=== PATIENT | female | born 1940 | race Caucasian/White ===

== ENCOUNTER 2018-05-13 13:29 | Outpatient (CLI) | payer MEDICARE | END 2018-05-13 13:30 | disposition home or self-care (01) | LOC: ULT 13:29 | PROVIDERS: ATTEND Nurse Practitioner Adult Health | DX: R01.1 Cardiac murmur, unspecified (principal); I08.1 Rheumatic disorders of both mitral and tricuspid valves | CPT/HCPCS: 93306 ==

== ENCOUNTER 2018-11-30 08:43 | Inpatient (IN) | payer MEDICARE ==
[2018-11-30] MEDS ORDERED: hydrALAZINE 20 MG/ML VIAL SLOW IVP PRN (11:49)
[2018-11-30] MEDS ORDERED: Bisacodyl 10 MG SUPP PR PRN (11:49)
[2018-11-30] MEDS ORDERED: Cepastat Lozenges 1 LOZ PO PRN (11:49)
[2018-11-30] MEDS ORDERED: Loratadine 10 MG TAB PO PRN (11:49)
[2018-11-30] MEDS ORDERED: Ondansetron ODT 4 MG TAB PO PRN (11:49)
[2018-11-30] MEDS ORDERED: Loperamide HCl 2 MG CAP PO PRN (11:49)
[2018-11-30] MEDS ORDERED: Sodium Chloride 0.65% Nasal 44 ML BOT EA NARE PRN (11:49)
[2018-11-30] MEDS ORDERED: Diabetic Tussin 200 MG/10 ML UDCUP PO PRN (11:49)
[2018-11-30] MEDS ORDERED: Senokot S 8.6-50 MG TAB PO PRN (11:49)
[2018-11-30] MEDS ORDERED: Calcium Carbonate 500 MG ChewTAB PO PRN (11:49)
[2018-11-30] MEDS ORDERED: Zolpidem Tartrate 5 MG TAB PO PRN (11:49)
[2018-11-30] MEDS ORDERED: Ondansetron PF 4 MG/2 ML Vial IVP PRN (11:49)
[2018-11-30 12:28] LABS: #Eosinphils 0.4 thou/uL (0.0-0.7); #Lymphocytes 1.2 thou/uL (1.20-3.40); #Monocytes 0.9 thou/uL (0.11-0.59); #Neutrophils 8.7 thou/uL (1.40-6.50); %Basophils 0.2 % (0.0-1.0); %Eosinophils 3.2 % (0.0-10.0); %Lymphocytes 10.5 % (21.0-51.0); %Monocytes 8.2 % (0.0-10.0); %Neutrophils 77.9 % (42.0-75.0); Hemoglobin 8.3 g/dL (12.0-16.0); Mean Corpuscular HGB CONC 32.5 g/dL (32.0-36.0); Mean Corpuscular Volume 89.2 fL (78.0-98.0); Mean Platelet Volume 7.3 fL (7.4-10.4); Platelet Count 162 thou/uL (130-400); RBC Distribution Width 13.9 % (11.5-14.5); Red Blood Cell (RBC) Count 2.88 mill/uL (4.20-5.40); White Blood Cell (WBC) Count 11.2 thou/uL (4.8-10.8)
--- NOTE | 2018-11-30 12:44 | HP ---
PRIMARY CARE PHYSICIAN: Dr. Nguyễn. REASON FOR ADMISSION: Sent from rehab for urinary tract infection and weakness. HISTORY OF PRESENT ILLNESS: A 78-year-old female, who was recently hospitalized at [facility] for generalized weakness. As per report, she was there on November 13, 2018, for foul smelling urine and generalized weakness. The patient also had altered mental status. The patient also has underlying dementia with Lewy body dementia. The patient was treated with E coli urinary tract infection and subsequently this patient was transferred to rehabilitation. The patient does not have any good progress over there and she was having constipation and urinary tract infection. The patient also had echocardiography in May 2018, which showed normal EF. On November 30, the patient had abdomen and pelvis CT scan which showed finding suggestive of colonic fecal in retention and finding compatible for proctitis. The patient also had outpatient basis MRI of thoracic and lumbar spine on November 26, 2018, which showed mild spondylosis of thoracic spine with mild central canal narrowing at T10 and T11. Lumbar spine MRI showed multilevel degenerative spine changes but more pronounced changes at L4-L5 level. The patient does have subjective sensory changes in both lower extremity. She required Frazier catheterization placement. As the patient did not have any significant progress that is why rehab physician sent her back to the hospital for more evaluation. The patient has underlying diagnosis of cauda equina from lumbar stenosis. The patient yesterday routine blood test showed leukocytosis with left shift, hyponatremia and hyperkalemia. The patient has baseline dementia and that is why she is not able to provide good history. PAST MEDICAL HISTORY: Lewy body dementia, recurrent urinary tract infection, rheumatoid arthritis, polymyalgia rheumatica, physical deconditioning, frequent fall, hypertension, osteoarthritis, hypothyroidism, gastroesophageal reflux disease. PAST SURGICAL HISTORY: Unable to review at this point. ALLERGIES: NO KNOWN DRUG ALLERGIES. FAMILY HISTORY: The patient is not able to provide any good family history. SOCIAL HISTORY: The patient is from rehab. Before that the patient was living in [place], [place]. No history of tobacco, alcohol, or illicit drug abuse. FAMILY HISTORY: The patient is not able to provide any significant family. PAST PSYCHIATRIC HISTORY: Dementia, anxiety and depression. CURRENT HOME MEDICATION: 1. Amitriptyline 25 mg p.o. daily. 2. Amlodipine 2.5 mg daily. 3. Celecoxib 200 mg p.o. daily. 4. Cymbalta 60 mg b.i.d. 5. Plaquenil 400 mg b.i.d. 6. Synthroid 75 mcg p.o. daily. 7. Cytomel 5 mcg daily. 8. Lisinopril 40 mg daily. 9. Namenda 7 mg daily. 10. Methotrexate 10 mg every week. 11. Omeprazole 20 mg daily. 12. Lyrica 75 mg b.i.d. 13. Vitamin E 100 units p.o. daily. Hospital course and rehab record reviewed. Previous hospital record reviewed. REVIEW OF SYSTEM: All review system tried to review with patient but unable to review due to dementia PHYSICAL EXAMINATION: VITAL SIGNS: Currently, blood pressure 130/78, pulse 72, respiratory rate 18, temperature 98.6, saturation 100% on room air. GENERAL: The patient is currently alert, awake, chronically ill, no obvious acute distress. HEENT: Head normocephalic, atraumatic. Eyes pupils round, reactive to light. Extraocular muscle intact. ENT, oropharynx within normal limits. Moist mucous membranes. No oral lesion. No pharyngeal erythema, no exudate. NECK: Supple. No JVD. No thyromegaly. No carotid bruit. No jugular venous distention. LUNGS: Clear to auscultation without any rhonchi or rales. CARDIAC: S1, S2 regular. No murmur. No gallop. No rub. ABDOMEN: Soft. Bowel sounds present. Nontender. Nondistended. No organomegaly. No mass. No suprapubic tenderness. Frazier catheter in place. EXTREMITIES: No edema. Good distal pulsation. NEUROLOGIC: The patient is moving all 4 limbs. She has subjective sensory changes in both lower extremities below umbilicus. Detailed neurological examination is difficult to perform because of dementia. SIGNIFICANT LABORATORY DATA: Chest x-ray done yesterday showed no evidence of acute cardiopulmonary process. CT abdomen and pelvis done on November 22, 2018, showing proctitis and fecal retention with constipation. MRI thoracic spine showing mild spondylitic changes of the thoracic spine at T10 and T11. MRI lumbar spine showing multilevel lumbar stenosis with pronounced changes at L4-L5 level. CBC: WBC 16.8, hemoglobin 8.7, platelet 207 with left shift. BMP: Sodium 130, potassium 5.2, chloride 97, carbon dioxide 27, BUN 16, creatinine 0.66, glucose 83, calcium 8.5. LFT: AST 41, ALT 44, alkaline phosphatase 86, albumin 2.7. Lactic acid 1.6. Urinalysis recently suggested UTI. C difficile test was done on November 20, was negative. ASSESSMENT AND PLAN: 1. Generalized weakness with failure to thrive. 2. Recurrent urinary tract infection related with chronic indwelling Frazier catheter. 3. Proctitis and severe constipation. 4. Cauda equina syndrome possibly from lumbar stenosis with L4-L5 as well as T10 -T11 level. 5. Hyponatremia and hyperkalemia. 6. Normocytic normochromic anemia. 7. Hypoalbuminemia due to protein-calorie malnutrition. 8. Hypertension. 9. Hypothyroidism. 10. Lewy body dementia. 11. Anxiety and depression. 12. Gastroesophageal reflux disease. PLAN: 1. Full admission to medical floor. Gastroenterology consultation for proctitis. Send urine culture and start meropenem. Neurosurgery evaluation. Nutritional supplement with Ensure t.i.d. Treat constipation with MiraLAX daily. Resume selected medication. 2. DVT prophylaxis with Lovenox 40 mg subcu daily. 3. GI prophylaxis with Pepcid 20 mg p.o. b.i.d. CODE STATUS: The patient is DNR, confirmed with her daughter. The patient's daughter is surrogate decision maker. DISPOSITION PLAN: Further plan based on clinical course. The patient eventually will go back to rehab. We will continue PT/OT while in hospital as well. Job ID: [id number] [facility]
[2018-11-30 12:48] LABS: ALT (SGPT) 30 U/L (8-55); AST (SGOT) 30 U/L (5-34); Albumin 2.5 g/dL (3.4-4.8); Alkaline Phosphatase 75 U/L (40-110); Anion Gap 10 mmol/L (10-20); BUN (Urea Nitrogen) 12 mg/dL (9.8-20.1); Bilirubin, Total 0.3 mg/dL (0.2-1.2); Calc. Creatinine Clearance 78 mL/min (70-130); Calcium 8.4 mg/dL (7.8-10.44); Carbon Dioxide 26 mmol/L (23-31); Chloride 100 mmol/L (98-107); Estimated GFR-MDRD Greater than 90; Globulin 2.8 g/dL (2.4-3.5); Glucose 79 mg/dL (83-110); Potassium 4.3 mmol/L (3.5-5.1); Protein, Total 5.3 g/dL (6.0-8.3); Sodium 132 mmol/L (136-145)
[2018-11-30 12:54] VITALS: BMI 25.7
[2018-11-30] MEDS: MEROPENEM 1 GM/50 ML 1 GM in Premix Bag 1 BAG IVPB SCH ×2 (14:22→21:48)
[2018-11-30] MEDS: DULoxetine 60 MG CAP PO SCH (20:23)
[2018-11-30] MEDS: Pregabalin 75 MG CAP PO SCH (20:23)
[2018-11-30] MEDS: Famotidine 20 MG TAB PO SCH (20:28)
[2018-11-30] MEDS ORDERED: Hydroxychloroquine Sulfate 200 MG TAB PO SCH (21:00)
[2018-11-30] MEDS ORDERED: Amitriptyline HCl 25 MG TAB PO SCH (22:30)
[2018-11-30] MEDS: Acetaminophen 325 MG TAB PO PRN (22:44)
--- NOTE | 2018-12-01 01:19 | CON ---
DATE OF CONSULTATION: This is Iggy Cai PA-C dictating a report for Oskar France MD. This is a 50-minute initial patient evaluation of which greater than 50% of the exam was spent counseling and coordinating the patient's care. Remainder of the exam was spent in review of the patient's medical records and formulation of treatment plan as well as review of appropriate imaging studies. CHIEF COMPLAINT: Bilateral lower extremity weakness with bowel and bladder dysfunction over the past 2 weeks. HISTORY OF PRESENT ILLNESS: Ms. Hightower is a pleasant 78-year-old female, who is a [facility] for [facility] above complaints. She and her daughter provides her history. Apparently, the patient was very high functioning, although required the use of a walker over the past 2 years, but since November 08 has had some difficulty with walking and some falls. She was diagnosed with a urinary tract infection and then was placed in [facility]. Since November 12, 2018, the patient has been unable to stand secondary to significant paresthesias and dysesthesias into the bilateral feet. The patient states she feels as though she is walking through concrete and this has limited her mobility. She does not complain much in the way of back pain, but does have some saddle anesthesia. She has had significant constipation over the past 1 to 2 weeks. In hindsight, the patient and her daughter note that she likely has been dealing with these symptoms, especially some low back pain and right leg paresthesias over the past 2 years. Her symptoms have worsened over the past 8 weeks and have become severe over the past 2 weeks. Of note, the patient has been seen by Dr. Martinez with Neurology and possibly has a diagnosis of Lewy body dementia versus Parkinson's. The patient again has noticed significant decreased sensation into the right lower extremity. She is on Plaquenil for rheumatoid arthritis and was previously on methotrexate; however, has not been on the methotrexate for the past 2 weeks. She is not on any blood thinners. The patient's thoracic MRI shows some mild to moderate stenosis throughout multiple levels of the thoracic spine, what is more concerning is her lumbar spine. She has significant severe narrowing from virtually L1-S1. I believe that this may be causing significant impingement and leading to her cauda equina dysfunction and significant right foot weakness and right leg paresthesias. PHYSICAL EXAMINATION: The patient is awake, alert, and appropriate. Her GCS is 15. She correctly provides history and that she is originally from [place], [place]. She follows commands equally in all 4 extremities. However, she does have overall generalized weakness in the bilateral lower extremities. She has severe weakness into right dorsiflexion and plantar flexion. She has decreased sensation to light touch in the bilateral feet as well as some decreased sensation in the saddle region. She has significant bilateral gluteal pressure sores that appear to be stage II, if not into stage III. This appear to be well away from the lumbar spine. She is able to correctly identify a pen and correctly define its purpose as well as define the definition of an island. She is very neurologically intact, appears to be very high functioning. IMPRESSION DIAGNOSES: 1. Progressive worsening of low back pain and right foot weakness. 2. Right leg paresthesias and bilateral feet paresthesias, worse on the right. 3. Possible Lewy body dementia. 4. Significant bladder retention with urinary tract infection, on antibiotics. 5. Significant constipation. 6. History of rheumatoid arthritis, on Plaquenil and history of being on methotrexate. PLAN: At this time, I discussed the patient's case and imaging with Dr. France. We have discussed the possibility of an L1-S1 laminectomy, partial facetectomies and foraminotomies. This case has been postponed for tomorrow. I have discussed in great detail the procedure and risks and benefits. The patient and her daughter wished to proceed with the surgical intervention. Her hemoglobin is low at 8.3, and we will order 2 units of blood. Also, obviously she be n.p.o. at midnight. I have let the patient and her family know that the surgery should halt the progression of further bowel or bladder dysfunction as well as right foot weakness, but we can't guarantee that. She will significantly regain any type of function. They are aware of this and still appreciative and would like to proceed with surgery. We will obtain consent. Please call with any changes in the patient's neurologic status, otherwise she needs to be n.p.o. at midnight and we will proceed with L1-S1 laminectomies, partial facetectomies, foraminotomies tomorrow. Job ID: [id number]
[2018-12-01] MEDS: Levothyroxine Sodium 75 MCG TAB PO SCH (02:43)
[2018-12-01] MEDS: MEROPENEM 1 GM/50 ML 1 GM in Premix Bag 1 BAG IVPB SCH ×3 (06:17→21:54)
[2018-12-01 06:59] LABS: Anion Gap 9 mmol/L (10-20); BUN (Urea Nitrogen) 10 mg/dL (9.8-20.1); Calc. Creatinine Clearance 88 mL/min (70-130); Calcium 8.4 mg/dL (7.8-10.44); Carbon Dioxide 27 mmol/L (23-31); Chloride 100 mmol/L (98-107); Estimated GFR-MDRD Greater than 90; Glucose 74 mg/dL (83-110); Potassium 3.8 mmol/L (3.5-5.1); Sodium 132 mmol/L (136-145)
[2018-12-01] MEDS ORDERED: Fleet Enema 133 ML BOT PR PRN (07:35)
[2018-12-01] MEDS ORDERED: Milk Of Magnesia 30 ML UDCUP PO PRN (07:35)
[2018-12-01 08:14] LABS: #Eosinphils 0.1 thou/uL (0.0-0.7); #Lymphocytes 1.3 thou/uL (1.20-3.40); #Neutrophils 7.4 thou/uL (1.40-6.50); %Basophils 0.4 % (0.0-1.0); %Eosinophils 0.5 % (0.0-10.0); %Lymphocytes 13.7 % (21.0-51.0); %Neutrophils 75.4 % (42.0-75.0); Hemoglobin 11.2 g/dL (12.0-16.0); Mean Corpuscular HGB CONC 33.8 g/dL (32.0-36.0); Mean Corpuscular Hemoglobin 29.1 pg (27.0-31.0); Mean Platelet Volume 7.6 fL (7.4-10.4); Platelet Count 165 thou/uL (130-400); RBC Distribution Width 14.1 % (11.5-14.5); Red Blood Cell (RBC) Count 3.86 mill/uL (4.20-5.40); White Blood Cell (WBC) Count 9.8 thou/uL (4.8-10.8)
[2018-12-01] MEDS: DULoxetine 60 MG CAP PO SCH ×2 (08:20→21:03)
[2018-12-01] MEDS: Pregabalin 75 MG CAP PO SCH ×2 (08:20→21:02)
[2018-12-01] MEDS: Lisinopril 20 MG TAB PO SCH (08:21)
[2018-12-01] MEDS: Amlodipine 5 MG TAB PO SCH (08:21)
[2018-12-01] MEDS: Famotidine 20 MG TAB PO SCH (08:22)
[2018-12-01] MEDS: Liothyronine Sodium 5 MCG TAB PO SCH (08:29)
[2018-12-01] MEDS: Multivitamin W/ Minerals 1 TAB PO SCH (08:31)
[2018-12-01] MEDS: Cyanocobalamin (Vitamin B-12) 1,000 MCG TAB PO SCH (08:32)
[2018-12-01] MEDS: Folic Acid 1 MG TAB PO SCH (08:32)
[2018-12-01] MEDS ORDERED: Amitriptyline HCl 25 MG TAB PO SCH (09:00)
[2018-12-01] MEDS ORDERED: Enoxaparin Sodium 40 MG/0.4 ML SYRINGE SC SCH (09:00)
[2018-12-01] MEDS ORDERED: Ondansetron HCl/PF 4 MG/2 ML Vial IVP PRN ×3 (09:44→16:37)
[2018-12-01] MEDS: Polyethylene Glycol 3350 17 GM Packet PO SCH (09:47)
[2018-12-01] MEDS: Nystatin 500,000 UNITS/5 ML UDCUP PO SCH ×4 (09:47→21:02)
--- NOTE | 2018-12-01 10:15 | PDOC.HOSPP ---
- Subjective Encounter Date: 12/01/18 Encounter Time: 09:00 Subjective: Patient seen and examined. No new complaints. No overnight events - Objective Vital Signs & Weight: Vital Signs (12 hours) Temp Pulse Pulse Resp BP BP BP 12/01/18 08:21 93 151/73 H 12/01/18 07:22 98.9 F 93 18 151/73 H 12/01/18 05:10 98.4 F 97 18 137/88 12/01/18 02:46 97.7 F 85 20 119/70 12/01/18 02:15 98.1 F 86 20 117/68 12/01/18 01:50 98.1 F 87 20 117/68 12/01/18 00:17 99.1 F 93 20 125/65 11/30/18 22:53 98.9 F 96 20 129/64 Pulse Ox 12/01/18 08:21 12/01/18 07:22 96 12/01/18 05:10 97 12/01/18 02:46 97 12/01/18 02:15 97 12/01/18 01:50 96 12/01/18 00:17 93 L 11/30/18 22:53 92 L Weight Weight 145 lb 6.4 oz I&O: 11/30/18 12/01/18 12/02/18 06:59 06:59 06:59 Intake Total 1000 Output Total 850 Balance 150 Result Diagrams: 12/01/18 06:29 12/01/18 06:29 Hospitalist ROS - Review of Systems ENT: denies: ear pain, ear discharge, nose pain, nose discharge, nose congestion , mouth pain, mouth swelling, throat pain, throat swelling, other Respiratory: denies: cough, dry, shortness of breath, hemoptysis, SOB with excertion, pleuritic pain, sputum, wheezing, other Cardiovascular: denies: chest pain, palpitations, orthopnea, paroxysmal noc. dyspnea, edema, light headedness, other Gastrointestinal: denies: nausea, vomiting, abdominal pain, diarrhea, constipation, melena, hematochezia, other Genitourinary: denies: dysuria, frequency, incontinence, hematuria, retention, other Musculoskeletal: denies: neck pain, shoulder pain, arm pain, back pain, hand pain, leg pain, foot pain, other Other: not reliable due to her dementia - Medication Medications: Active Medications Generic Name Dose Route Start Last Admin Trade Name Yomi PRN Reason Stop Dose Admin Acetaminophen 650 mg 11/30/18 11:49 11/30/18 22:44 Tylenol PO 650 mg Q4H PRN Administration Headache/Fever/Mild Pain (1-3) Amlodipine Besylate 2.5 mg 12/01/18 09:00 12/01/18 08:21 Norvasc PO 2.5 mg DAILY BETHANY Administration Cyanocobalamin 1,000 mcg 12/01/18 09:00 12/01/18 08:32 Vitamin B-12 PO Not Given DAILY BETHANY Duloxetine HCl 60 mg 11/30/18 21:00 12/01/18 08:20 Cymbalta PO 60 mg BID BETHANY Administration Famotidine 20 mg 11/30/18 21:00 12/01/18 08:22 Pepcid PO 20 mg BID BETHANY Administration Folic Acid 1 mg 12/01/18 09:00 12/01/18 08:32 Folvite PO Not Given DAILY [facility] Meropenem 1 gm/ Device 50 mls @ 200 mls/hr 11/30/18 14:00 12/01/18 06:17 IVPB 50 mls Q8HR BETHANY Administration Iron/Minerals/Multivitamins 1 tab 12/01/18 09:00 12/01/18 08:31 Theragran M PO Not Given DAILY BETHANY Levothyroxine Sodium 75 mcg 12/01/18 06:00 12/01/18 02:43 Synthroid PO Not Given 0600 [facility] Liothyronine Sodium 5 mcg 12/01/18 09:00 12/01/18 08:29 Cytomel PO 5 mcg DAILY BETHANY Administration Lisinopril 40 mg 12/01/18 09:00 12/01/18 08:21 Zestril PO 40 mg DAILY BETHANY Administration Nystatin 500,000 units 12/01/18 09:00 12/01/18 09:47 Mycostatin PO 500,000 units QID BETHANY Administration Pantoprazole Sodium 40 mg 12/01/18 09:00 12/01/18 09:47 Protonix PO 40 mg DAILY BETHANY Administration Polyethylene Glycol 17 gm 12/01/18 09:00 12/01/18 09:47 Miralax PO Not Given DAILY [facility] Pregabalin 75 mg 11/30/18 21:00 12/01/18 08:20 Lyrica PO 75 mg BID BETHANY Administration Sodium Chloride 10 ml 11/30/18 21:00 12/01/18 08:33 Flush - Normal Saline IVF 10 ml Q12HR BETHANY Administration Vitamin E 200 units 12/01/18 09:00 12/01/18 08:32 Vitamin E PO Not Given DAILY BETHANY - Exam General Appearance: NAD, awake alert Eye: PERRL, anicteric sclera ENT: normocephalic atraumatic, no oropharyngeal lesions Neck: supple, symmetric, no JVD, no thyromegaly Heart: RRR, no murmur, no gallops, no rubs, normal peripheral pulses Respiratory: CTAB, no wheezes, no rales, no ronchi Gastrointestinal: soft, non-tender, non-distended, normal bowel sounds, no palpable masses, no hepatomegaly Extremities: no cyanosis, no clubbing, no edema Skin: normal turgor, no lesions Neurological - other findings: weakness noted in leg Musculoskeletal: normal tone, normal strength Psychiatric: normal affect, normal behavior Hosp A/P (1) Cauda equina syndrome Code(s): G83.4 - CAUDA EQUINA SYNDROME Status: Acute Plan: due to lumbar stenosis (2) Proctitis Code(s): K62.89 - OTHER SPECIFIED DISEASES OF ANUS AND RECTUM Status: Acute (3) UTI (urinary tract infection) Status: Acute Qualifiers: Urinary tract infection type: catheter-associated UTI Indwelling urinary catheter type: indwelling urethral catheter (4) Anemia, normocytic normochromic Code(s): D64.9 - ANEMIA, UNSPECIFIED Status: Chronic (5) Dementia Code(s): F03.90 - UNSPECIFIED DEMENTIA WITHOUT BEHAVIORAL DISTURBANCE Status: Chronic (6) Hypothyroidism Code(s): E03.9 - HYPOTHYROIDISM, UNSPECIFIED Status: Chronic (7) Rheumatoid arthritis Code(s): M06.9 - RHEUMATOID ARTHRITIS, UNSPECIFIED Status: Chronic (8) Severe muscle deconditioning Code(s): R29.898 - OTH SYMPTOMS AND SIGNS INVOLVING THE MUSCULOSKELETAL SYSTEM Status: Chronic (9) Constipation Code(s): K59.00 - CONSTIPATION, UNSPECIFIED Status: Acute - Plan old records reviewed/req, plan discussed w/ family, continue antibiotics, DVT proph w/lovenox 09/29/19- continue meropenam for UTI and follow culture result, neurosurgeon planning to do L5 S1 lumbar laminectomy today, discussed with daughter, home medication reconciled, medication reviewed as above, symptomatic treatment
[2018-12-01] MEDS ORDERED: Ondansetron PF 4 MG/2 ML Vial ONE (10:38)
[2018-12-01] MEDS ORDERED: ePHEDrine 50 MG/ML VIAL ONE (10:38)
[2018-12-01] MEDS ORDERED: Lidocaine 1% PF 5 ML VIAL ONE (10:38)
[2018-12-01] MEDS ORDERED: Glycopyrrolate 0.2 MG/ML 5 ML SYRINGE ONE (10:38)
[2018-12-01] MEDS ORDERED: PROPOFOL 200 MG/20 ML VIAL ONE (10:38)
[2018-12-01] MEDS ORDERED: PHENYLEPHRINE-NS 100 MCG/ML 10 ML SYRINGE ONE (10:38)
[2018-12-01] MEDS ORDERED: Rocuronium Bromide 10 MG/ML (10ML VIAL) ONE (10:38)
[2018-12-01] MEDS ORDERED: Fentanyl 250 MCG/5 ML VIAL ONE (11:32)
[2018-12-01] MEDS ORDERED: Thrombin 5000 UNITS/5 ML VIAL ONE ×2 (12:02→14:20)
[2018-12-01] MEDS ORDERED: Sodium Chloride 0.9% 10 ML ONE (12:02)
[2018-12-01] MEDS: Lidocaine Viscous Sol 2% 15 ml UD Cup SSP SCH ×3 (12:22→21:02)
--- NOTE | 2018-12-01 12:32 | PRG ---
DATE OF SERVICE: 12/01/2018 SUBJECTIVE: Ms. Hightower is a 78-year-old woman. Our team was contacted by Dr. Nguyễn for progressive cauda equina syndrome and essentially manifested by weakness, pain, numbness, difficulty ambulating, and finally saddle anesthesia. As such, MRI was obtained and demonstrates severe stenosis from L1-S1. Given the severity of her stenosis, I recommended transfer from inpatient rehab to [facility] for multilevel lumbar laminectomy. She has been admitted operating room tomorrow. Job ID: [id number]
[2018-12-01] MEDS ORDERED: Albumin 5% 500 ML ONE (13:23)
[2018-12-01] MEDS ORDERED: Phenylephrine HCL 10 MG/ML VIAL ONE ×3 (13:23→13:35)
[2018-12-01] MEDS ORDERED: Morphine 2 MG/ML SYRINGE SLOW IVP PRN (16:36)
[2018-12-01] MEDS ORDERED: Meperidine HCl/PF 25 MG/ML VIAL SLOW IVP PRN (16:37)
[2018-12-01] MEDS ORDERED: Promethazine HCl 25 MG/ML VIAL IM PRN (16:37)
[2018-12-01] MEDS ORDERED: Promethazine HCl 25 MG/ML VIAL SLOW IVP PRN (16:37)
[2018-12-01] MEDS ORDERED: HYDROmorphone 2 MG/ML VIAL SLOW IVP PRN (16:37)
[2018-12-01] MEDS ORDERED: Fentanyl 100 MCG/2 ML VIAL ONE (17:43)
[2018-12-01] MEDS ORDERED: tiZANidine HCl 4 MG TAB PO PRN (20:15)
[2018-12-01] MEDS: CEFAZOLIN 2 GM in Premix Bag 1 BAG IVPB SCH (21:00)
[2018-12-01] MEDS: Amitriptyline HCl 25 MG TAB PO SCH (21:02)
[2018-12-02] MEDS: Acetaminophen 325 MG TAB PO PRN ×2 (00:43→11:53)
[2018-12-02] MEDS: CEFAZOLIN 2 GM in Premix Bag 1 BAG IVPB SCH ×3 (04:14→19:21)
[2018-12-02] MEDS: HYDROcodone/Acetaminophen 5/325 mg Tablet PO PRN ×2 (04:20→19:18)
[2018-12-02 04:44] LABS: Anion Gap 12 mmol/L (10-20); BUN (Urea Nitrogen) 16 mg/dL (9.8-20.1); Calc. Creatinine Clearance 82 mL/min (70-130); Calcium 8.4 mg/dL (7.8-10.44); Carbon Dioxide 25 mmol/L (23-31); Chloride 99 mmol/L (98-107); Estimated GFR-MDRD Greater than 90; Glucose 126 mg/dL (83-110); Potassium 4.6 mmol/L (3.5-5.1); Sodium 131 mmol/L (136-145)
[2018-12-02 04:59] LABS: Band 2 % (5-11); Hemoglobin 9.5 g/dL (12.0-16.0); Lymphocytes 6 % (21-51); MDiff Complete? YES; Mean Corpuscular Hemoglobin 29.7 pg (27.0-31.0); Mean Corpuscular Volume 87.2 fL (78.0-98.0); Mean Platelet Volume 7.8 fL (7.4-10.4); Monocytes 3 % (0-10); Myelocyte 1 % (0-0); Neutrophil 88 % (42-75); Platelet Count 204 thou/uL (130-400); RBC Distribution Width 13.9 % (11.5-14.5); Red Blood Cell (RBC) Count 3.21 mill/uL (4.20-5.40); White Blood Cell (WBC) Count 19.4 thou/uL (4.8-10.8)
[2018-12-02] MEDS: MEROPENEM 1 GM/50 ML 1 GM in Premix Bag 1 BAG IVPB SCH ×3 (06:19→22:12)
[2018-12-02] MEDS: Lidocaine Viscous Sol 2% 15 ml UD Cup SSP SCH ×4 (06:20→23:18)
[2018-12-02] MEDS: Levothyroxine Sodium 75 MCG TAB PO SCH (06:20)
[2018-12-02] MEDS: Liothyronine Sodium 5 MCG TAB PO SCH (08:31)
[2018-12-02] MEDS: Lisinopril 20 MG TAB PO SCH (08:33)
[2018-12-02] MEDS: Cyanocobalamin (Vitamin B-12) 1,000 MCG TAB PO SCH (08:33)
[2018-12-02] MEDS: Amlodipine 5 MG TAB PO SCH (08:34)
[2018-12-02] MEDS: Folic Acid 1 MG TAB PO SCH (08:34)
[2018-12-02] MEDS: DULoxetine 60 MG CAP PO SCH ×2 (08:34→19:19)
[2018-12-02] MEDS: Multivitamin W/ Minerals 1 TAB PO SCH (08:36)
[2018-12-02] MEDS: Pregabalin 75 MG CAP PO SCH ×2 (08:36→19:19)
[2018-12-02] MEDS: Polyethylene Glycol 3350 17 GM Packet PO SCH (08:38)
--- NOTE | 2018-12-02 09:34 | CON ---
DATE OF CONSULTATION: 12/01/2018 REASON FOR CONSULTATION: CAT scan showing thickening of the rectal vault. HISTORY OF PRESENT ILLNESS: Ms. Patricia Hightower is a very pleasant 78-year- old female, hospitalized here with UTI and some constipation recently. She was at rehab for a while, came back yesterday because of worsening clinical condition. The patient is a very pleasant, elderly female, appears very comfortable. She is awake, alert, and communicative. Although, she has history of dementia, she is very communicative. She was seen in the room along with the patient's daughter, Isela. The patient apparently has had some chronic back pain over the last year or so. She also has noted some paresthesia of the lower extremities approximately a couple of months ago. She felt like her feet were lead and did not have any feeling. She also developed right footdrop for a month ago. The patient had CAT scan of the spine and MRI and was found to have spinal stenosis and cauda equina syndrome. She is being seen by Neurosurgery Service and plan is being is made to do surgery today. Her daughter tells me her muscles fully functional until probably a month ago. She is getting around with a walker and she has enjoyed walking. Over the last one month, her ability for movement is markedly decreased. She cannot stand up and she has weakness in legs. She also has constipation for nearly 10 days and for several days, she was getting laxatives. Finally, one day her bowel opened up and she had multiple uncontrollable diarrhea. She was seen by Dr. Vyas and had a stool exam done, came back negative for C difficile . She had a stool yesterday but no stool today. No hematochezia. No melena. No relevant history. PAST MEDICAL HISTORY: 1. History of dementia, told it was Lewy body dementia by Dr. Martinez a year ago. 2. Recurrent UTI. 3. Rheumatoid arthritis. 4. Polymyalgia rheumatica. 5. Physical deconditioning. 6. Hypertension. 7. Osteoarthritis. 8. Hypothyroidism. 9. Gastroesophageal reflux disease. SOCIAL HISTORY: The patient does not smoke or drink alcohol. ALLERGIES: NONE. MEDICATION LIST: Reviewed. REVIEW OF SYSTEMS: CONSTITUTIONAL: Has history of weakness, not able to move around, has weakness in extremities, history of loss of bowel control. MALE INFERTILITY SPECIALIST: History of dementia. She also has recently which have resolved. No chronic headache. No syncope. RESPIRATORY: No history of chronic cough or hemoptysis. No dyspnea, orthopnea , or PND. CARDIOVASCULAR: No chest pain. No dyspnea, orthopnea, or PND. GI: History of constipation, followed by diarrhea and also has history of fecal incontinence. Sometimes, she does not really feel the stool coming out. PHYSICAL EXAMINATION: GENERAL: She is a very pleasant female, appears very comfortable. She is awake, alert, and communicative. VITAL SIGNS: She is afebrile. Pulse is 92, blood pressure 137/63. HEENT: Conjunctivae are clear. NECK: Supple. No adenitis or thyromegaly noted. CARDIOVASCULAR: First and second heart sounds heard. LUNGS: Clear to auscultation. ABDOMEN: Soft. No organomegaly. No tenderness. No masses. EXTREMITIES: Reveal no edema. IMPRESSION: 1. Back pain, right footdrop, and also appears to have some spinal cord compression from her spinal stenosis and possibly degenerative joint disease. The plan is being made for surgery today. 2. History of constipation, diarrhea, fecal incontinence, mostly from her spinal cord compression_. The CAT scan does show thickening of the rectal vault and I believe mostly from fecal impaction. At the present time, she has no active GI symptoms. I did talk to Isela, her daughter about this information. I told her she may need a proctoscopy sometimes in the future, this will be done as nonurgent. The plan is for her to have surgery today and I will follow her up in the next couple of days. Hopefully, we can do a proctoscopy before discharge. Job ID: [id number] [facility]
[2018-12-02] MEDS: Nystatin 500,000 UNITS/5 ML UDCUP PO SCH ×4 (09:39→23:18)
--- NOTE | 2018-12-02 10:37 | PDOC.HOSPP ---
- Subjective Encounter Date: 12/02/18 Encounter Time: 08:40 Subjective: pt has lumbar laminectomy yesterday, Patient seen and examined. No new complaints. No overnight events - Objective Vital Signs & Weight: Vital Signs (12 hours) Temp Pulse Resp BP BP BP Pulse Ox 12/02/18 08:34 89 110/66 12/02/18 08:33 110/66 12/02/18 08:15 92 L 12/02/18 07:48 98.1 F 89 16 110/56 L 110/66 91 L 12/02/18 04:28 98.3 F 95 18 98/51 L 95 12/02/18 00:47 98.3 F 103 H 18 123/62 99 Weight Weight 145 lb 6.4 oz I&O: 12/01/18 12/02/18 12/03/18 06:59 06:59 06:59 Intake Total 1000 Output Total 850 1150 Balance 150 -1150 Result Diagrams: 12/02/18 04:08 12/02/18 04:08 Hospitalist ROS - Review of Systems ENT: denies: ear pain, ear discharge, nose pain, nose discharge, nose congestion , mouth pain, mouth swelling, throat pain, throat swelling, other Respiratory: denies: cough, dry, shortness of breath, hemoptysis, SOB with excertion, pleuritic pain, sputum, wheezing, other Cardiovascular: denies: chest pain, palpitations, orthopnea, paroxysmal noc. dyspnea, edema, light headedness, other Gastrointestinal: denies: nausea, vomiting, abdominal pain, diarrhea, constipation, melena, hematochezia, other Genitourinary: denies: dysuria, frequency, incontinence, hematuria, retention, other Musculoskeletal: denies: neck pain, shoulder pain, arm pain, back pain, hand pain, leg pain, foot pain, other Other: not reliable due to dementia - Medication Medications: Active Medications Generic Name Dose Route Start Last Admin Trade Name Freq PRN Reason Stop Dose Admin Acetaminophen 650 mg 11/30/18 11:49 12/02/18 00:43 Tylenol PO 650 mg Q4H PRN Administration Headache/Fever/Mild Pain (1-3) Hydrocodone Bitart/Acetaminophen 1 tab 11/30/18 11:49 12/02/18 04:20 [place] 5/325 PO 1 tab Q4H PRN Administration Moderate Pain (4-6) Amitriptyline HCl 25 mg 12/01/18 21:00 12/01/18 21:02 Elavil PO 25 mg HS BETHANY Administration Amlodipine Besylate 2.5 mg 12/01/18 09:00 12/02/18 08:34 Norvasc PO 2.5 mg DAILY BETHANY Administration Cyanocobalamin 1,000 mcg 12/01/18 09:00 12/02/18 08:33 Vitamin B-12 PO 1,000 mcg DAILY BETHANY Administration Duloxetine HCl 60 mg 11/30/18 21:00 12/02/18 08:34 Cymbalta PO 60 mg BID BETHANY Administration Folic Acid 1 mg 12/01/18 09:00 12/02/18 08:34 Folvite PO 1 mg DAILY BETHANY Administration Meropenem 1 gm/ Device 50 mls @ 200 mls/hr 11/30/18 14:00 12/02/18 06:19 IVPB 50 mls Q8HR BETHANY Administration Iron/Minerals/Multivitamins 1 tab 12/01/18 09:00 12/02/18 08:36 Theragran M PO 1 tab DAILY BETHANY Administration Levothyroxine Sodium 75 mcg 12/01/18 06:00 12/02/18 06:20 Synthroid PO 75 mcg 0600 BETHANY Administration Lidocaine HCl 5 ml 12/01/18 11:30 12/02/18 06:20 Xylocaine 2% Viscous SSP 5 ml ACHS BETHANY Administration Liothyronine Sodium 5 mcg 12/01/18 09:00 12/02/18 08:31 Cytomel PO 5 mcg DAILY BETHANY Administration Lisinopril 40 mg 12/01/18 09:00 12/02/18 08:33 Zestril PO 40 mg DAILY BETHANY Administration Nystatin 500,000 units 12/01/18 09:00 12/02/18 09:39 Mycostatin PO 500,000 units QID BETHANY Administration Pantoprazole Sodium 40 mg 12/01/18 09:00 12/02/18 08:35 Protonix PO 40 mg DAILY BETHANY Administration Polyethylene Glycol 17 gm 12/01/18 09:00 12/02/18 08:38 Miralax PO 17 gm DAILY BETHANY Administration Pregabalin 75 mg 11/30/18 21:00 12/02/18 08:36 Lyrica PO 75 mg BID BETHANY Administration Sodium Chloride 10 ml 11/30/18 21:00 12/02/18 08:44 Flush - Normal Saline IVF 10 ml Q12HR BETHANY Administration Tizanidine HCl 2 mg 12/01/18 20:15 12/02/18 04:20 Zanaflex PO 2 mg TID PRN Administration Muscle Spasm Vitamin E 200 units 12/01/18 09:00 12/02/18 08:32 Vitamin E PO Not Given DAILY BETHANY - Exam General Appearance: NAD, awake alert Eye: PERRL, anicteric sclera ENT: normocephalic atraumatic, no oropharyngeal lesions Neck: supple, symmetric, no JVD, no thyromegaly Heart: RRR, no murmur, no gallops, no rubs, normal peripheral pulses Respiratory: CTAB, no wheezes, no rales, no ronchi Gastrointestinal: soft, non-tender, non-distended, normal bowel sounds Extremities: no cyanosis, no clubbing Skin: normal turgor, no lesions Musculoskeletal: normal tone, normal strength Psychiatric: normal affect, normal behavior Hosp A/P (1) Cauda equina syndrome Code(s): G83.4 - CAUDA EQUINA SYNDROME Status: Acute Plan: s/p lumbar laminectomy (2) Proctitis Code(s): K62.89 - OTHER SPECIFIED DISEASES OF ANUS AND RECTUM Status: Acute (3) UTI (urinary tract infection) Status: Acute Qualifiers: Urinary tract infection type: catheter-associated UTI Indwelling urinary catheter type: indwelling urethral catheter (4) Anemia, normocytic normochromic Code(s): D64.9 - ANEMIA, UNSPECIFIED Status: Chronic (5) Dementia Code(s): F03.90 - UNSPECIFIED DEMENTIA WITHOUT BEHAVIORAL DISTURBANCE Status: Chronic (6) Hypothyroidism Code(s): E03.9 - HYPOTHYROIDISM, UNSPECIFIED Status: Chronic (7) Rheumatoid arthritis Code(s): M06.9 - RHEUMATOID ARTHRITIS, UNSPECIFIED Status: Chronic (8) Severe muscle deconditioning Code(s): R29.898 - OTH SYMPTOMS AND SIGNS INVOLVING THE MUSCULOSKELETAL SYSTEM Status: Chronic (9) Constipation Code(s): K59.00 - CONSTIPATION, UNSPECIFIED Status: Acute - Plan old records reviewed/req, morgan catheter, continue antibiotics, PT/OT, marketing services coordinator 12/01/18- continue meropenam for UTI and follow culture result, neurosurgeon planning to do L5 S1 lumbar laminectomy today, discussed with daughter, home medication reconciled, medication reviewed as above, symptomatic treatment 12/02/18- overall doing well after surgery, stable, continue post operative care and PT/OT as per neurosurgery recommendation, follow on urine culture result, will need to go back to rehab on discharge, medication reviewed as above , symptomatic treatment
--- NOTE | 2018-12-02 11:58 | ULT ---
EXAM: Bilateral lower extremity venous duplex: Deep veins evaluated with color Doppler, spectral analysis, and compression. INDICATIONS: Bilateral lower extremity pain and edema. FINDINGS: Deep veins interrogated include common femoral vein, femoral vein, popliteal vein, and post erior tibial vein. These veins show normal compression and blood flow. No evidence of DVT. IMPRESSION: Negative Bilateral venous duplex exam.
[2018-12-02] MEDS ORDERED: Fluconazole In NaCl,Iso-Osm 100 MG in Admixture Fee 1 EACH IVPB SCH (12:00)
[2018-12-02] MEDS: Fluconazole In NaCl,Iso-Osm 100 MG in Admixture Fee 1 EACH IVPB SCH (12:44)
--- NOTE | 2018-12-02 12:55 | OP ---
DATE OF PROCEDURE: 12/01/2018 IDENTIFIER HORSE: Iggy Cai PA-C PREPROCEDURE DIAGNOSIS: Multilevel lumbar stenosis with cauda equina syndrome. POSTPROCEDURE DIAGNOSIS: Multilevel lumbar stenosis with cauda equina syndrome. PROCEDURES PERFORMED: L1-L2, L2-L3, L3-L4, L4-L5, L5-S1 laminectomies, partial facetectomies, foraminotomies. A modifier 57 should be added to this surgery as the decision to operate was made on the day I saw the patient. DESCRIPTION OF PROCEDURE: After informed consent was obtained from the patient, the patient was brought to the OR. Proper patient, pause, and identification were carried out. She was placed under excellent general endotracheal anesthesia and positioned prone on the OR table. All appropriate points were padded. We identified the L1 to S1 dorsal spines. Linear itz was made over this region. This area was sterilely cleansed, prepared, and draped. Proper patient, pause, and identification were carried out. The wound was then opened with a combination of sharp, monopolar, and blunt dissection. The L1-S1 dorsal spines and lamina were exposed. Localization film confirmed area of interest. We then performed L1 to S1 laminectomies, partial facetectomy, foraminotomies. There was no spinal fluid leak. Copious irrigation occurred throughout as did maximizing hemostasis. The wound was then closed in anatomic layers following sprinkling of vancomycin powder and irrigation. The patient was then emerged from anesthesia. Job ID: [id number]
--- NOTE | 2018-12-02 17:06 | PRG ---
DATE OF SERVICE: 12/02/2018 Ms. Hightower is improved. She feels the tug of the Frazier catheter. We now need to move her. Job ID: [id number]
[2018-12-02] MEDS: Amitriptyline HCl 25 MG TAB PO SCH (19:19)
[2018-12-03] MEDS: CEFAZOLIN 2 GM in Premix Bag 1 BAG IVPB SCH ×3 (03:43→23:12)
[2018-12-03] MEDS: Levothyroxine Sodium 75 MCG TAB PO SCH (05:16)
[2018-12-03] MEDS: MEROPENEM 1 GM/50 ML 1 GM in Premix Bag 1 BAG IVPB SCH (05:16)
[2018-12-03] MEDS: Lidocaine Viscous Sol 2% 15 ml UD Cup SSP SCH ×4 (07:58→21:59)
[2018-12-03] MEDS: Polyethylene Glycol 3350 17 GM Packet PO SCH (08:32)
[2018-12-03] MEDS: Multivitamin W/ Minerals 1 TAB PO SCH (08:34)
[2018-12-03] MEDS: Liothyronine Sodium 5 MCG TAB PO SCH (08:35)
[2018-12-03] MEDS: DULoxetine 60 MG CAP PO SCH ×2 (08:35→21:59)
[2018-12-03] MEDS: Lisinopril 20 MG TAB PO SCH (08:36)
[2018-12-03] MEDS: Cyanocobalamin (Vitamin B-12) 1,000 MCG TAB PO SCH (08:36)
[2018-12-03] MEDS: Amlodipine 5 MG TAB PO SCH (08:44)
[2018-12-03] MEDS: Folic Acid 1 MG TAB PO SCH (08:46)
[2018-12-03] MEDS: Pregabalin 75 MG CAP PO SCH ×2 (08:48→21:57)
[2018-12-03] MEDS: Nystatin 500,000 UNITS/5 ML UDCUP PO SCH ×4 (08:50→21:59)
[2018-12-03] MEDS: Acetaminophen 325 MG TAB PO PRN ×2 (09:53→21:57)
[2018-12-03 11:39] LABS: Hemoglobin 9.2 g/dL (12.0-16.0); Mean Corpuscular HGB CONC 31.6 g/dL (32.0-36.0); Mean Corpuscular Volume 88.8 fL (78.0-98.0); Mean Platelet Volume 7.4 fL (7.4-10.4); Platelet Count 242 thou/uL (130-400); RBC Distribution Width 14.2 % (11.5-14.5); Red Blood Cell (RBC) Count 3.29 mill/uL (4.20-5.40); White Blood Cell (WBC) Count 19.1 thou/uL (4.8-10.8)
--- NOTE | 2018-12-03 11:44 | PRG ---
DATE OF SERVICE: 12/03/2018 Patricia Hightower is postoperative day 2 from L1-S1 laminectomy. She continues to have improvement in her lower extremity function and feels the tug of the Frazier catheter. As such, her saddle symptoms are improving. She had a negative DVT assessment yesterday on ultrasound and we are continuing to work with mobilization. Of note, she does have leukocytosis up to 19, whether this is stress related or infectious, I am unsure. She is on meropenem and Ancef. She is also on Diflucan for yeast growth in her urine. Her pre-albumin is low and as such, we will need to work on getting her nutrition improves, so that she can heal not only her surgical wound, but obviously her sacral decubitus. Job ID: [id number]
[2018-12-03 11:58] LABS: Band 2 % (5-11); Hypochromia SLIGHT = 6-15 cells (100X) (0-5/hpf); Lymphocytes 6 % (21-51); MDiff Complete? YES; Monocytes 10 % (0-10); Neutrophil 81 % (42-75); Platelet Morphology Comment Appears Adequate; Polychromasia SLIGHT = 2-3 cells (100X) (0-2/hpf); Reactive Lymphocytes 1 % (0-10)
[2018-12-03 12:03] LABS: Anion Gap 8 mmol/L (10-20); BUN (Urea Nitrogen) 12 mg/dL (9.8-20.1); Calc. Creatinine Clearance 86 mL/min (70-130); Calcium 8.1 mg/dL (7.8-10.44); Carbon Dioxide 29 mmol/L (23-31); Chloride 97 mmol/L (98-107); Estimated GFR-MDRD Greater than 90; Glucose 109 mg/dL (83-110); Potassium 4.2 mmol/L (3.5-5.1); Sodium 130 mmol/L (136-145)
--- NOTE | 2018-12-03 12:03 | PDOC.HOSPP ---
- Subjective Encounter Date: 12/03/18 Encounter Time: 09:00 Subjective: Patient seen and examined. No new complaints. No overnight events - Objective Vital Signs & Weight: Vital Signs (12 hours) Temp Pulse Resp BP BP Pulse Ox 12/03/18 08:44 89 12/03/18 08:36 146/70 H 12/03/18 08:00 94 L 12/03/18 07:44 98.7 F 89 16 146/70 H 94 L 12/03/18 03:28 98.1 F 87 16 120/61 91 L Weight Admit Weight 145 lb 6.4 oz Weight 145 lb 6.4 oz I&O: 12/02/18 12/03/18 12/04/18 06:59 06:59 06:59 Intake Total 1810 Output Total 1150 1775 Balance -1150 35 Result Diagrams: 12/03/18 11:21 12/02/18 04:08 Additional Labs: Accuchecks 12/03/18 12/02/18 05:10 21:15 POC Glucose 97 142 H Hospitalist ROS - Review of Systems ENT: denies: ear pain, ear discharge, nose pain, nose discharge, nose congestion , mouth pain, mouth swelling, throat pain, throat swelling, other Respiratory: denies: cough, dry, shortness of breath, hemoptysis, SOB with excertion, pleuritic pain, sputum, wheezing, other Cardiovascular: denies: chest pain, palpitations, orthopnea, paroxysmal noc. dyspnea, edema, light headedness, other Gastrointestinal: denies: nausea, vomiting, abdominal pain, diarrhea, constipation, melena, hematochezia, other Genitourinary: denies: dysuria, frequency, incontinence, hematuria, retention, other Musculoskeletal: denies: neck pain, shoulder pain, arm pain, back pain, hand pain, leg pain, foot pain, other Skin: denies: rash, lesions, wendy, bruising, other - Medication Medications: Active Medications Generic Name Dose Route Start Last Admin Trade Name Freq PRN Reason Stop Dose Admin Acetaminophen 650 mg 11/30/18 11:49 12/03/18 09:53 Tylenol PO 650 mg Q4H PRN Administration Headache/Fever/Mild Pain (1-3) Hydrocodone Bitart/Acetaminophen 1 tab 11/30/18 11:49 12/02/18 19:18 [place] 5/325 PO 1 tab Q4H PRN Administration Moderate Pain (4-6) Amitriptyline HCl 25 mg 12/01/18 21:00 12/02/18 19:19 Elavil PO 25 mg HS BETHANY Administration Amlodipine Besylate 2.5 mg 12/01/18 09:00 12/03/18 08:44 Norvasc PO 2.5 mg DAILY BETHANY Administration Cyanocobalamin 1,000 mcg 12/01/18 09:00 12/03/18 08:36 Vitamin B-12 PO 1,000 mcg DAILY BETHANY Administration Duloxetine HCl 60 mg 11/30/18 21:00 12/03/18 08:35 Cymbalta PO 60 mg BID BETHANY Administration Folic Acid 1 mg 12/01/18 09:00 12/03/18 08:46 Folvite PO 1 mg DAILY BETHANY Administration Meropenem 1 gm/ Device 50 mls @ 200 mls/hr 11/30/18 14:00 12/03/18 05:16 IVPB 50 mls Q8HR BETHANY Administration Cefazolin Sodium/Dextrose 2 gm 50 mls @ 100 mls/hr 12/02/18 12:00 12/03/18 03 :43 / Device IVPB 50 mls 0400,1200,2000 BETHANY Administration Fluconazole/Sodium Chloride 50 mls @ 50 mls/hr 12/02/18 12:00 12/02/18 12:44 100 mg/ Miscellaneous IVPB 50 mls Medication 1200 BETHANY Administration Iron/Minerals/Multivitamins 1 tab 12/01/18 09:00 12/03/18 08:34 Theragran M PO 1 tab DAILY BETHANY Administration Levothyroxine Sodium 75 mcg 12/01/18 06:00 12/03/18 05:16 Synthroid PO 75 mcg 0600 BETHANY Administration Lidocaine HCl 5 ml 12/01/18 11:30 12/03/18 07:58 Xylocaine 2% Viscous SSP Not Given ACHS BETHANY Liothyronine Sodium 5 mcg 12/01/18 09:00 12/03/18 08:35 Cytomel PO 5 mcg DAILY BETHANY Administration Lisinopril 40 mg 12/01/18 09:00 12/03/18 08:36 Zestril PO 40 mg DAILY BETHANY Administration Nystatin 500,000 units 12/01/18 09:00 12/03/18 08:50 Mycostatin PO 500,000 units QID BETHANY Administration Pantoprazole Sodium 40 mg 12/01/18 09:00 12/03/18 08:36 Protonix PO 40 mg DAILY BETHANY Administration Polyethylene Glycol 17 gm 12/01/18 09:00 12/03/18 08:32 Miralax PO 17 gm DAILY BETHANY Administration Pregabalin 75 mg 11/30/18 21:00 12/03/18 08:48 Lyrica PO 75 mg BID BETHANY Administration Sodium Chloride 10 ml 11/30/18 21:00 12/03/18 08:52 Flush - Normal Saline IVF 10 ml Q12HR BETHANY Administration Tizanidine HCl 2 mg 12/01/18 20:15 12/02/18 04:20 Zanaflex PO 2 mg TID PRN Administration Muscle Spasm Vitamin E 200 units 12/01/18 09:00 12/03/18 09:55 Vitamin E PO Not Given DAILY BETHANY - Exam General Appearance: NAD, awake alert Eye: PERRL, anicteric sclera ENT: normocephalic atraumatic, no oropharyngeal lesions Neck: supple, symmetric, no JVD, no thyromegaly Heart: RRR, no murmur, no gallops, no rubs Respiratory: CTAB, no wheezes, no rales, no ronchi Gastrointestinal: soft, non-tender, non-distended, normal bowel sounds Extremities: no cyanosis, no clubbing, no edema Skin: normal turgor, no lesions Musculoskeletal: normal tone Psychiatric: normal affect, normal behavior Hosp A/P (1) Cauda equina syndrome Code(s): G83.4 - CAUDA EQUINA SYNDROME Status: Acute (2) Proctitis Code(s): K62.89 - OTHER SPECIFIED DISEASES OF ANUS AND RECTUM Status: Acute (3) UTI (urinary tract infection) Status: Acute Qualifiers: Urinary tract infection type: catheter-associated UTI Indwelling urinary catheter type: indwelling urethral catheter (4) Anemia, normocytic normochromic Code(s): D64.9 - ANEMIA, UNSPECIFIED Status: Chronic (5) Dementia Code(s): F03.90 - UNSPECIFIED DEMENTIA WITHOUT BEHAVIORAL DISTURBANCE Status: Chronic (6) Hypothyroidism Code(s): E03.9 - HYPOTHYROIDISM, UNSPECIFIED Status: Chronic (7) Rheumatoid arthritis Code(s): M06.9 - RHEUMATOID ARTHRITIS, UNSPECIFIED Status: Chronic (8) Severe muscle deconditioning Code(s): R29.898 - OT SYMPTOMS AND SIGNS INVOLVING THE MUSCULOSKELETAL SYSTEM Status: Chronic (9) Constipation Code(s): K59.00 - CONSTIPATION, UNSPECIFIED Status: Acute - Plan old records reviewed/req, PT/OT, social insurance specialist 12/01/18- continue meropenam for UTI and follow culture result, neurosurgeon planning to do L5 S1 lumbar laminectomy today, discussed with daughter, home medication reconciled, medication reviewed as above, symptomatic treatment 12/02/18- overall doing well after surgery, stable, continue post operative care and PT/OT as per neurosurgery recommendation, follow on urine culture result, will need to go back to rehab on discharge, medication reviewed as above , symptomatic treatment 12/03/18- DC meropenam, continue diflucan, continue PT/OT and plan for discharge back to rehab eventually.
[2018-12-03] MEDS: Fluconazole In NaCl,Iso-Osm 100 MG in Admixture Fee 1 EACH IVPB SCH (12:52)
[2018-12-03] MEDS: Amitriptyline HCl 25 MG TAB PO SCH (21:59)
[2018-12-04] MEDS: Levothyroxine Sodium 75 MCG TAB PO SCH (05:21)
[2018-12-04] MEDS: CEFAZOLIN 2 GM in Premix Bag 1 BAG IVPB SCH ×3 (05:21→20:16)
[2018-12-04] MEDS: Lidocaine Viscous Sol 2% 15 ml UD Cup SSP SCH ×4 (05:22→20:19)
[2018-12-04 06:27] LABS: #Basophils 0.1 thou/uL (0.0-0.2); #Eosinphils 0.1 thou/uL (0.0-0.7); #Lymphocytes 1.8 thou/uL (1.20-3.40); #Monocytes 1.5 thou/uL (0.11-0.59); #Neutrophils 11.5 thou/uL (1.40-6.50); %Basophils 0.4 % (0.0-1.0); %Eosinophils 0.4 % (0.0-10.0); %Lymphocytes 11.9 % (21.0-51.0); %Monocytes 10.1 % (0.0-10.0); %Neutrophils 77.3 % (42.0-75.0); Hemoglobin 9.6 g/dL (12.0-16.0); Mean Corpuscular HGB CONC 32.8 g/dL (32.0-36.0); Mean Corpuscular Hemoglobin 29.2 pg (27.0-31.0); Mean Corpuscular Volume 89.2 fL (78.0-98.0); Mean Platelet Volume 7.1 fL (7.4-10.4); Platelet Count 247 thou/uL (130-400); RBC Distribution Width 14.1 % (11.5-14.5); Red Blood Cell (RBC) Count 3.27 mill/uL (4.20-5.40); White Blood Cell (WBC) Count 14.9 thou/uL (4.8-10.8)
[2018-12-04 06:58] LABS: Anion Gap 8 mmol/L (10-20); BUN (Urea Nitrogen) 10 mg/dL (9.8-20.1); Calc. Creatinine Clearance 89 mL/min (70-130); Calcium 8.1 mg/dL (7.8-10.44); Carbon Dioxide 30 mmol/L (23-31); Chloride 97 mmol/L (98-107); Estimated GFR-MDRD Greater than 90; Glucose 91 mg/dL (83-110); Sodium 131 mmol/L (136-145)
[2018-12-04] MEDS: Nystatin 500,000 UNITS/5 ML UDCUP PO SCH ×4 (09:53→21:29)
[2018-12-04] MEDS: Cyanocobalamin (Vitamin B-12) 1,000 MCG TAB PO SCH (09:53)
[2018-12-04] MEDS: Pregabalin 75 MG CAP PO SCH ×2 (09:54→20:14)
[2018-12-04] MEDS: Lisinopril 20 MG TAB PO SCH (09:55)
[2018-12-04] MEDS: Liothyronine Sodium 5 MCG TAB PO SCH (09:55)
[2018-12-04] MEDS: Multivitamin W/ Minerals 1 TAB PO SCH (09:55)
[2018-12-04] MEDS: Amlodipine 5 MG TAB PO SCH (09:58)
[2018-12-04] MEDS: Polyethylene Glycol 3350 17 GM Packet PO SCH (09:59)
[2018-12-04] MEDS: DULoxetine 60 MG CAP PO SCH ×2 (10:02→20:14)
--- NOTE | 2018-12-04 10:30 | PRG ---
DATE OF SERVICE: 12/04/2018 Ms. Hightower is now postoperative day #3 from L1-S1 laminectomy for cauda equina syndrome that had resulted in bilateral lower extremity weakness, sensory abnormality, pain, and saddle anesthesia. She remains with a Frazier catheter in place, but does feel the tug of the Frazier catheter. She has generalized weakness throughout multiple lower extremity myotomes, not surprising, but this does appear to be improved compared to before surgery. She has a very high risk for DVT given her prolonged immobilization. I should note an ultrasound of the legs 2 days ago was negative for DVT. We will start a prophylactic dose of Lovenox today from a medication standpoint. She remains on Ancef and Diflucan. She has sacral decubiti, but her wound is healing well. Wound Care is seeing her for her sacral decubiti. She has stood with physical therapy. She needs to mobilize more and simply she has Vangie in her urine, and from a laboratory assessment, she has improved leukocytosis down to at 14.9, which had a high point of 19.4. Her hemoglobin is 9.6, but she does have a neutrophil shift with bandemia, not surprising given recent surgery and active decubiti. I should note her pre-albumin was very low on December 01, indicative of malnutrition. Her level is 8. We are bolstering her nutritional status with shakes and supplementals, and her nutrition team is following along in that regard. We need this to be increased in order to heal frankly. Job ID: [id number]
[2018-12-04] MEDS: Fluconazole In NaCl,Iso-Osm 100 MG in Admixture Fee 1 EACH IVPB SCH (12:16)
--- NOTE | 2018-12-04 13:13 | ULT ---
BILATERAL LOWER EXTREMITY VENOUS DUPLEX EXAM: INDICATIONS: Lower extremity pain and edema. Impaired mobility. TECHNIQUE: The veins of both lower extremities were evaluated with ultrasound Doppler, color Doppler with spectr al analysis and compression studies. FINDINGS: The film is somewhat limited due to immobility. The left posterior tibial vein is not well evaluated mid and distally. However, the veins evaluated above the knee all show normal blood flow and compression. There is no e vidence of DVT identified in either lower extremity. IMPRESSION: No evidence of deep venous thrombosis identified. POS: OFF
--- NOTE | 2018-12-04 14:12 | PDOC.HOSPP ---
- Subjective Encounter Date: 12/04/18 Encounter Time: 14:10 Subjective: feels great - Objective Vital Signs & Weight: Vital Signs (12 hours) Temp Pulse Resp BP BP BP Pulse Ox 12/04/18 10:48 98.7 F 100 16 147/79 H 92 L 12/04/18 09:58 93 132/67 12/04/18 09:55 146/70 H 12/04/18 07:38 98.5 F 93 18 132/67 93 L 12/04/18 03:34 97.7 F 90 18 109/61 91 L Weight Admit Weight 145 lb 6.4 oz Weight 145 lb 6.4 oz I&O: 12/03/18 12/04/18 12/05/18 06:59 06:59 06:59 Intake Total 1810 1270 Output Total 1775 1150 Balance 35 120 Result Diagrams: 12/04/18 06:14 12/04/18 06:14 Radiology Reviewed by me: Yes EKG Reviewed by me: Yes Hospitalist ROS - Medication Medications: Active Medications Generic Name Dose Route Start Last Admin Trade Name Freq PRN Reason Stop Dose Admin Acetaminophen 650 mg 11/30/18 11:49 12/03/18 21:57 Tylenol PO 650 mg Q4H PRN Administration Headache/Fever/Mild Pain (1-3) Hydrocodone Bitart/Acetaminophen 1 tab 11/30/18 11:49 12/02/18 19:18 [place] 5/325 PO 1 tab Q4H PRN Administration Moderate Pain (4-6) Amitriptyline HCl 25 mg 12/01/18 21:00 12/03/18 21:59 Elavil PO 25 mg HS BETHANY Administration Amlodipine Besylate 2.5 mg 12/01/18 09:00 12/04/18 09:58 Norvasc PO 2.5 mg DAILY BETHANY Administration Cyanocobalamin 1,000 mcg 12/01/18 09:00 12/04/18 09:53 Vitamin B-12 PO 1,000 mcg DAILY BETHANY Administration Duloxetine HCl 60 mg 11/30/18 21:00 12/04/18 10:02 Cymbalta PO 60 mg BID BETHANY Administration Cefazolin Sodium/Dextrose 2 gm 50 mls @ 100 mls/hr 12/02/18 12:00 12/04/18 12 :16 / Device IVPB 50 mls 0400,1200,2000 BETHANY Administration Fluconazole/Sodium Chloride 50 mls @ 50 mls/hr 12/02/18 12:00 12/04/18 12:16 100 mg/ Miscellaneous IVPB 50 mls Medication 1200 BETHANY Administration Iron/Minerals/Multivitamins 1 tab 12/01/18 09:00 12/04/18 09:55 Theragran M PO 1 tab DAILY BETHANY Administration Levothyroxine Sodium 75 mcg 12/01/18 06:00 12/04/18 05:21 Synthroid PO 75 mcg 0600 BETHANY Administration Lidocaine HCl 5 ml 12/01/18 11:30 12/04/18 12:16 Xylocaine 2% Viscous SSP Not Given ACHS BETHANY Liothyronine Sodium 5 mcg 12/01/18 09:00 12/04/18 09:55 Cytomel PO 5 mcg DAILY BETHANY Administration Lisinopril 40 mg 12/01/18 09:00 12/04/18 09:55 Zestril PO 40 mg DAILY BETHANY Administration Nystatin 500,000 units 12/01/18 09:00 12/04/18 12:16 Mycostatin PO 500,000 units QID BETHANY Administration Pantoprazole Sodium 40 mg 12/01/18 09:00 12/04/18 09:53 Protonix PO 40 mg DAILY BETHANY Administration Polyethylene Glycol 17 gm 12/01/18 09:00 12/04/18 09:59 Miralax PO 17 gm DAILY BETHANY Administration Pregabalin 75 mg 11/30/18 21:00 12/04/18 09:54 Lyrica PO 75 mg BID BETHANY Administration Sodium Chloride 10 ml 11/30/18 21:00 12/04/18 09:57 Flush - Normal Saline IVF Not Given Q12HR [facility] Tizanidine HCl 2 mg 12/01/18 20:15 12/02/18 04:20 Zanaflex PO 2 mg TID PRN Administration Muscle Spasm Vitamin E 200 units 12/01/18 09:00 12/04/18 09:57 Vitamin E PO Not Given DAILY BETHANY - Exam General Appearance: NAD, awake alert, ill appearing Neck: supple, symmetric, no JVD, no thyromegaly, no lymphadenopathy, no carotid bruit, JVD Heart: RRR, no murmur, no gallops, no rubs, normal peripheral pulses, irregular , diminshed peripheral pulses, murmur present, II/IV, III/IV Respiratory: CTAB, no wheezes, no rales, no ronchi, normal chest expansion, no tachypnea, normal percussion, rales, rhonchi, tachypneic, wheezes Gastrointestinal: soft, non-tender, non-distended, normal bowel sounds, no palpable masses (spoke to neuro team, as WBC elevated, ID ws consulted.), no hepatomegaly, no splenomegaly, no bruit, no guarding, no rigidity, tender to palpation, distended, diminished bowl sounds, voluntary guarding Hosp A/P (1) Cauda equina syndrome Code(s): G83.4 - CAUDA EQUINA SYNDROME Status: Acute (2) Anemia, normocytic normochromic Code(s): D64.9 - ANEMIA, UNSPECIFIED Status: Chronic - Plan plan discussed w/ family (Cdiff and ID consulted.)
--- NOTE | 2018-12-04 16:02 | PQF ---
CLINICAL DOCUMENTATION IMPROVEMENT CLARIFICATION FORM: ICD-10 Updated PLEASE DO AN ADDENDUM TO THE PROGRESS NOTE WITH ANY DOCUMENTATION UPDATES OR ADDITIONS AND CARRY THROUGH TO DC SUMMARY. THANK YOU. DATE: 12/04/18 ATTN: DR. PRINCE Please exercise your independent, professional judgment in responding to the clarification form. Clinical indicators are provided on the bottom of this form for your review Please check appropriate box(s): [ ] Acute blood loss anemia [ ] Post-op anemia related to acute blood loss [ ] Anemia: [ ] Aplastic [ ] Nutritional [ ] Drug induced (specify) ___ [ ] Hemolytic [ ] Hereditary [ ] Acquired [ ] Autoimmune [ ] Non-autoimmune [ ] Enzyme disorder [ ] Chronic Anemia: [ ] Blood loss [ ] Hemolytic [ ] Simple [ ] Due to Vitamin B12 Deficiency [ ] Other [ ] Other diagnosis [x ] Unable to determine In addition, please specify: Present on Admission (POA): [ ] Yes [ ] No [ ] Unable to determine For continuity of documentation, please document condition throughout progress notes and discharge summary. Thank You. CLINICAL INDICATORS - SIGNS / SYMPTOMS / LABS HGN 11/30: 8.3 HGN 12/01: 11.2 HGN 12/03: 9.2 RISKS: LUMBAR SURGERY 12/02 TREATMENT: SERIAL LABS BLOOD TRANSFUSIONS X2 (12/01) (This form is maintained as a part of the permanent medical record) 2014 [employer], [employer]. All Rights Reserved [email or web address] [email or web address] Office: [phone] [facility]ASS[facility]T HOSPITALRianna
--- NOTE | 2018-12-04 16:21 | CT ---
CTA CHEST WITH CONTRAST: 12/04/18 Axial tomograms are obtained following pulmonary angio protocol with multiplanar reconstruction and 3 D postprocessing. INDICATIONS: Shortness of breath. Assess for pulmonary embolus. FINDINGS: The pulmonary arteries show adequate opacification. No evidence of pulmonary embolus identified. Lungs show small bilateral pleural effusions. There is cardiomegaly and mild vascular congestion. The re are diffuse hazy alveolar opacities seen throughout both lungs, most prominent in the upper lobes. This may represent edema. Inflammatory infiltrate cannot be excluded radiographically. Review of the mediastinum shows nonspecific mediastinal and hilar adenopathy slightly more prominent in the right hilar region. A small fixed sliding diaphragmatic hernia in the lower chest. Upper abdom en unremarkable. IMPRESSION: 1. No evidence of pulmonary embolus. 2. Small bilateral pleural effusions. 3. There is parenchymal stranding and interstitial prominence which appears chronic. Diffuse jony und glass hazy opacity throughout both lungs may represent edema or infiltrate. 4. Mediastinal and hilar adenopathy, more prominent in the right hilar region. POS: OFF
[2018-12-04] MEDS: Acetaminophen 325 MG TAB PO PRN (17:07)
[2018-12-04 17:39] LABS: Bilirubin Negative (Negative); Blood, Urine Trace (Negative); Clarity Clear (Clear); Glucose, Urine (Dipstick) Normal (Negative); Leukocyte 250 Leu/uL (Negative); Nitrite Negative (Negative); Protein, Urine (Dipstick) 20 mg/dL (Neg-Trace); RBC/HPF 21-50 HPF (0-3); Squamous Epithelial 0-3 HPF (0-3); Urobilinogen Normal mg/dL (Less than 2); WBC/HPF 21-50 HPF (0-3)
[2018-12-04 17:40] LABS: Bacteria/HPF 1+ HPF (None Seen)
[2018-12-04 17:47] LABS: Yeast-Budding 2+ HPF (None Seen)
[2018-12-04 17:49] LABS: Urine Culture Reflex Yes Yes
[2018-12-04] MEDS: Enoxaparin Sodium 30 MG/0.3 ML SYRINGE SC SCH (20:14)
[2018-12-04] MEDS: Amitriptyline HCl 25 MG TAB PO SCH (20:16)
[2018-12-04] MEDS ORDERED: ISOVUE-370 76%-LOCM 1 ML ONE (20:44)
--- NOTE | 2018-12-04 21:37 | CON ---
DATE OF CONSULTATION: 12/04/2018 REASON FOR CONSULTATION: Possible sepsis, UTI. HISTORY OF PRESENT ILLNESS: This is a 78-year-old, who has a history of Lewy body dementia, recurrent UTI, rheumatoid arthritis, polymyalgia rheumatica, whom I had seen at the rehab. At that time, we ordered a CT of abdomen and pelvis, which was consistent with proctitis and colonic fecal retention. MRI showed multilevel degenerative spine disease with cauda equina syndrome. The exam at this time showed BP of 130/78, pulse 72, respirations 18, O2 saturation 100, and temperature 98.6. She is alert, chronically ill appearing, but in no distress. Pertinent findings in the physical examination, the patient is still moving all four limbs. Some sensory changes noted. White cell count 16.8, hemoglobin 8.7, and platelets 207. Sodium 130 and creatinine 0.66. Currently, Ms. Hightower is awake. She does not appear in distress. She replies to questions, seems to be making sense. She knows she is in the hospital. Denies any headaches. No shortness of breath. No abdominal pain. She is voiding with an indwelling Frazier catheter due to the cauda equina and neurogenic bladder. PAST MEDICAL HISTORY: Lewy body dementia, urinary tract colonization, rheumatoid arthritis, polymyalgia rheumatica, hypertension, osteoarthritis, and GERD. ALLERGIES: NONE. FAMILY HISTORY: Not available. SOCIAL HISTORY: Never smoker. CURRENT MEDICATIONS: 1. Tylenol. 2. [place]. 3. DuoNeb. 4. Elavil. 5. Norvasc. 6. Dulcolax. 7. Cefazolin. 8. Cymbalta. 9. Fluconazole. PHYSICAL EXAMINATION: VITAL SIGNS: T-max 100.9, currently 98.5; blood pressure 130/50, pulse 103, respirations 18, and O2 saturation 93. SKIN: Area of pressure ulceration in the gluteal region with unstageable necrotic area on the left side, quite a bit of erythema and hemorrhagic transformation, and a stage II round ulcer in the right gluteal region skin. Followup visualization of this lesion 2 days later shows improvement. She has no lymphadenopathy. GENERAL: She is awake, follows commands, and has pretty decent cognitive function. HEENT: Ocular movements conjugate. Oral cavity dry. NECK: Supple. LUNGS: With bibasilar inspiratory crackles heard up to 1/3 of each hemithorax. HEART: S1 and S2. Regular rate without murmurs. ABDOMEN: Soft, not distended or tender. No ascites. No bladder distention. GENITOURINARY: She has a Frazier catheter inserted. NEUROLOGIC: I could not see movements in the lower extremities. The upper extremities move well. She is awake, follows commands, and memory somewhat impaired. LABORATORY DATA: White cell count is at 14.9, hemoglobin 9.6, and platelets 247. Sodium 131 and creatinine 0.54. Microbiology with a presumptive Vangie albicans from a few weeks ago, she had E coli, which was broadly sensitive. IMAGING: There is a chest CT angio and I was able to look at this study, but we do not have formal reading of the images yet. She does have a lot of infiltrates in both lung barraza with subsegmental infiltrates. There are some areas of bronchiectasis noted in the lung barraza. She may have areas of pulmonary embolism, but we will wait for the final interpretation from the radiologist. ASSESSMENT AND DISCUSSION: Lewy body dementia, weakness, urinary tract colonization with chronic indwelling Frazier catheter, proctitis with fecal retention, constipation, cauda equina syndrome, and abnormalities on lung examination noted on the CT scan, pending a final interpretation by the radiologist. Her last chest x-ray is from November 29 and it did not show any acute cardiopulmonary disease. So, it looks like the lung findings are responsible for the patient's neutrophilia most likely and we will wait for the final interpretation of radiologist, but I do not think the urinary tract findings are responsible for her clinical changes. Job ID: [id number] [facility]
[2018-12-05 04:20] LABS: #Basophils 0.1 thou/uL (0.0-0.2); #Eosinphils 0.3 thou/uL (0.0-0.7); #Lymphocytes 1.5 thou/uL (1.20-3.40); #Monocytes 1.6 thou/uL (0.11-0.59); #Neutrophils 10.5 thou/uL (1.40-6.50); %Basophils 0.4 % (0.0-1.0); %Eosinophils 2.4 % (0.0-10.0); %Lymphocytes 10.9 % (21.0-51.0); %Monocytes 11.3 % (0.0-10.0); Hemoglobin 9.9 g/dL (12.0-16.0); Mean Corpuscular HGB CONC 32.4 g/dL (32.0-36.0); Mean Corpuscular Hemoglobin 28.8 pg (27.0-31.0); Mean Corpuscular Volume 88.9 fL (78.0-98.0); Mean Platelet Volume 7.2 fL (7.4-10.4); Platelet Count 286 thou/uL (130-400); RBC Distribution Width 13.9 % (11.5-14.5); Red Blood Cell (RBC) Count 3.43 mill/uL (4.20-5.40)
[2018-12-05 04:36] LABS: ALT (SGPT) 11 U/L (8-55); AST (SGOT) 30 U/L (5-34); Albumin 2.5 g/dL (3.4-4.8); Alkaline Phosphatase 76 U/L (40-110); Anion Gap 9 mmol/L (10-20); BUN (Urea Nitrogen) 9 mg/dL (9.8-20.1); Bilirubin, Total 0.5 mg/dL (0.2-1.2); Calc. Creatinine Clearance 95 mL/min (70-130); Calcium 8.3 mg/dL (7.8-10.44); Carbon Dioxide 28 mmol/L (23-31); Chloride 97 mmol/L (98-107); Estimated GFR-MDRD Greater than 90; Globulin 3.1 g/dL (2.4-3.5); Glucose 99 mg/dL (83-110); Potassium 4.2 mmol/L (3.5-5.1); Protein, Total 5.6 g/dL (6.0-8.3); Sodium 130 mmol/L (136-145)
[2018-12-05] MEDS: CEFAZOLIN 2 GM in Premix Bag 1 BAG IVPB SCH ×3 (05:16→21:28)
[2018-12-05] MEDS: Levothyroxine Sodium 75 MCG TAB PO SCH (05:16)
[2018-12-05] MEDS: Lidocaine Viscous Sol 2% 15 ml UD Cup SSP SCH ×4 (06:07→21:28)
[2018-12-05] MEDS: Nystatin 500,000 UNITS/5 ML UDCUP PO SCH ×4 (08:53→21:27)
[2018-12-05] MEDS: Pregabalin 75 MG CAP PO SCH ×2 (08:58→21:27)
[2018-12-05] MEDS: DULoxetine 60 MG CAP PO SCH ×2 (08:58→21:26)
[2018-12-05] MEDS: Liothyronine Sodium 5 MCG TAB PO SCH (08:58)
[2018-12-05] MEDS: Amlodipine 5 MG TAB PO SCH (09:00)
[2018-12-05] MEDS: Cyanocobalamin (Vitamin B-12) 1,000 MCG TAB PO SCH (09:00)
[2018-12-05] MEDS: Multivitamin W/ Minerals 1 TAB PO SCH (09:00)
[2018-12-05] MEDS: Lisinopril 20 MG TAB PO SCH (09:09)
[2018-12-05] MEDS: Polyethylene Glycol 3350 17 GM Packet PO SCH (09:11)
--- NOTE | 2018-12-05 12:00 | PDOC.HOSPP ---
- Subjective Encounter Date: 12/05/18 Encounter Time: 11:59 Subjective: feels better.no new complaints. - Objective Vital Signs & Weight: Vital Signs (12 hours) Temp Pulse Resp BP BP BP Pulse Ox 12/05/18 09:09 127/64 12/05/18 09:00 98 12/05/18 07:56 98.9 F 98 18 127/64 93 L 12/05/18 04:00 98.4 F 91 14 151/72 H 94 L 12/05/18 03:43 98.4 F 91 14 151/72 H 94 L Weight Admit Weight 145 lb 6.4 oz Weight 145 lb 6.4 oz I&O: 12/04/18 12/05/18 12/06/18 06:59 06:59 06:59 Intake Total 1270 820 Output Total 1150 850 Balance 120 -30 Result Diagrams: 12/05/18 03:54 12/05/18 03:54 Hospitalist ROS - Medication Medications: Active Medications Generic Name Dose Route Start Last Admin Trade Name Freq PRN Reason Stop Dose Admin Acetaminophen 650 mg 11/30/18 11:49 12/04/18 17:07 Tylenol PO 650 mg Q4H PRN Administration Headache/Fever/Mild Pain (1-3) Hydrocodone Bitart/Acetaminophen 1 tab 11/30/18 11:49 12/02/18 19:18 [place] 5/325 PO 1 tab Q4H PRN Administration Moderate Pain (4-6) Amitriptyline HCl 25 mg 12/01/18 21:00 12/04/18 20:16 Elavil PO 25 mg HS BETHANY Administration Amlodipine Besylate 2.5 mg 12/01/18 09:00 12/05/18 09:00 Norvasc PO 2.5 mg DAILY BETHANY Administration Cyanocobalamin 1,000 mcg 12/01/18 09:00 12/05/18 09:00 Vitamin B-12 PO 1,000 mcg DAILY BETHANY Administration Duloxetine HCl 60 mg 11/30/18 21:00 12/05/18 08:58 Cymbalta PO 60 mg BID BETHANY Administration Enoxaparin Sodium 30 mg 12/04/18 21:00 12/04/18 20:14 Lovenox SC 30 mg 2100 BETHANY Administration Cefazolin Sodium/Dextrose 2 gm 50 mls @ 100 mls/hr 12/02/18 12:00 10/03/19 05 :16 / Device IVPB 50 mls 0400,1200,2000 BETHANY Administration Fluconazole/Sodium Chloride 50 mls @ 50 mls/hr 12/02/18 12:00 12/04/18 12:16 100 mg/ Miscellaneous IVPB 50 mls Medication 1200 BETHANY Administration Iron/Minerals/Multivitamins 1 tab 12/01/18 09:00 12/05/18 09:00 Theragran M PO 1 tab DAILY BETHANY Administration Levothyroxine Sodium 75 mcg 12/01/18 06:00 12/05/18 05:16 Synthroid PO 75 mcg 0600 BETHANY Administration Lidocaine HCl 5 ml 12/01/18 11:30 12/05/18 06:07 Xylocaine 2% Viscous SSP Not Given ACHS BETHANY Liothyronine Sodium 5 mcg 12/01/18 09:00 12/05/18 08:58 Cytomel PO 5 mcg DAILY BETHANY Administration Lisinopril 40 mg 12/01/18 09:00 12/05/18 09:09 Zestril PO 40 mg DAILY BETHANY Administration Nystatin 500,000 units 12/01/18 09:00 12/05/18 08:53 Mycostatin PO 500,000 units QID BETHANY Administration Pantoprazole Sodium 40 mg 12/01/18 09:00 12/05/18 09:00 Protonix PO 40 mg DAILY BETHANY Administration Polyethylene Glycol 17 gm 12/01/18 09:00 12/05/18 09:11 Miralax PO 17 gm DAILY BETHANY Administration Pregabalin 75 mg 11/30/18 21:00 12/05/18 08:58 Lyrica PO 75 mg BID BETHANY Administration Sodium Chloride 10 ml 11/30/18 21:00 12/05/18 09:11 Flush - Normal Saline IVF 10 ml Q12HR BETHANY Administration Tizanidine HCl 2 mg 12/01/18 20:15 12/02/18 04:20 Zanaflex PO 2 mg TID PRN Administration Muscle Spasm Vitamin E 200 units 12/01/18 09:00 12/05/18 09:11 Vitamin E PO 200 units DAILY BETHANY Administration - Exam General Appearance: NAD, awake alert, ill appearing Eye: PERRL, anicteric sclera, scleral icterus ENT: normocephalic atraumatic, no oropharyngeal lesions, moist mucosa, dry oral mucosa Neck: supple, symmetric, no JVD, no thyromegaly, no lymphadenopathy, no carotid bruit, JVD Heart: RRR, no murmur, no gallops, no rubs, normal peripheral pulses, irregular , diminshed peripheral pulses, murmur present, II/IV, III/IV Respiratory: CTAB, no wheezes, no rales, no ronchi, normal chest expansion, no tachypnea, normal percussion, rales, rhonchi, tachypneic, wheezes Gastrointestinal: soft, non-tender, non-distended, normal bowel sounds, no palpable masses, no hepatomegaly, no splenomegaly, no bruit, no guarding, no rigidity, tender to palpation, distended, diminished bowl sounds, voluntary guarding Extremities: no cyanosis, no clubbing, no edema, 1+ LE edema, 2+ LE edema, clubbing Hosp A/P (1) Cauda equina syndrome Code(s): G83.4 - CAUDA EQUINA SYNDROME Status: Acute (2) Anemia, normocytic normochromic Code(s): D64.9 - ANEMIA, UNSPECIFIED Status: Chronic - Plan apreciate ID input, await placement, rehab vs LTAC
[2018-12-05 14:34] LABS: #Basophils 0.1 thou/uL (0.0-0.2); #Eosinphils 0.1 thou/uL (0.0-0.7); #Lymphocytes 1.5 thou/uL (1.20-3.40); #Monocytes 1.3 thou/uL (0.11-0.59); #Neutrophils 12.6 thou/uL (1.40-6.50); %Basophils 0.4 % (0.0-1.0); %Eosinophils 0.6 % (0.0-10.0); %Lymphocytes 9.8 % (21.0-51.0); %Monocytes 8.6 % (0.0-10.0); %Neutrophils 80.7 % (42.0-75.0); Hemoglobin 9.7 g/dL (12.0-16.0); Mean Corpuscular HGB CONC 32.6 g/dL (32.0-36.0); Mean Corpuscular Hemoglobin 28.7 pg (27.0-31.0); Mean Corpuscular Volume 88.1 fL (78.0-98.0); Mean Platelet Volume 6.8 fL (7.4-10.4); Platelet Count 330 thou/uL (130-400); RBC Distribution Width 13.9 % (11.5-14.5); Red Blood Cell (RBC) Count 3.39 mill/uL (4.20-5.40); White Blood Cell (WBC) Count 15.6 thou/uL (4.8-10.8)
[2018-12-05] MEDS ORDERED: Fluconazole In NaCl,Iso-Osm 100 MG in Admixture Fee 1 EACH IVPB SCH (16:00)
--- NOTE | 2018-12-05 16:50 | PRG ---
DATE OF SERVICE: 12/05/2018 This is Iggy Cai PA-C dictating a report for Oskar France MD. SUBJECTIVE: Ms. Hightower is now postoperative day #4, having undergone multilevel lumbar laminectomies for profound right lower extremity weakness and essentially cauda equina syndrome. The patient is in good spirits today. She appears comfortable and is appropriate during the exam. She remains with mild weakness into the bilateral lower extremities, but with greater weakness on the right than the left. She has severe weakness into the right dorsiflexion, plantar flexion, which has remained stable. She does state, however, she is able to stand with physical therapy, but she states she did not have yesterday and was unable to really work with them. She does have stage II, if not, stage III decubitus ulcers into the bilateral buttock regions, but these appeared to be somewhat improving in regard to healing today. I have examined her incision and it is clean, dry, intact and healing well. I have also helped the nurse to re-dress the incision and I have asked that she continued to be very mindful of keeping the incision clean secondary to the close proximity of her decubitus ulcers. I also ordered a UA, which appears to be positive for yeast, but she remains on fluconazole and nystatin. We will defer further antibiotics to Dr. Vyas with Infectious Disease. Given that she is at high risk for deep venous thrombosis, we have also placed her on low-dose Lovenox. The main issue now is continued rehab to help regain any type of function postoperatively. She is ready for discharge back to [facility] when she is met this criteria, but from Neurosurgical standpoint, the patient remains stable. Job ID: [id number]
[2018-12-05] MEDS: Acetaminophen 325 MG TAB PO PRN (21:27)
[2018-12-05] MEDS: Amitriptyline HCl 25 MG TAB PO SCH (21:27)
[2018-12-05] MEDS: Enoxaparin Sodium 30 MG/0.3 ML SYRINGE SC SCH (21:28)
[2018-12-06] MEDS: CEFAZOLIN 2 GM in Premix Bag 1 BAG IVPB SCH ×2 (05:20→16:06)
[2018-12-06] MEDS: Levothyroxine Sodium 75 MCG TAB PO SCH (05:28)
[2018-12-06] MEDS: Lidocaine Viscous Sol 2% 15 ml UD Cup SSP SCH ×4 (06:36→20:38)
[2018-12-06] MEDS: Pregabalin 75 MG CAP PO SCH ×2 (09:31→20:38)
[2018-12-06] MEDS: DULoxetine 60 MG CAP PO SCH ×2 (09:31→20:38)
[2018-12-06] MEDS: Liothyronine Sodium 5 MCG TAB PO SCH (09:31)
[2018-12-06] MEDS: Amlodipine 5 MG TAB PO SCH (09:32)
[2018-12-06] MEDS: Nystatin 500,000 UNITS/5 ML UDCUP PO SCH ×4 (09:32→20:38)
[2018-12-06] MEDS: Lisinopril 20 MG TAB PO SCH (09:33)
[2018-12-06] MEDS: Cyanocobalamin (Vitamin B-12) 1,000 MCG TAB PO SCH (09:33)
[2018-12-06] MEDS: Multivitamin W/ Minerals 1 TAB PO SCH (09:33)
[2018-12-06] MEDS: Polyethylene Glycol 3350 17 GM Packet PO SCH (09:33)
--- NOTE | 2018-12-06 10:35 | PRG ---
DATE OF SERVICE: 12/06/2018 SUBJECTIVE: The patient is seen and examined at the bedside. She feels weak and tired. There was no any unexpected events overnight. OBJECTIVE: VITAL SIGNS: Blood pressure is 130/70, pulse is 89, respirations 20, and O2 saturation is 98% on 2 L by nasal cannula, temperature is 98.4. Supine blood pressure is 130/70. SKIN: [place]. HEENT: Sclerae are nonicteric. Pupils are responding to light properly. Conjunctivae palish. Oral mucosa is slightly dry. NECK: Supple. LUNGS: Bilateral crackles and rales present. HEART: S1, S2 normal. No S3. No S4. ABDOMEN: Soft, nontender, nondistended. EXTREMITIES: No clubbing, cyanosis. 1+ peripheral edema on both lower extremities. NEUROLOGIC: She follows my commands, although she has some dementia and her sensation in both lower extremities diminished and motor function in her both lower extremities is significantly changed. She has weakness bilaterally in both lower extremities. LABORATORY DATA: None today. Microbiology; urine culture is growing yeast species 50,000 to 75,000 colonies. IMPRESSION: 1. Urinary tract colonization with chronic indwelling Frazier catheter. 2. Lewy body dementia. 3. Bilateral pulmonary infiltrates with adenopathy. We will get Dr. Panchal's opinion. She will continue on O2. 4. Cauda equina syndrome, status post laminectomy, multilevel, cleared by Neurosurgery for rehab return. 5. Severe muscle deconditioning. 6. History of rheumatoid arthritis. 7. Hypothyroidism. 8. Constipation. 9. Normocytic and normochromic anemia. PLAN: We will hold on the transfer back to the rehab at this point. Awaiting Dr. Panchal's recommendation regarding her pulmonary changes. We will continue DVT prophylaxis as recommended by Neurosurgery and continue her current regimen. Job ID: [id number]
[2018-12-06] MEDS: Fluconazole In NaCl,Iso-Osm 100 MG in Admixture Fee 1 EACH IVPB SCH (10:49)
--- NOTE | 2018-12-06 11:51 | ULT ---
ULTRASOUND DOPPLER DUPLEX VENOUS BILATERAL LOWER EXTREMITIES: DATE: 12/06/2018 HISTORY: 78-year-old female with decreased mobility, increasing risk for DVT. TECHNIQUE: Grayscale, color-flow, and spectral analysis, of major veins of bilateral lower extremities. FINDINGS: There is demonstration of blood flow with normal compressibility, of the bilateral common femoral, pr ofunda femoral, greater saphenous, femoral, popliteal, and posterior tibial, veins. Questionable minimal soft tissue edema. IMPRESSION: 1. No deep venous thrombosis of bilateral lower extremities. 2. Minimal bilateral lower extremity soft tissue edema.
--- NOTE | 2018-12-06 13:06 | PRG ---
DATE OF SERVICE: 12/06/2018 I saw Patricia Hightower in our hospital room this morning. She is treated with a long segment laminectomy for cauda equina syndrome and is now slowly recovering in the hospital. Her vitals have been stable over the last 24 hours with the exception of a T-max of 100.6 degrees Fahrenheit. We will watch the temperature closely. Other vitals have been stable. I do not find any new deficits in the lower extremities, but there is some significant weakness and lack of sacral sensation. She has a sacral decubitus and needs dressing as well. Ms. Hightower would benefit from [facility]cc or inpatient rehabilitation placement, transfer can be made at any time the medical team deems her safe. Job ID: [id number]
[2018-12-06] MEDS: Azithromycin 500 MG in Sodium Chloride 0.9% 250 ML 250 ML IVPB SCH (14:01)
--- NOTE | 2018-12-06 15:02 | PRG ---
DATE OF SERVICE: 12/06/2018 SUBJECTIVE: The patient does not appear in distress, a little bit tired. No respiratory symptoms. No abdominal pain. OBJECTIVE: VITAL SIGNS: T-max 100.6, is now 98.4, blood pressure 130/70, pulse 89, respirations 20, and O2 saturation 98%. NECK: Supple. LUNGS: Symmetric air entry with inspiratory crackles on both sides up to almost half of right and left lung barraza. HEART: S1 and S2, regular rate. ABDOMEN: Soft, nondistended. ASSESSMENT AND DISCUSSION: Lewy body dementia, chronic indwelling Frazier catheterization with urinary colonization, proctitis with fecal retention, cauda equina syndrome with recent intervention, and abnormal lung findings with diffuse bilateral pneumonitis, probably infectious in nature versus a noninfectious cause of pulmonary infiltrates including pulmonary edema, noncardiogenic versus cryptogenic organizing pneumonia, other forms of idiopathic pneumonitis. We will switch her to Rocephin and azithromycin. Submit antigen tests for any acquired pathogens. Again, the urinary tract appears to be less likely as the culprit here. Discontinue Diflucan. Job ID: [id number]
[2018-12-06] MEDS: cefTRIAXone\\ROCEPHIN 2 GM in Sodium Chloride 0.9% 100 ML IVPB SCH (15:53)
[2018-12-06] MEDS: Acetaminophen 325 MG TAB PO PRN (15:53)
[2018-12-06] MEDS: Enoxaparin Sodium 30 MG/0.3 ML SYRINGE SC SCH (20:37)
[2018-12-06] MEDS: Amitriptyline HCl 25 MG TAB PO SCH (20:38)
--- NOTE | 2018-12-06 22:59 | CON ---
DATE OF CONSULTATION: 12/06/2018 HISTORY OF PRESENT ILLNESS: Patricia Hightower is a 78-year-old female. She has been in the hospital for several days. She has a history of dementia and rheumatoid arthritis. I was consulted because of an abnormal CT of her chest. Two days ago, she had a CT pulmonary angiogram. She has small bilateral effusions. Alveolar infiltrate seen bilaterally, more infiltrates in the upper than in the lower lobes. She has an increase in interstitial markings diffusely. She has no respiratory complaints today. PAST MEDICAL HISTORY: Remarkable for 1. Dementia. 2. Rheumatoid arthritis. 3. Polymyalgia rheumatica. 4. Hypertension. 5. Reflux disease. 6. Degenerative arthritis. 7. Deconditioning. SOCIAL HISTORY: She is not a smoker or drinker. FAMILY HISTORY: Negative for lung disease in early age. MEDICATIONS: Have been reviewed. REVIEW OF SYSTEMS: 10 point review of systems completed, otherwise negative. PHYSICAL EXAMINATION: VITAL SIGNS: She is afebrile. Heart rate is 87, respiratory rate is 20, oximetry is 97% on room air, blood pressure 121/65. HEENT: Pupils are equal. Sclerae are anicteric. Her extraocular movements appear intact. NECK: Supple. No lymphadenopathy. GENERAL: Surprisingly with her diagnosis of dementia, she is oriented to person , place actually answered questions fairly quickly. LUNGS: Remarkable for bibasilar crackles. HEART: Regular rhythm, no S3. ABDOMEN: Soft and nontender. EXTREMITIES: Without clubbing, cyanosis, or edema. IMAGING: CT has been reviewed. IMPRESSION: Diffuse infiltrates that are patchy on chest x-ray. Radiographic images are not consistent with congestive heart failure. She certainly could have adult respiratory distress syndrome/noncardiogenic edema associated with infectious process. She could have rheumatoid interstitial lung disease. Differential is broad, but at this point in time, I think continuing current antimicrobial therapy per Dr. Vyas and then followup imaging in 4 to 6 weeks is the best option. This is a 50 minute consult, with greater than 50% of time spent on unit coordinating care. Job ID: [id number] [facility]
[2018-12-07] MEDS: Levothyroxine Sodium 75 MCG TAB PO SCH (05:13)
[2018-12-07] MEDS: Lidocaine Viscous Sol 2% 15 ml UD Cup SSP SCH ×4 (06:24→20:18)
--- NOTE | 2018-12-07 08:25 | PRG ---
DATE OF SERVICE: 12/07/2018 I saw Ms. Hightower in her hospital room this morning. She is moving and barely standing with physical therapy. She feels unsteady on her legs, but wants to do more therapy and I think she would benefit from it. I do not see any fevers recorded in the last 24 hours and her blood pressure has been in the 120s to 140s. Ms. Hightower is getting wound care for her sacral decubitus, so needs someone to inspect the sacral lesion and her incision on a daily basis. She tells me that was not observed yesterday and we will make sure our Neurosurgery Team continues to keep a close eye on a daily basis and we appreciate support from the wound care team and nursing staff as well. Thankfully, Ms. Hightower has some improvement in her neurological function since before surgery, but she could gain even more. Inpatient rehabilitation will be the destination of choice. We will ask our colleagues in the medical team if the 2 urine cultures growing yeast require any treatment. Job ID: [id number]
[2018-12-07] MEDS: Amlodipine 5 MG TAB PO SCH (08:32)
[2018-12-07] MEDS: DULoxetine 60 MG CAP PO SCH ×2 (08:32→20:17)
[2018-12-07] MEDS: Cyanocobalamin (Vitamin B-12) 1,000 MCG TAB PO SCH (08:32)
[2018-12-07] MEDS: Liothyronine Sodium 5 MCG TAB PO SCH (08:33)
[2018-12-07] MEDS: Lisinopril 20 MG TAB PO SCH (08:33)
[2018-12-07] MEDS: Multivitamin W/ Minerals 1 TAB PO SCH (08:37)
[2018-12-07] MEDS: Polyethylene Glycol 3350 17 GM Packet PO SCH (08:37)
[2018-12-07] MEDS: Pregabalin 75 MG CAP PO SCH ×2 (08:37→20:18)
[2018-12-07] MEDS: Nystatin 500,000 UNITS/5 ML UDCUP PO SCH ×4 (11:04→20:18)
[2018-12-07] MEDS: cefTRIAXone\\ROCEPHIN 2 GM in Sodium Chloride 0.9% 100 ML IVPB SCH (12:33)
[2018-12-07] MEDS: Azithromycin 500 MG in Sodium Chloride 0.9% 250 ML 250 ML IVPB SCH (13:18)
--- NOTE | 2018-12-07 13:40 | PRG ---
DATE OF SERVICE: 12/07/2018 SUBJECTIVE: The patient is seen and examined at the bedside. She feels weak and tired. She has some dry cough with some yellowish mucus from [id number]. OBJECTIVE: VITAL SIGNS: Blood pressure is 122/66, pulse is 96, temperature is 98.4, respirations 18, O2 saturation is 99% on 3 L by nasal cannula, should be on 1 L by nasal cannula. HEENT: Her conjunctivae are palish. Oral mucosa is moist. LUNGS: Bilateral rales and occasional wheezes present with some crackles too. HEART: S1 and S2. Somewhat irregular. No S3. No S4. ABDOMEN: Soft, nontender, and nondistended. EXTREMITIES: No clubbing, cyanosis, or edema. NEUROLOGIC: She follows my commands. She has some baseline dementia, but most of the time she is right and that she knows the place and time. There is no any motor deficits. LABORATORY DATA: None today. Microbiology, PCR on respiratory virus is negative. IMPRESSION: 1. Bilateral pulmonary infiltrates with adenopathy of unclear etiology. Orthotist Prosthetist is consulted. He agreed to continue both antibiotics recommended by Dr. Vyas. We will continue both of them. 2. Urinary tract colonization with chronic indwelling Frazier catheter. It is felt that her Vangie albicans is colonization and the Diflucan was stopped. 3. Lewy body dementia, chronic, stable. 4. Cauda equina syndrome, status post laminectomy, multilevel, is getting PT and wound care. 5. Severe muscle deconditioning. 6. History of rheumatoid arthritis. 7. Hypothyroidism. 8. Constipation. 9. Normocytic and normochromic anemia. PLAN: We are going to continue her PT. She does not want to go to the rehab at this point. She would like to wait additional couple of days because of intensity of the physical therapy she is going to get there. We will continue her azithromycin and Rocephin. We will continue PT. We will continue DuoNeb p.r.n. and she will have to have followup with director of clinical applications after the antibiotic treatment is completed. Job ID: [id number]
[2018-12-07 15:39] LABS: Legionella Urinary Ag Negative (Negative); Strep pneumo Urine Ag NEGATIVE (NEGATIVE)
[2018-12-07] MEDS: Acetaminophen 325 MG TAB PO PRN (18:51)
[2018-12-07] MEDS: Enoxaparin Sodium 30 MG/0.3 ML SYRINGE SC SCH (20:18)
[2018-12-07] MEDS: Amitriptyline HCl 25 MG TAB PO SCH (20:18)
[2018-12-08] MEDS: Levothyroxine Sodium 75 MCG TAB PO SCH (05:20)
[2018-12-08] MEDS: Lidocaine Viscous Sol 2% 15 ml UD Cup SSP SCH ×4 (06:53→21:36)
[2018-12-08] MEDS: Nystatin 500,000 UNITS/5 ML UDCUP PO SCH ×4 (08:14→21:36)
[2018-12-08] MEDS: Pregabalin 75 MG CAP PO SCH ×2 (08:15→21:35)
[2018-12-08] MEDS: DULoxetine 60 MG CAP PO SCH ×2 (08:15→21:35)
[2018-12-08] MEDS: Liothyronine Sodium 5 MCG TAB PO SCH (08:15)
[2018-12-08] MEDS: Amlodipine 5 MG TAB PO SCH (08:15)
[2018-12-08] MEDS: Cyanocobalamin (Vitamin B-12) 1,000 MCG TAB PO SCH (08:16)
[2018-12-08] MEDS: Lisinopril 20 MG TAB PO SCH (08:16)
[2018-12-08] MEDS: Multivitamin W/ Minerals 1 TAB PO SCH (08:16)
[2018-12-08] MEDS: Polyethylene Glycol 3350 17 GM Packet PO SCH (08:16)
[2018-12-08 08:44] LABS: Anion Gap 11 mmol/L (10-20); BUN (Urea Nitrogen) 7 mg/dL (9.8-20.1); Calc. Creatinine Clearance 99 mL/min (70-130); Calcium 8.7 mg/dL (7.8-10.44); Carbon Dioxide 28 mmol/L (23-31); Chloride 96 mmol/L (98-107); Estimated GFR-MDRD Greater than 90; Glucose 84 mg/dL (83-110); Potassium 4.2 mmol/L (3.5-5.1); Sodium 131 mmol/L (136-145)
--- NOTE | 2018-12-08 09:08 | PRG ---
DATE OF SERVICE: 12/08/2018 I saw Ms. Hightower in our hospital room this morning. She is having a blood drawn during our examination. She did not report any events overnight. Vitals have been stable and there is no fever recorded on her chart. I do not find any new deficits in all extremities. Incision was examined twice yesterday and wound care notified to treat her sacral decubitus. Thus far, also benefit from inpatient rehabilitation and a transfer can be made any time. Hopefully, that can happen as early as tomorrow. Job ID: [id number]
[2018-12-08 09:27] LABS: #Basophils 0.1 thou/uL (0.0-0.2); #Eosinphils 0.4 thou/uL (0.0-0.7); #Lymphocytes 1.1 thou/uL (1.20-3.40); #Monocytes 1.5 thou/uL (0.11-0.59); %Basophils 0.5 % (0.0-1.0); %Eosinophils 3.5 % (0.0-10.0); %Lymphocytes 9.8 % (21.0-51.0); %Monocytes 13.4 % (0.0-10.0); %Neutrophils 72.8 % (42.0-75.0); Hemoglobin 9.5 g/dL (12.0-16.0); Mean Corpuscular HGB CONC 32.9 g/dL (32.0-36.0); Mean Corpuscular Hemoglobin 28.7 pg (27.0-31.0); Mean Corpuscular Volume 87.2 fL (78.0-98.0); Mean Platelet Volume 6.8 fL (7.4-10.4); Platelet Count 391 thou/uL (130-400); RBC Distribution Width 13.8 % (11.5-14.5); Red Blood Cell (RBC) Count 3.32 mill/uL (4.20-5.40)
--- NOTE | 2018-12-08 11:48 | PRG ---
DATE OF SERVICE: 12/08/2018 SUBJECTIVE: The patient is seen and examined at the bedside. She seems to be doing somewhat better today. She is smiling and eating her breakfast during my talk to her. She had bowel movement. OBJECTIVE: Blood pressure is 124/65, pulse is 86, temperature is 98.4, maximal temperature is 98.9, respiratory rate is 14, and O2 saturation 96% on 2 L by nasal cannula. IMPRESSION: 1. Bilateral pulmonary infiltrates with adenopathy, treated as infectious etiology at this point. She will have followup with loom winder tender later after the treatment is completed. 2. Urinary tract colonization with chronic indwelling Frazier catheter. Her Diflucan was stopped by Dr. Vyas. 3. Lewy body dementia, chronic, stable. 4. Cauda equina syndrome, status post laminectomy, multilevel. 5. Severe muscle deconditioning requiring PT and transfer to the rehab. 6. History of rheumatoid arthritis. 7. Hypothyroidism. 8. Constipation. 9. Normocytic and normochromic anemia. PLAN: Plan is to release her to the rehab tomorrow. She was not too eager to go there because of the intensity of the physical therapy she is going to get. She will continue her Rocephin and azithromycin as per Dr. Vyas' recommendation. We will continue her other medications. She will continue PT, and we will send her to the rehab tomorrow. Wound Care is checking on her skin status and wound situation. Job ID: [id number]
[2018-12-08] MEDS: cefTRIAXone\\ROCEPHIN 2 GM in Sodium Chloride 0.9% 100 ML IVPB SCH (11:50)
[2018-12-08] MEDS: Azithromycin 500 MG in Sodium Chloride 0.9% 250 ML 250 ML IVPB SCH (12:50)
[2018-12-08] MEDS: MEMANTINE HCL 7 MG PO SCH ×3 (13:55→13:57)
--- NOTE | 2018-12-08 15:25 | PRG ---
DATE OF SERVICE: 12/08/2018 SUBJECTIVE: Mild dyspnea. No chest pain. A little bit of cough. No abdominal pain. Still with a Frazier catheter in place. OBJECTIVE: She has been afebrile now for the past few days. BP 114/63, pulse 91, respirations 16, O2 saturation 96, O2 nasal cannula. Awake, alert, oriented, recognized me. Lungs with scattered rhonchi, expiratory crackles, both hemithorax. S1 and S2, regular rate. Abdomen is soft, not distended. Frazier catheter in place. Diffuse joint deformities. LABORATORY STUDIES: White cell count is down from 19 to 11, platelets 391, 71% neutrophils, creatinine 0.49, albumin 2.5. Legionella pneumophila and strep pneumoniae antigen negative. The last chest x-ray with parenchymal stranding, interstitial prominence, chronic diffuse ground-glass hazy opacity. ASSESSMENT AND DISCUSSION: Lewy body dementia, chronic indwelling Frazier catheterization, urinary colonization, fecal impaction, retention, pulmonary interstitial and ground-glass opacities, bilateral diffusely distributed and chronic rheumatoid arthritis. Dr. Panchal has evaluated the patient and the possibility of infectious versus rheumatoid interstitial lung disease. The intention is to continue antimicrobials. She may need further evaluation including bronchoscopy. Job ID: [id number]
--- NOTE | 2018-12-08 16:23 | RAD ---
PORTABLE CHEST: HISTORY: Follow up infiltrates. COMPARISON: 11/29/2018 FINDINGS: There are bilateral patchy alveolar infiltrates, more pronounced on the right. Heart size is upper no rmal. Vascularity is mildly prominent. Prominent aortic calcification. IMPRESSION: Persistent bilateral infiltrates, more prominent on the right. POS: OFF
[2018-12-08] MEDS: Acetaminophen 325 MG TAB PO PRN (16:25)
--- NOTE | 2018-12-08 16:55 | PRG ---
DATE OF SERVICE: 12/08/2018 SUBJECTIVE: Patricia Hightower evaluated this morning. She had no complaints. OBJECTIVE: VITAL SIGNS: She is afebrile. Heart rate is 96, respiratory rate is 14, oximetry is 95% on 2 L cannula, blood pressure 122/62. LUNGS: Remarkable for crackles at her bases. HEART: Regular rhythm. ABDOMEN: Soft and nontender. IMPRESSION: Diffuse patchy infiltrates? of unclear etiology. Rheumatoid arthritis, due to lung disease is a possibility. Inflammatory reaction to an infectious process is possible. At this point in time, given her multiple medical problems, I would recommend that we simply repeat a radiograph in a month. I doubt that she has a true pneumonia per se. We will continue to follow up. No further bronchoscopy indicated at this time or any type of surgical lung biopsy. Job ID: [id number]
[2018-12-08] MEDS: Amitriptyline HCl 25 MG TAB PO SCH (21:34)
[2018-12-08] MEDS: Enoxaparin Sodium 30 MG/0.3 ML SYRINGE SC SCH (21:39)
[2018-12-09] MEDS: Levothyroxine Sodium 75 MCG TAB PO SCH (05:31)
[2018-12-09] MEDS: Lidocaine Viscous Sol 2% 15 ml UD Cup SSP SCH ×3 (06:31→16:52)
[2018-12-09] MEDS ORDERED: Sodium Chloride 0.9% 1,000 ML IV SCH (07:00)
[2018-12-09] MEDS: Liothyronine Sodium 5 MCG TAB PO SCH (08:29)
[2018-12-09] MEDS: Polyethylene Glycol 3350 17 GM Packet PO SCH (08:29)
[2018-12-09] MEDS: Pregabalin 75 MG CAP PO SCH (08:29)
[2018-12-09] MEDS: Lisinopril 20 MG TAB PO SCH (08:29)
[2018-12-09] MEDS: Cyanocobalamin (Vitamin B-12) 1,000 MCG TAB PO SCH (08:29)
[2018-12-09] MEDS: Nystatin 500,000 UNITS/5 ML UDCUP PO SCH ×3 (08:29→16:52)
[2018-12-09] MEDS: DULoxetine 60 MG CAP PO SCH (08:29)
[2018-12-09] MEDS: Multivitamin W/ Minerals 1 TAB PO SCH (08:29)
[2018-12-09] MEDS: Amlodipine 5 MG TAB PO SCH (08:30)
--- NOTE | 2018-12-09 09:03 | PRG ---
DATE OF SERVICE: 12/09/2018 I saw Ms. Hightower in our hospital room this morning. She continues to process the slow recovery from her significant cauda equina compression. Overnight, I do not see any fevers recorded. Her other vitals are stable. There is no change in her neurological examination. Ms. Hightower is ready for inpatient rehabilitation and transfer will be made today. Job ID: [id number]
--- NOTE | 2018-12-09 10:02 | PRG ---
DATE OF SERVICE: 12/09/2018 SUBJECTIVE: She seems to be doing okay. She had no acute complaints. OBJECTIVE: VITAL SIGNS: Temperature 98.3, pulse 94, respirations 16, O2 saturation 93% on 2 L, blood pressure 105/65. HEENT: Unremarkable. NECK: No adenopathy or JVD. LUNGS: Crackles bilaterally. CARDIAC: S1 and S2. Regular. ABDOMEN: Soft. EXTREMITIES: No edema. LABORATORY DATA: No labs were done today. ASSESSMENT: Interstitial lung disease, perhaps due to rheumatoid arthritis. PLAN: She will follow up with Dr. Panchal in the office about 1 month. She is cleared for discharge to rehab from Pulmonary standpoint and would finish out antibiotic regimen under Dr. Vyas' direction. Job ID: [id number]
[2018-12-09] MEDS: cefTRIAXone\\ROCEPHIN 2 GM in Sodium Chloride 0.9% 100 ML IVPB SCH (10:59)
[2018-12-09] MEDS: Azithromycin 500 MG in Sodium Chloride 0.9% 250 ML 250 ML IVPB SCH (12:03)
[2018-12-09 15:42] VITALS: BP 109/64; TEMP 98.3
--- NOTE | 2018-12-09 21:29 | DIS ---
DATE OF ADMISSION: 11/30/2018 DATE OF DISCHARGE: 12/09/2018 DIAGNOSES AT THE TIME OF ADMISSION: 1. Generalized weakness with failure to thrive. 2. Recurrent urinary tract infection related to chronic indwelling Frazier catheter. 3. Proctitis and severe constipation. 4. Cauda equina syndrome, possibly from lumbar stenosis with L4-L5 as well as T10-T11 levels. 5. Hyponatremia and hyperkalemia. 6. Normocytic normochromic anemia. 7. Hypoalbuminemia due to protein calorie malnutrition. 8. Hypertension. 9. Hypothyroidism. 10. Lewy body dementia. 11. Anxiety and depression. 12. Gastroesophageal reflux disease. FINAL DIAGNOSES AT THE TIME OF DISCHARGE: 1. Bilateral pulmonary infiltrates with adenopathy treated as infectious etiology at this point. The patient was seen by Dr. Panchal. He agrees with the plan for now. He wants to have chest x-ray done in 1 month and follow up with dot compliance manager after that. 2. Urinary tract colonization with chronic indwelling catheter. 3. Lewy body dementia, chronic, stable. 4. Cauda equina syndrome status post laminectomy, multilevel. 5. Severe muscle deconditioning requiring PT and transfer to the rehab. 6. History of rheumatoid arthritis. 7. Hypothyroidism. 8. Constipation. 9. Normocytic and normochromic anemia. 10. Gastroesophageal reflux disease. 11. Hypothyroidism. 12. Hypoalbuminemia due to protein calorie malnutrition. 13. Hyponatremia and hyperkalemia. 14. Proctitis and severe constipation. CONSULTANTS: 1. Dr. Blount, Gastrointestinal Service. 2. Dr. Oskar France, Neurosurgery Service. 3. Dr. Vyas, Infectious Disease Service. 4. Dr. Fermin, Neurosurgery. 5. Dr. Panchal, Pulmonary Service. 6. Dr. Dhaliwal, Pulmonary Service. PROCEDURES PERFORMED: Operations done by Dr. Oskar France on December 01, 2018, multilevel lumbar stenosis with cauda equina syndrome. Procedure performed; L1-L2, L2-L3, L3-L4, L4-L5, L5-S1 laminectomies, partial facetectomies, foraminotomies. HOSPITAL COURSE: The patient is a 78-year-old female, who was recently hospitalized at [facility] for generalized weakness and altered mental status. She was treated for this condition and then subsequently moved to rehabilitation. Apparently, she had E coli UTI at this time. Apparently, the patient had some subjective sensory changes in both lower extremities and spine MRI of the lumbar part showed multilevel degenerative spine changes, which were more pronounced at L4 and L5. Since she had underlying diagnosis of cauda equina from lumbar stenosis, she was sent from the rehab to the hospital for further evaluation of her problem. Her blood showed some leukocytosis with left shift, hyponatremia and hyperkalemia. At the time of emergency room evaluation, her white count was up to 16.8, hemoglobin 8.7, platelet count 207,000 with left shift. Sodium was 130, potassium 5.2, chloride 97, CO2 of 27, BUN 16, creatinine 0.66, glucose 83, AST 41, ALT 44, alkaline phosphatase 86, albumin 2.7. Lactic acid was 1.6. Urinalysis changes showed possible urinary tract infection. The patient got admitted to the hospital medical floor. Gastroenterology was consulted for proctitis. She was started on meropenem and urine culture was done. Also, Neurosurgery was consulted for evaluation. The patient was DNR and after Dr. Blount saw the patient, he recommended to proctoscopy and sometime in the future but this was nonurgent, more urgent was evaluation by Neurosurgery. The patient was evaluated and set up for surgery, which was done by Dr. France on the 01 of December. This included multilevel laminectomies, partial facetectomies, and foraminotomies. Also, she underwent Doppler studies on her lower extremities to rule out DVTs, which came back negative on two occasions during this hospitalization. The patient had chronic indwelling catheter and her urine cultures came back positive for presumptive Vangie albicans, so she was started on Diflucan but after consultation with Infectious Disease specialist, Dr. Vyas, the Diflucan was stopped because it was felt that this was more colonization than really infection. CT angiogram was done and showed no evidence of pulmonary embolism. For some shortness of breath, she was complaining about also there was some small bilateral pleural effusions and patchy infiltrates bilaterally with some mediastinal and hilar adenopathy. This was treated with antibiotics, presume that this was infectious etiology and dot compliance manager agreed with the plan. The patient was seen by Dr. Panchal, who wants to do follow up with the patient in 1 month after she has chest x-ray done and after she is completed with her treatments and antibiotics. Postoperatively, she gradually made small stabs to recovery, although she is presenting with profound deconditioning and she is going back to the rehab. She was continued on physical therapy and she will continue more physical therapy while in the rehab. We are going to continue her antibiotics, which is Rocephin and azithromycin as recommended per Dr. Vyas for additional few more days, then she will have chest x-ray and she will be switched to levofloxacin. This could be pulmonary changes related to her rheumatoid arthritis but at this point, she is treated as infectious etiology. She had antigens on Legionella and Streptococcus checked in urine and both of them came back negative. Other medications at the time of discharge, please refer to the list of discharge medications because it is very long and she will stay on her regular diet while in the rehab and receive PT and OT, and wound care on a daily basis. This discharge is more than 30 minutes. Job ID: [id number]
--- NOTE | 2018-12-11 08:50 | PQF ---
[employer] Professor Crystal Reports BUNNY Mcginnis MATTHEW ANDERSEN MD [id number] [facility] [id number] CLINICAL DOCUMENTATION CLARIFICATION FORM: POST DISCHARGE Addendum to original discharge summary date: ____ Late entry note date: __ Date: 12/11/18 ATTN: MATTHEW ANDERSEN MD Please exercise your independent, professional judgment in responding to the clarification form. Clinical indicators are provided on the bottom of this form for your review Please check appropriate box(s): [ x] Protein Calorie Malnutrition: [ ] Mild [ x ] Moderate [ ] Severe [ ] Other Malnutrition (please specify) __ [ ] Underweight without malnutrition [ ] Cachexia [ ] Other diagnosis [ ] Unable to determine CLINICAL INDICATORS - SIGNS / SYMPTOMS / LABS - Hypoalbuminemia due to protein malnutrition- , 12/09, MATTHEW ANDERSEN MD - Generalized Weakness with failure to thrive-DS, 12/09, MATTHEW ANDERSEN MD - Serum Total protein: 5.3L-Laboratory, 11/30 - Albumin:2.5L-Laboratory, 11/30 - BMI:25.8- Vital signs RISK FACTORS - Normocytic normochromic anemia-DS, 12/09, MATTHEW ANDERSEN MD - Recurrent UTI related to chronic indwelling morgan catheter-DS, 12/09, MATTHEW ANDERSEN MD - proctitis with constipation- DS, 12/09, MATTHEW ANDERSEN MD TREATMENT: -Multivitamins with minerals- MAR, 09/29 -Sodium chloride.IV-12/01 Moderate Malnutrition (in acute illness) Energy Intake: <75% of estimated energy requirement for > 7 days Weight Loss: 1-2%/1 week; 5%/ 1 month; 7.5%/3 months Other: mild body fat loss; mild muscle mass loss; mild fluid accumulation; Severe Malnutrition (in acute illness) Energy Intake: < 50% of estimated energy requirement for > 5 days Weight Loss: >1-2%/1 week; >5%/1 month; >7.5%/3 months Other: moderate body fat loss; moderate muscle mass loss; moderate- severe fluid accumulation; measurably MTDD
== END 2018-12-09 17:02 | disposition short-term general hospital (02) | DRG 516 ==
LOC: T4-A 11:37 → SURG A 12-01 18:33
PROVIDERS: ADMIT Family Medicine; ATTEND Family Medicine
PROC: 30233N1 Transfusion of Nonautologous Red Blood Cells into Peripheral Vein, Percutaneous Approach (ICD-10-PCS; 2018-11-30)
PROC: 01NB0ZZ Release Lumbar Nerve, Open Approach (ICD-10-PCS; principal; 2018-12-01)
DX: M48.061 Spinal stenosis, lumbar region without neurogenic claudication (principal); T83.511A Infection and inflammatory reaction due to indwelling urethral catheter, initial encounter; G83.4 Cauda equina syndrome; E87.1 Hypo-osmolality and hyponatremia; J84.9 Interstitial pulmonary disease, unspecified; E44.0 Moderate protein-calorie malnutrition; Z66 Do not resuscitate; R59.9 Enlarged lymph nodes, unspecified; Y73.8 Miscellaneous gastroenterology and urology devices associated with adverse incidents, not elsewhere classified; K59.00 Constipation, unspecified; K62.89 Other specified diseases of anus and rectum; G31.83 Neurocognitive disorder with Lewy bodies; F02.80 Dementia in other diseases classified elsewhere, unspecified severity, without behavioral disturbance, psychotic disturbance, mood disturbance, and anxiety; R53.81 Other malaise; M06.9 Rheumatoid arthritis, unspecified; E06.9 Thyroiditis, unspecified; D64.9 Anemia, unspecified; K21.9 Gastro-esophageal reflux disease without esophagitis; E03.9 Hypothyroidism, unspecified; E87.5 Hyperkalemia; B96.20 Unspecified Escherichia coli [E. coli] as the cause of diseases classified elsewhere; F41.9 Anxiety disorder, unspecified; F32.9 Major depressive disorder, single episode, unspecified; L89.152 Pressure ulcer of sacral region, stage 2
CPT/HCPCS: 36415; 36416; 36430; 71045; 71275; 76000; 80048; 80053; 81001; 83880; 84134; 85025; 86850; 86900; 86901; 87086; 87449; 87633; 87899; 93970; J0456; J0690; J0696; J1450; J1650; J2001; J2185; J2370; J2405; J2704; J3010; J3370; J3490; J7050; P9016; P9045; Q9966

== ENCOUNTER 2018-12-19 02:08 | Inpatient (IN) | payer MEDICARE ==
[2018-12-19] MEDS ORDERED: Acetaminophen 650 MG Suppository ONE (02:17)
[2018-12-19] MEDS ORDERED: Acetaminophen 325 MG Suppository ONE (02:17)
[2018-12-19] MEDS ORDERED: Rocuronium Bromide 10 MG/ML (10ML VIAL) ONE (02:40)
[2018-12-19] MEDS ORDERED: EPINEPHrine 1 MG/10 ML Abboject SYRINGE ONE (02:42)
[2018-12-19 02:49] LABS: Bilirubin Negative (Negative); Blood, Urine Negative (Negative); Clarity Clear (Clear); Glucose, Urine (Dipstick) Normal (Negative); Leukocyte 250 Leu/uL (Negative); Nitrite Negative (Negative); Protein, Urine (Dipstick) Negative (Neg-Trace); Squamous Epithelial None Seen HPF (0-3); Urobilinogen Normal mg/dL (Less than 2); Yeast-Budding 2+ HPF (None Seen)
[2018-12-19 02:50] LABS: Bacteria/HPF 1+ HPF (None Seen)
[2018-12-19] MEDS ORDERED: Fentanyl 100 MCG/2 ML VIAL ONE (03:01)
[2018-12-19 03:02] LABS: #Eosinphils 0.4 thou/uL (0.0-0.7); #Lymphocytes 1.5 thou/uL (1.20-3.40); #Monocytes 1.2 thou/uL (0.11-0.59); #Neutrophils 16.3 thou/uL (1.40-6.50); %Basophils 0.3 % (0.0-1.0); %Lymphocytes 7.9 % (21.0-51.0); %Monocytes 6.3 % (0.0-10.0); %Neutrophils 83.5 % (42.0-75.0); Hemoglobin 8.1 g/dL (12.0-16.0); Mean Corpuscular HGB CONC 33.3 g/dL (32.0-36.0); Mean Corpuscular Hemoglobin 28.7 pg (27.0-31.0); Mean Corpuscular Volume 86.1 fL (78.0-98.0); Platelet Count 347 thou/uL (130-400); RBC Distribution Width 13.9 % (11.5-14.5); Red Blood Cell (RBC) Count 2.81 mill/uL (4.20-5.40); White Blood Cell (WBC) Count 19.5 thou/uL (4.8-10.8)
[2018-12-19] MEDS ORDERED: Acetaminophen 650 MG Suppository PR PRN (03:26)
[2018-12-19 03:36] LABS: Actual Bicarbonate (HCO3a) 28.3 mEq/L (22-28); Analyzer IN Cardio ER; Base Excess (BEa) 4.2 mEq/L (-2.0 to +3.0); CO2 Tension 40.1 mmHg (35.0-45.0); Calcium, Ionized 1.12 mmol/L (1.12-1.30); Carboxyhemoglobin (COHb) 0.4 gm% (0.0-3.0); Hemoglobin (Hb) 8.4 g/dL (12.0-16.0); O2 Tension (PaO2) 67.6 mmHg (> 70.0); Potassium - ABG Lab 3.59 mmol/L (3.70-5.30); pH, Arterial 7.47 (7.35-7.45)
[2018-12-19 03:37] LABS: ALV-art Gradient 167.475 (0-20); Puncture Site RRA
--- NOTE | 2018-12-19 03:49 | PDOC.EVN ---
Event Note - Event Note Event Note: [id number] HP
[2018-12-19 03:53] LABS: ALT (SGPT) 15 U/L (8-55); AST (SGOT) 33 U/L (5-34); Albumin 2.9 g/dL (3.4-4.8); Alkaline Phosphatase 90 U/L (40-110); Anion Gap 14 mmol/L (10-20); BUN (Urea Nitrogen) 8 mg/dL (9.8-20.1); Bilirubin, Total 0.4 mg/dL (0.2-1.2); Calc. Creatinine Clearance 0 mL/min (70-130); Calcium 8.8 mg/dL (7.8-10.44); Carbon Dioxide 26 mmol/L (23-31); Chloride 93 mmol/L (98-107); Estimated GFR-MDRD 88; Globulin 3.7 g/dL (2.4-3.5); Glucose 101 mg/dL (83-110); Potassium 4.2 mmol/L (3.5-5.1); Protein, Total 6.6 g/dL (6.0-8.3); Sodium 129 mmol/L (136-145)
[2018-12-19] MEDS ORDERED: Piperacillin/Tazobactam 3.375 GM VIAL ONE (03:58)
[2018-12-19] MEDS: Vancomycin HCl 1 GM in Premix Bag 1 BAG IVPB SCH ×2 (04:16→17:13)
--- NOTE | 2018-12-19 04:37 | HP ---
CHIEF COMPLAINT: Shortness of breath and low oxygen saturation. HISTORY OF PRESENT ILLNESS: Ms. Hightower is a 78-year-old female, who underwent a laminectomy on 11/29/2018, presented to the emergency room via EMS from [facility] for low oxygen saturation, sepsis. The patient currently in rehab following hospitalization for urinary tract infection and sepsis. The patient's recent chest x-ray was concerning for pneumonia. The patient had been on course of antibiotics which completed about 4 days ago. Last night, the patient became hypoxic, placed on face mask. The patient also was found to have elevated lactic acid. In the emergency room, the patient was in respiratory distress with respiratory rate in the 40s, longest duration. The patient was intubated and mechanically ventilated. The patient had a temperature as high as 102.1. WBC count elevated at 19.5. Chest x-ray showing pneumonia. Septic workup done in the emergency room. The patient started on IV antibiotics. The patient is being admitted to the critical care unit for further management. PAST MEDICAL HISTORY: 1. Lewy body dementia. 2. Recurrent urinary tract infections. 3. Rheumatoid arthritis. 4. Polymyalgia rheumatica. 5. Hypertension. 6. Osteoarthritis. 7. Hypothyroidism. 8. GERD. PAST SURGICAL HISTORY: The patient had a recent laminectomy. Further past surgical history unable to review at this point. FAMILY HISTORY: Not able to provide any good family history at this point. SOCIAL HISTORY: The patient is from rehab. No reported history of tobacco, alcohol, or illicit drug abuse. PAST PSYCHIATRIC HISTORY: Positive for dementia, anxiety, and depression. CURRENT HOME MEDICATIONS: Please see home medication reconciliation form for updated medications. ALLERGIES: NO KNOWN ALLERGIES, UNCONFIRMED. REVIEW OF SYSTEMS: Unable to obtain as the patient is currently intubated, sedated, and mechanically ventilated. PHYSICAL EXAMINATION: GENERAL: The patient is intubated, sedated. VITAL SIGNS: Blood pressure 150/70, pulse is 101, respiratory rate is 20, temperature 102.1. HEAD AND NECK: Normocephalic, atraumatic. NECK: Supple. CHEST: Bilateral crackles, diffuse. HEART: S1, S2. Regular, tachycardic. ABDOMEN: Soft. Bowel sounds present. NEUROLOGIC: Intubated, sedated, unable to assess. PSYCHIATRIC: Intubated, sedated, unable to assess. EXTREMITIES: No clubbing or cyanosis. LABORATORY DATA: WBC count elevated at 19.5, hemoglobin 8.1, platelets 347. Chemistry results are pending at the time of this dictation. Urinalysis is positive for wbc and 1+ bacteria, nitrite negative. Chest x-ray, multifocal opacities/pneumonia. ASSESSMENT: 1. Acute hypoxic respiratory failure. 2. Healthcare associated pneumonia. 3. Sepsis. 4. History of recurrent urinary tract infection. 5. Hypothyroidism. 6. Hypertension. 7. Rheumatoid arthritis. 8. Polymyalgia rheumatica. 9. Gastroesophageal reflux disease. PLAN: 1. Admit to critical care unit. 2. Continue full ventilator support. 3. Keep n.p.o. 4. IV fluids. 5. Septic workup including blood cultures done in the ED. 6. We will start the patient on antibiotics to cover for healthcare-associated pneumonia with cefepime and vancomycin. 7. Reconcile home medications. 8. DVT prophylaxis with low-molecular weight heparin. 9. GI prophylaxis. 10. Consult Pulmonary in a.m. for ventilator management and critical care management. 11. The patient's condition is critical. 12. Expected length of stay 3 midnights or more. Job ID: [id number]
[2018-12-19 04:41] LABS: Hemoglobin 7.9 g/dL (12.0-16.0); Mean Corpuscular HGB CONC 32.9 g/dL (32.0-36.0); Mean Corpuscular Hemoglobin 28.1 pg (27.0-31.0); Mean Corpuscular Volume 85.5 fL (78.0-98.0); Mean Platelet Volume 7.4 fL (7.4-10.4); Platelet Count 323 thou/uL (130-400); Red Blood Cell (RBC) Count 2.82 mill/uL (4.20-5.40); White Blood Cell (WBC) Count 19.4 thou/uL (4.8-10.8)
[2018-12-19 05:01] LABS: Band 9 % (5-11); Lymphocytes 6 % (21-51); MDiff Complete? YES; Monocytes 8 % (0-10); Neutrophil 77 % (42-75)
[2018-12-19] MEDS ORDERED: DISCONTINUE PREVIOUS NARCOTIC PAIN MEDICATIONS AND BENZODIAZEPINES FS SCH (06:15)
[2018-12-19] MEDS ORDERED: Propofol BOLUS 1,000 MG/100 ML VIAL IV PRN (06:15)
[2018-12-19] MEDS: Sodium Chloride 0.9% 1,000 ML IV SCH ×2 (06:15→10:20)
[2018-12-19] MEDS ORDERED: Morphine 2 MG/ML SYRINGE SLOW IVP PRN (06:15)
[2018-12-19] MEDS ORDERED: Fentanyl BOLUS 250 ML IVPB PRN (06:15)
[2018-12-19] MEDS: Cefepime 2 GM in Sodium Chloride 0.9% 100 ML IVPB SCH ×2 (06:36→17:13)
--- NOTE | 2018-12-19 07:50 | RAD ---
PORTABLE CHEST: Date: 12/19/18 INDICATION: Shortness of breath. Decreased O2 sat. COMPARISON: 12/17/18. FINDINGS/IMPRESSION: Bilateral diffuse infiltrates are seen throughout both lung barraza. Heart size upper normal. There is evidence of mild vascular congestion. Probable small effusions. POS: OFF
--- NOTE | 2018-12-19 08:03 | RAD ---
EXAM: Single view of the chest HISTORY: Respiratory failure COMPARISON: 12/19/2018 at 2:04 AM FINDINGS: Single view of the chest shows a normal sized cardiomediastinal silhouette. Diffuse mixed alveolar/interstitial opacities are seen. An endotracheal tube is seen with its tip between the clavicles. An NG tube courses off the inferior aspect of the film. There is no evidence of consolida tion, mass, or pleural effusion. The bones are unremarkable. IMPRESSION: 1. Appropriate position of endotracheal tube and NG tube 2. Diffuse mixed infiltrates.
[2018-12-19 08:04] LABS: Lactic Acid 2.6 mmol/L (0.5-2.2)
[2018-12-19] MEDS ORDERED: Vancomycin HCl 1 GM in Sodium Chloride 0.9% 250 ML 250 ML IVPB SCH (09:00)
[2018-12-19] MEDS ORDERED: FLU VACC TS2019-20(65YR UP)/PF 180 MCG/0.5 ML SYRINGE IM ONE (10:00)
--- NOTE | 2018-12-19 10:17 | PDOC.PALCO ---
Palliative Care Consult - Consult Details Requesting Physician: Dr De Leon Reason for Consult: goals of care, family support Family Members Present: Daughter Latisha - Pertinent HPI 78 year old female who moved to [facility] two years ago to live with her daughter secondary to decline and falls. At the end of November patient was seen, evaluated for progressive cauda equina syndrome, and surgery was performed with the understanding that the patient was already in a compromised state of health secondary to chronic wounds from being bed bound, and mal nutrition posing less than optimal healing potential. Surgery was performed and patient was discharged to rehab. Was progressing and participating in rehab, 12/18 patient became short of breath and sepsis was suspected secondary to recent course of antibiotics for management of pneumonia and uti. Transferred by EMS to the hospital and was intubated and mechanically ventilated, admitted to CCU for further management. - Pertinent PMH Lewy Body Dementia, HTN, Rheumatoid arthritis, Hypothryoid, - Social History Smoking Status: Never smoker Smoking: no tobacco exposure Alcohol Use: none Drug Use History: none Living Situation: other (Lives with her daughter, but was recently in rehab) - Medications MAR Reviewed: Yes - Allergies Allergies/Adverse Reactions: Allergies Allergy/AdvReac Type Severity Reaction Status Date / Time No Known Drug Allergies Allergy Verified 12/19/18 12:53 - Subjective Intubated, mechanical ventilation, sedated ROS: unable to perform ROS secondary to sedated/mechanically ventilated - Objective Vital Signs: Vital Signs - Most Recent Temp Pulse Resp BP Pulse Ox 97.8 F 85 86/36 L 12/19/18 07:00 12/19/18 09:50 12/19/18 06:03 Palliative Performance Scale: 20 - Physical Exam Constitutional: mild distress HEENT: moist MMs, sclera anicteric Deviation from normal: diminished to bases, mecanical ventilation Cardiovascular: RRR, no significant murmur Gastrointestinal: soft, non-tender, positive bowel sounds Musculoskeletal: no clubbing Deviation from normal: no purposeful movement at time of assessemnt, sedated Deviation from normal: sedated Deviation from normal: poor turgor, brusing, chronic non healing wounds - Problem List (1) Palliative care encounter Code(s): Z51.5 - ENCOUNTER FOR PALLIATIVE CARE Current Visit: Yes Status: Acute (2) Sepsis Code(s): A41.9 - SEPSIS, UNSPECIFIED ORGANISM Current Visit: Yes Status: Acute (3) Cauda equina syndrome Code(s): G83.4 - CAUDA EQUINA SYNDROME Current Visit: No Status: Acute (4) Dementia Code(s): F03.90 - UNSPECIFIED DEMENTIA WITHOUT BEHAVIORAL DISTURBANCE Current Visit: No Status: Chronic (5) Severe muscle deconditioning Code(s): R29.898 - OTH SYMPTOMS AND SIGNS INVOLVING THE MUSCULOSKELETAL SYSTEM Current Visit: No Status: Chronic - Plan/Recommendations Plan: Life review of patient with daughter. Discussed the patient wishes as she had expressed in the past. *Daughter (MPOA) requested that patient be made a DNAR *Daughter stated that she was not certain her mother would want any further measures to be done *Palliative Care to follow and support daughter of patient as she makes complex decisions in relation to poor prognosis and chronic conditions paired with patient known wishes [45] minutes spent on this encounter with >50% of the time in counseling and coordination of care. Thank you for this very appropriate consult.
[2018-12-19] MEDS: Enoxaparin Sodium 40 MG/0.4 ML SYRINGE SC SCH (10:19)
[2018-12-19] MEDS: Famotidine/PF 20 mg/2ml Vial SLOW IVP SCH ×2 (10:19→20:07)
[2018-12-19] MEDS: Fluconazole In NaCl,Iso-Osm 200 MG in Premix Bag 1 BAG IVPB SCH (10:20)
[2018-12-19] MEDS: Lorazepam 2 MG/ML VIAL SLOW IVP PRN ×3 (10:35→22:24)
--- NOTE | 2018-12-19 13:25 | CON ---
DATE OF CONSULTATION: Ms. Hightower is a 78-year-old woman, known to my service. She was admitted at the end of November for progressive cauda equina syndrome, essentially on imaging, manifested by severe L1-S1 stenosis. 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 I had a long discussion with her and her daughter at that time regarding potential treatment, and while surgery was an option, the three of us certainly knew that this would be with risk as the patient was quite malnourished. I should note her prealbumin was 8, indicating a very poor nutritional state and very difficult time of healing surgical or pressure wounds that she already had. Nevertheless, we agreed that have any type of chance for recovery both from bowel, bladder, and mobility standpoint along with reduction of pain in the back and legs, surgery would be entertained and we have pursued this on December 01. She had a slow recovery postoperatively, but was able to progress to even standing, and even while in inpatient rehab per her daughter, she was able to validation intern the parallel bars. This was an improvement given the patient's prolonged bed-bound state prior to surgery. Unfortunately, she began to develop symptoms of sepsis. She had Vangie in her urine preoperatively and she had been readmitted for concerns as well now of sepsis with diffuse infiltrates in her lungs, but also superficial dehiscence of her surgical wound. There were no brett purulence. She has had deepening of her pressure sores in the sacrum and bilateral iliac crest regions. Her white blood cell count has gone up into the 19,000 range with a neutrophil shift and she has been found now to be septic with blood pressure in the 80/40 range, but without tachycardia. She has to this point been afebrile. Upon my evaluation over this morning, she has just been intubated and has been made do not resuscitate. Family is at the bedside and I have consulted her daughter. I think while we attempted to improve the patient's quality of life by improving mobilization, improving bowel and bladder function of which she began to recover perineal sensation and move her lower extremities to the point of being able to stand, and the overall poor medical condition and generalized malnutrition and prolonged immobilization . I think that Palliative Care at this point is the best route and hospice. Job ID: [id number]
--- NOTE | 2018-12-19 19:36 | PDOC.PULCN ---
Pulmonology Consult: HPI - Date of Consult Date: 12/19/18 Time: 15:00 - Consult Details Reason for Consult: Acute Hypoxic Respiratory Failure on ventilator support, ICU admit Requesting Physician: Dr. Butcher - History of Present Illness HPI: BUNNY LARIOS is a 78 year-old F with a pmh of RA, recurrent UTIS, OA, hypothyroidism, and recent hospitalization with antibiotics use who presents to the ER from rehab with a cc of reduced oxygen saturation and AMS. For the last 4 weeks, she has been in a health care center for either acute management of an illness or for physical rehabilitation. On 11/13/18, she was discharged from [facility] after being treated for an E. coli UTI requiring IV abx upon discharge. On 11/30/18, she underwent an L1-S1 lumbar laminectomy which proved to provide improvement in her lower extremity neurological status. She however, presented to the ER with SOB and respirations in the 40s at one point. It became evident that she would tire out and be unable to maintain this level of effort and was intubated in the ER. Pulmonology Consult: ROS - Review of Systems ROS unobtainable: other (obtained from family and chart review) All systems: reviewed and no additional remarkable complaints except as stated Constitutional: fever, chills Cardiovascular: negative: chest pain, palpitations Respiratory: short of breath, tachypnea. negative: chest tightness Pulmonology Consult: PMH Source: family Past Medical History: RA, OA, polymyalgia rheumatica, HTN, hypothyroidism, GERD, Lewy body dementia - Family History Family history: reviewed and not pertinent - Social History Smoking Status: Never smoker Alcohol Use: none Drug Use History: none Living Situation: other (Rehab, was indepenent living with daughter and son-in- law 6 weeks prior to this admission) Pulmonology Consult: Meds - Medications MAR Reviewed: Yes Medications: Current Medications Acetaminophen (Tylenol) 650 mg LA Q4H PRN PRN Reason: Headache/Fever/Mild Pain (1-3) Last Admin: 12/19/18 17:14 Dose: 650 mg Enoxaparin Sodium (Lovenox) 40 mg SC 0900 [facility] Last Admin: 12/19/18 10:19 Dose: 40 mg Famotidine (Pepcid) 20 mg SLOW IVP Q12HR [facility] Last Admin: 12/19/18 10:19 Dose: 20 mg Furosemide (Lasix) 20 mg SLOW IVP 0600 [facility] Stop: 12/20/18 08:00 Fentanyl Citrate 2,000 mcg/ (Sodium Chloride) 100 mls @ 0 mls/hr IV INF [facility]; Protocol Stop: 01/18/19 02:55 Cefepime HCl 2 gm/ Sodium (Chloride) 100 mls @ 200 mls/hr IVPB 0400,1600 [facility] Last Admin: 12/19/18 17:13 Dose: 100 mls Sodium Chloride (Normal Saline 0.9%) 1,000 mls @ 50 mls/hr IV .Q20H [facility] Last Admin: 12/19/18 10:20 Dose: 1,000 mls Vancomycin HCl 1 gm/ Device 200 mls @ 200 mls/hr IVPB 0500,1700 [facility] Last Admin: 12/19/18 17:13 Dose: 200 mls Fluconazole/Sodium Chloride (200 mg/ Device) 100 mls @ 100 mls/hr IVPB DAILY [facility] Last Admin: 12/19/18 10:20 Dose: 100 mls Fentanyl Citrate (Fentanyl Bolus) 250 mls @ 0 mls/hr IVPB PRN PRN PRN Reason: Breakthrough pain/agitation Stop: 01/18/19 06:15 Levofloxacin 750 mg/ Device 150 mls @ 100 mls/hr IVPB Q24HR [facility] Lorazepam (Ativan) 2 mg SLOW IVP Q1H PRN PRN Reason: Breakthrough agitation Stop: 01/18/19 06:15 Last Admin: 12/19/18 16:39 Dose: 2 mg Miscellaneous Medication (Pharmacy To Dose) 1 each IVPB PRN PRN PRN Reason: Pharmacy to dose Morphine Sulfate (Morphine) 2 mg SLOW IVP Q1H PRN PRN Reason: BREAKTHROUGH PAIN/Agitation Stop: 01/18/19 06:15 Propofol (Diprivan) 1,000 mg IV INF PRN; Protocol PRN Reason: TO ACHIEVE GOAL RASS Stop: 01/18/19 06:15 Propofol (Diprivan Bolus) 20 mg IV Q5MIN PRN PRN Reason: BREAKTHROUGH AGITATION Stop: 01/18/19 06:15 - Allergies Allergies/Adverse Reactions: Allergies Allergy/AdvReac Type Severity Reaction Status Date / Time No Known Drug Allergies Allergy Verified 12/19/18 12:53 Pulmonology Consult: PE - Physical Exam Deviation from normal: Intubated with no apparent distress HEENT: PERRLA (constricted but reactive) Neck: no JVD Cardiovascular: RRR, no significant murmur Respiratory: rhonchi. negative: respiratory distress Focused Respiratory Location: rhonchi: Right, Left, Upper, Lower Gastrointestinal: soft, non-tender, no distention, positive bowel sounds Musculoskeletal: no edema, pulses present Skin: cap refill <2 seconds Pulmonology Consult: Results - Labs Result Diagrams: 12/20/18 05:49 12/20/18 05:49 - ABG Interpretation ABG Results: ABG pH 7.47 (7.35-7.45) H 12/19/18 03:30 ABG pCO2 40.1 mmHg (35.0-45.0) 12/19/18 03:30 ABG O2 Sat Calc/Ashish 92.9 % (94.0-98.0) L 12/19/18 03:30 ABG Base Excess 4.2 mEq/L (-2.0 to +3.0) H 12/19/18 03:30 - Radiology Interpretation Chest x-ray Status: report reviewed by me (Bilateral diffuse infiltrates are seen throughout both lung barraza. Heart size normal. There is evidence of mild vascular congestion. Probable small effusions) Pulmonology Consult: A/P - Time Time: 50% of the time was spent in coordination of care (as documented) at patient's floor/unit and/or counseling patient. Time with Patient: greater than 50 minutes - Plan Plan: Severe sepsis likely secondary to bilateral pneumonia and/or UTI -Concern for HAP due to recent hospital/rehab stays and antibiotic use -Levaquin added to regiment -Continue broad spectrum antibiotics until sensitivities result from blood and urine cultures -Continue fluconazole for yeast found in urine -Vital signs stable, no current need for pressors -We will allow for the dust to settle and reassess after she has rested on the ventilator Acute hypoxic respiratory failure requiring ventilatory support -Likely due to above, continue respiratory support UTI, bot yeast budding and bacteria present -Treat as above Pressure ulcers and laminectomy wound -Consult wound care for evaluation and treatment Hypothyroidism -Pending TSH Spinal stenosis with recent laminectomy -Dr France consulted Charles Mccarthy DO PGY-2 Addendum - Attending - Attending Attestation Date/Time: 12/19/181899 I personally evaluated the patient and discussed the management with Dr. Beltran. I agree with the History, Examination, Assessment and Plan documented above with any addition or exceptions noted below. Critical care time: 30 minutes.
[2018-12-20] MEDS: Cefepime 2 GM in Sodium Chloride 0.9% 100 ML IVPB SCH ×2 (04:17→17:26)
[2018-12-20] MEDS: Vancomycin HCl 1 GM in Premix Bag 1 BAG IVPB SCH ×2 (04:18→17:28)
[2018-12-20] MEDS: Lorazepam 2 MG/ML VIAL SLOW IVP PRN ×2 (05:36→17:20)
[2018-12-20] MEDS ORDERED: Furosemide 20 MG/2 ML VIAL SLOW IVP SCH (06:00)
[2018-12-20 06:26] LABS: Anion Gap 8 mmol/L (10-20); BUN (Urea Nitrogen) 10 mg/dL (9.8-20.1); Calc. Creatinine Clearance 83 mL/min (70-130); Calcium 8.3 mg/dL (7.8-10.44); Carbon Dioxide 24 mmol/L (23-31); Chloride 101 mmol/L (98-107); Estimated GFR-MDRD Greater than 90; Glucose 115 mg/dL (83-110); Magnesium 1.6 mg/dL (1.6-2.6); Potassium 3.8 mmol/L (3.5-5.1); Sodium 129 mmol/L (136-145)
[2018-12-20 06:32] LABS: Phosphorus 2.7 mg/dL (2.3-4.7)
[2018-12-20 06:52] LABS: Hemoglobin 7.6 g/dL (12.0-16.0); Mean Corpuscular HGB CONC 32.4 g/dL (32.0-36.0); Mean Corpuscular Hemoglobin 28.3 pg (27.0-31.0); Mean Corpuscular Volume 87.5 fL (78.0-98.0); Mean Platelet Volume 7.1 fL (7.4-10.4); Platelet Count 309 thou/uL (130-400); RBC Distribution Width 13.9 % (11.5-14.5); Red Blood Cell (RBC) Count 2.68 mill/uL (4.20-5.40)
[2018-12-20 06:54] LABS: Band 4 % (5-11); Lymphocytes 3 % (21-51); MDiff Complete? YES; Monocytes 2 % (0-10); Neutrophil 91 % (42-75); Platelet Morphology Comment Appears Adequate
[2018-12-20] MEDS: fentaNYL Citrate/PF 2,000 MCG in Sodium Chloride 0.9% 60 ML IV SCH (07:26)
[2018-12-20 07:27] LABS: Actual Bicarbonate (HCO3a) 21.3 mEq/L (22-28); Base Excess (BEa) -3.3 mEq/L (-2.0 to +3.0); CO2 Tension 35.7 mmHg (35.0-45.0); Calcium, Ionized 1.18 mmol/L (1.12-1.30); Carboxyhemoglobin (COHb) 2.1 gm% (0.0-3.0); Potassium - ABG Lab 3.65 mmol/L (3.70-5.30); pH, Arterial 7.39 (7.35-7.45)
[2018-12-20 07:28] LABS: O2 Tension (PaO2) 52.6 mmHg (> 70.0); Puncture Site RRA
[2018-12-20 07:29] LABS: ALV-art Gradient 259.275 (0-20)
--- NOTE | 2018-12-20 07:56 | RAD ---
PORTABLE CHEST: DATE: 12/20/2018. PROVIDED CLINICAL HISTORY: Respiratory insufficiency. FINDINGS: Comparison 12/19/2018. Significant interval change with respect to the prior examination is not appa rent. IMPRESSION: As above. POS: OFF
--- NOTE | 2018-12-20 09:36 | PRG ---
DATE OF SERVICE: 12/20/2018 SUBJECTIVE: Events have been reviewed. She presented to the emergency room and was intubated yesterday. OBJECTIVE: VITAL SIGNS: Currently, her blood pressure is 143/60, heart rate is 105, respiratory rate is in the teens. Minute volume is about 9 L a minute. She is sedated for ventilation. LUNGS: Clear anteriorly. HEART: Regular rhythm. ABDOMEN: Soft. EXTREMITIES: Without asymmetry. IMAGING STUDIES: Chest radiograph shows diffuse increased interstitial markings. LABORATORY DATA: White count is 21, hemoglobin is 7.6, platelets are 309,000. Sodium 129, potassium 3.8, chloride 101, bicarb 24, BUN 10, creatinine 0.59, glucose 115. IMPRESSION: Diffuse increased interstitial markings present on last admission. She was relatively asymptomatic other than mild hypoxemia. My concern was that she had some degree of rheumatoid lung disease. I did not feel it was appropriate to work her up with a biopsy at that point. She has underlying dementia, now reviewing records. It is noted that she is do not resuscitate status. Conservative approach with antibiotics and steroids would be the best option at this point in time. Weaning will likely be a slow process. There are no films from past years, but she does have film from November 18, showing a diffuse increase in interstitial markings as well. I suppose this could be a pulmonary fibrosis, but the radiographic picture probably is not consistent with this. There is no reason for her to have hypersensitivity pneumonitis, and she has dementia and is living in a full-time care environment. We will follow the other physicians caring for her. CRITICAL CARE TIME: 30 minutes. Job ID: [id number]
[2018-12-20] MEDS: Enoxaparin Sodium 40 MG/0.4 ML SYRINGE SC SCH (10:15)
[2018-12-20] MEDS: Fluconazole In NaCl,Iso-Osm 200 MG in Premix Bag 1 BAG IVPB SCH (10:16)
[2018-12-20] MEDS: Famotidine/PF 20 mg/2ml Vial SLOW IVP SCH ×2 (10:16→20:26)
[2018-12-20 11:16] LABS: Lactic Acid 1.7 mmol/L (0.5-2.2)
[2018-12-20] MEDS: Sodium Chloride 0.9% 1,000 ML IV SCH (11:26)
[2018-12-20 13:36] VITALS: BMI 23.8
[2018-12-20 16:15] LABS: Vancomycin, Trough 15.9 ug/mL
--- NOTE | 2018-12-20 21:51 | PDOC.HOSPP ---
- Subjective Encounter Date: 12/20/18 Encounter Time: 18:00 Subjective: The patient is intubated. She is off sedation however still not following commands. FiO2 increased by ICU, otherwise no changes made. - Objective Vital Signs & Weight: Vital Signs (12 hours) Temp Pulse Pulse Resp BP BP Pulse Ox 12/20/18 20:00 99.8 F H 23 H 99 12/20/18 19:37 101 H 97 12/20/18 18:00 24 H 12/20/18 16:00 100.1 F H 28 H 12/20/18 14:13 109 H 131/48 L 12/20/18 14:00 33 H 12/20/18 12:15 98.8 F 103 H 26 H 117/55 L 95 12/20/18 12:00 28 H 12/20/18 10:40 102 H 124/52 L 12/20/18 10:15 99.9 F H 103 H 25 H 124/58 L 99 12/20/18 10:00 98.5 F 102 H 26 H 129/47 L 99 Weight Admit Weight 150 lb Weight 147 lb 11.355 oz Most Recent Monitor Data Heart Rate from ECG 103 NIBP 116/53 NIBP BP-Mean 74 Respiration from ECG 35 SpO2 98 I&O: 12/19/18 12/20/18 12/21/18 06:59 06:59 06:59 Intake Total 6344.8 1713.8 Output Total 1825 1345 Balance 4519.8 368.8 Result Diagrams: 12/20/18 05:49 12/20/18 05:49 Hospitalist ROS - Medication Medications: Active Medications Generic Name Dose Route Start Last Admin Trade Name Freq PRN Reason Stop Dose Admin Acetaminophen 650 mg 12/19/18 03:26 12/19/18 17:14 Tylenol [place] 650 mg Q4H PRN Administration Headache/Fever/Mild Pain (1-3) Enoxaparin Sodium 40 mg 12/19/18 09:00 12/20/18 10:15 Lovenox SC 40 mg 0900 [facility] Administration Famotidine 20 mg 12/19/18 09:00 12/20/18 20:26 Pepcid SLOW IVP 20 mg Q12HR [facility] Administration Fentanyl Citrate 2,000 mcg/ 100 mls @ 0 mls/hr 12/19/18 02:55 12/20/18 07:26 Sodium Chloride IV 01/18/19 02:55 100 mls INF [facility] Administration Protocol Per Protocol Cefepime HCl 2 gm/ Sodium 100 mls @ 200 mls/hr 12/19/18 04:00 12/20/18 17:26 Chloride IVPB 100 mls 0400,1600 [facility] Administration Sodium Chloride 1,000 mls @ 50 mls/hr 12/19/18 03:45 12/20/18 11:26 Normal Saline 0.9% IV 1,000 mls .Q20H [facility] Administration Vancomycin HCl 1 gm/ Device 200 mls @ 200 mls/hr 12/19/18 05:00 12/20/18 17: 28 IVPB 200 mls 0500,1700 [facility] Administration Fluconazole/Sodium Chloride 100 mls @ 100 mls/hr 12/19/18 09:00 12/20/18 10: 16 200 mg/ Device IVPB 100 mls DAILY [facility] Administration Levofloxacin 750 mg/ Device 150 mls @ 100 mls/hr 12/19/18 20:00 12/20/18 20: 25 IVPB 150 mls Q24HR [facility] Administration Lorazepam 2 mg 12/19/18 06:15 12/20/18 17:20 Ativan SLOW IVP 01/18/19 06:15 2 mg Q1H PRN Administration Breakthrough agitation Sodium Chloride 10 ml 12/19/18 21:00 12/20/18 20:26 Flush - Normal Saline IVF 10 ml Q12HR [facility] Administration - Exam General Appearance: ill appearing General - other findings: Intubated Eye: PERRL, anicteric sclera ENT: normocephalic atraumatic, no oropharyngeal lesions Neck: supple Heart: RRR, no gallops, no rubs Respiratory: CTAB, no wheezes, no rales, no ronchi Gastrointestinal: soft, non-tender, non-distended Extremities: no cyanosis, no clubbing, no edema Skin: normal turgor, no lesions, no rashes Neurological - other findings: intubated , not following commands Hosp A/P - Plan Chest X ray: no interval change Chest x ray: diffuse mixed infiltrates Chest Xray: bilateral diffuse infiltrates, small bilateral pleural effusions, mild vascular congestion This is a 78 year old female with past medical history of hypothyroidism, GERD, hypertension, depression, Lewy Body Dementia, Rheumatoid arthritis, Polymyalgia rheumatica who presented to the ER with hypoxia at rehab and sepsis. She has been intubated, on empiric antibiotics for pneumonia #Acute hypoxic respiratory failure possibly secondary to pneumonia vs rheumatoid lung #Sepsis secondary to bilateral pneumonia vs UTI - temp of 101, tachycardia, WBC of 19 on admission, increased to 21 now. Started on IV levaquin, vancomycin, IV cefepime and fluconazole for yeast in urine. Afebrile now. Currently intubated, has good tidal volumes now but currently not following commands - lactic acid 2.6, down to 2.0 now - per pulmonary could be pulmonary fibrosis but conservative management for now. Recommended antibiotic and steroid and no boipsy. Try one dose of IV steroid - received one dose of IV lasix, but hyponatremic Elevated TSH - possibly sick euthyroid - add free T4, reorder IV levothyroxine at 37, home dose 75 mg Hyponatremia - sodium 129, TSH elevated, reorder IV levothyroxine - check serum and urine osmolarity Anemia - Hb 7.6, check iron panel, B12, folate Depression -hold amitryptyline Code status: DNR
[2018-12-20] MEDS ORDERED: Levothyroxine 100 MCG SDV IVP SCH (21:56)
[2018-12-20] MEDS ORDERED: methylPREDNISolone Sod Succ 40 MG VIAL IVP SCH (22:15)
[2018-12-20 23:09] LABS: Iron 12 ug/dL (50-170); Iron Binding Capacity, Total 99 mcg/dL (265-497)
[2018-12-20 23:35] LABS: Free T4 (Free Thyroxine) 0.61 ng/dL (0.70-1.48)
[2018-12-21] MEDS: Lorazepam 2 MG/ML VIAL SLOW IVP PRN (00:39)
[2018-12-21] MEDS: Cefepime 2 GM in Sodium Chloride 0.9% 100 ML IVPB SCH ×2 (03:43→17:04)
[2018-12-21] MEDS: Vancomycin HCl 1 GM in Premix Bag 1 BAG IVPB SCH (04:14)
[2018-12-21 06:52] LABS: Hemoglobin 8.3 g/dL (12.0-16.0); Mean Corpuscular HGB CONC 32.6 g/dL (32.0-36.0); Mean Corpuscular Hemoglobin 28.6 pg (27.0-31.0); Mean Corpuscular Volume 87.7 fL (78.0-98.0); Mean Platelet Volume 7.2 fL (7.4-10.4); Platelet Count 328 thou/uL (130-400); RBC Distribution Width 13.9 % (11.5-14.5); White Blood Cell (WBC) Count 22.4 thou/uL (4.8-10.8)
[2018-12-21 06:53] LABS: Anion Gap 11 mmol/L (10-20); BUN (Urea Nitrogen) 17 mg/dL (9.8-20.1); Band 3 % (5-11); Calc. Creatinine Clearance 82 mL/min (70-130); Calcium 8.5 mg/dL (7.8-10.44); Carbon Dioxide 20 mmol/L (23-31); Chloride 102 mmol/L (98-107); Estimated GFR-MDRD Greater than 90; Glucose 156 mg/dL (83-110); Hypochromia SLIGHT = 6-15 cells (100X) (0-5/hpf); Lymphocytes 2 % (21-51); MDiff Complete? YES; Magnesium 1.7 mg/dL (1.6-2.6); Monocytes 2 % (0-10); Neutrophil 93 % (42-75); Platelet Morphology Comment Appears Adequate; Potassium 3.9 mmol/L (3.5-5.1); Sodium 129 mmol/L (136-145)
[2018-12-21 06:55] LABS: ALT (SGPT) 9 U/L (8-55); AST (SGOT) 25 U/L (5-34); Albumin 2.3 g/dL (3.4-4.8); Alkaline Phosphatase 117 U/L (40-110); Anion Gap 12 mmol/L (10-20); BUN (Urea Nitrogen) 18 mg/dL (9.8-20.1); Bilirubin, Total 0.3 mg/dL (0.2-1.2); Calc. Creatinine Clearance 78 mL/min (70-130); Calcium 8.5 mg/dL (7.8-10.44); Carbon Dioxide 21 mmol/L (23-31); Chloride 102 mmol/L (98-107); Estimated GFR-MDRD Greater than 90; Globulin 3.2 g/dL (2.4-3.5); Glucose 163 mg/dL (83-110); Phosphorus 2.9 mg/dL (2.3-4.7); Potassium 3.9 mmol/L (3.5-5.1); Protein, Total 5.5 g/dL (6.0-8.3); Sodium 131 mmol/L (136-145)
[2018-12-21 07:51] LABS: Actual Bicarbonate (HCO3a) 21.8 mEq/L (22-28); Base Excess (BEa) -3.5 mEq/L (-2.0 to +3.0); Carboxyhemoglobin (COHb) 1.5 gm% (0.0-3.0); Hemoglobin (Hb) 8.5 g/dL (12.0-16.0); Potassium - ABG Lab 3.85 mmol/L (3.70-5.30); pH, Arterial 7.35 (7.35-7.45)
[2018-12-21 08:00] LABS: Puncture Site RRA
[2018-12-21] MEDS: Enoxaparin Sodium 40 MG/0.4 ML SYRINGE SC SCH (08:48)
[2018-12-21] MEDS: Fluconazole In NaCl,Iso-Osm 200 MG in Premix Bag 1 BAG IVPB SCH (08:49)
[2018-12-21] MEDS: Famotidine/PF 20 mg/2ml Vial SLOW IVP SCH ×2 (08:49→20:37)
[2018-12-21] MEDS: Sodium Chloride 0.9% 1,000 ML IV SCH ×2 (08:57→15:30)
[2018-12-21] MEDS: fentaNYL Citrate/PF 2,000 MCG in Sodium Chloride 0.9% 60 ML IV SCH (09:10)
[2018-12-21] MEDS ORDERED: methylPREDNISolone Sod Succ 40 MG VIAL IVP SCH (09:30)
--- NOTE | 2018-12-21 10:00 | PRG ---
DATE OF SERVICE: 12/21/2018 SUBJECTIVE: Patricia Hightower remains intubated in the vent, mildly sedated. She barely opens her eyes. OBJECTIVE: VITAL SIGNS: Blood pressure 114/52, pulse 84, saturations are 100%, and respirations 18. I's and O's have been consistently ahead. CHEST: Bilateral rhonchi and crackles. CARDIAC: Normal S1, S2. No gallops. ABDOMEN: Soft. IMAGING STUDIES: X-ray shows diffuse infiltrates. LABORATORY DATA: White count 20,000; HCT 25, and platelet count 328. PO2 of 70, pCO2 of 40, pH 7.38, pressure support is 17, PEEP of 7, 50% of FiO2. Sodium 129. Albumin is only 2.3. IMPRESSION: 1. Respiratory failure. 2. 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 3. Dementia. 4. Hypothyroidism. PLAN: Minimize sedation. Adjust vent. Urine is growing vancomycin-resistant Enterococcus. I am not so sure this is a pathogen. May switch over to Zyvox tomorrow after a re-culture. Continue steroids, supportive care, nutrition. One-half hour of critical time. Job ID: [id number]
--- NOTE | 2018-12-21 12:45 | EKG ---
Test Reason : Blood Pressure : / mmHG Vent. Rate : 099 BPM Atrial Rate : 099 BPM P-R Int : 176 ms QRS Dur : 076 ms QT Int : 360 ms P-R-T Axes : 000 -29 -04 degrees QTc Int : 462 ms Sinus rhythm with Fusion complexes Low voltage QRS Inferior infarct , age undetermined Abnormal ECG Confirmed by APURVA SHAY D.O. ([id number]), editor house organ SHITAL RODRIGUEZ ([id number]) on 12/21/2018 12:45:32 PM Referred By: Confirmed By:APURVA SHAY D.O.
--- NOTE | 2018-12-21 17:05 | PDOC.HOSPP ---
- Subjective Encounter Date: 12/21/18 Encounter Time: 11:30 Subjective: Ms. Hightower was seen today in follow-up of respiratory failure. She is intubated. No new complaints. - Objective Vital Signs & Weight: Vital Signs (12 hours) Temp Pulse Resp BP Pulse Ox 12/21/18 16:00 97.5 F L 18 12/21/18 14:30 85 132/68 12/21/18 14:00 17 12/21/18 13:00 98.4 F 12/21/18 12:00 16 12/21/18 11:02 87 121/61 12/21/18 10:00 17 12/21/18 08:00 98.4 F 15 99 12/21/18 07:40 84 114/52 L 12/21/18 06:00 19 Weight Admit Weight 150 lb Weight 148 lb 5.938 oz Most Recent Monitor Data Heart Rate from ECG 86 NIBP 132/68 NIBP BP-Mean 89 Respiration from ECG 14 SpO2 99 I&O: 12/20/18 12/21/18 12/22/18 06:59 06:59 06:59 Intake Total 6344.8 3086.8 150 Output Total 1825 1780 254 Balance 4519.8 1306.8 -104 Result Diagrams: 12/21/18 05:54 12/21/18 05:54 Hospitalist ROS - Medication Medications: Active Medications Generic Name Dose Route Start Last Admin Trade Name Freq PRN Reason Stop Dose Admin Acetaminophen 650 mg 12/19/18 03:26 12/19/18 17:14 Tylenol [place] 650 mg Q4H PRN Administration Headache/Fever/Mild Pain (1-3) Enoxaparin Sodium 40 mg 12/19/18 09:00 12/21/18 08:48 Lovenox SC 40 mg 0900 [facility] Administration Famotidine 20 mg 12/19/18 09:00 12/21/18 08:49 Pepcid SLOW IVP 20 mg Q12HR [facility] Administration Fentanyl Citrate 2,000 mcg/ 100 mls @ 0 mls/hr 12/19/18 02:55 12/21/18 09:10 Sodium Chloride IV 01/18/19 02:55 100 mls INF [facility] Administration Protocol Per Protocol Cefepime HCl 2 gm/ Sodium 100 mls @ 200 mls/hr 12/19/18 04:00 12/21/18 03:43 Chloride IVPB 100 mls 0400,1600 [facility] Administration Sodium Chloride 1,000 mls @ 50 mls/hr 12/19/18 03:45 12/21/18 08:57 Normal Saline 0.9% IV 1,000 mls .Q20H [facility] Administration Fluconazole/Sodium Chloride 100 mls @ 100 mls/hr 12/19/18 09:00 12/21/18 08: 49 200 mg/ Device IVPB 100 mls DAILY [facility] Administration Levofloxacin 750 mg/ Device 150 mls @ 100 mls/hr 12/19/18 20:00 12/20/18 20: 25 IVPB 150 mls Q24HR [facility] Administration Lorazepam 2 mg 12/19/18 06:15 12/21/18 00:39 Ativan SLOW IVP 01/18/19 06:15 2 mg Q1H PRN Administration Breakthrough agitation Sodium Chloride 10 ml 12/19/18 21:00 12/21/18 08:50 Flush - Normal Saline IVF 10 ml Q12HR [facility] Administration - Exam Eye: PERRL, anicteric sclera Heart: RRR, no murmur, no gallops, no rubs, normal peripheral pulses Respiratory: CTAB (+ coarse breath sounds), no rales, no ronchi Gastrointestinal: soft, non-tender, non-distended, normal bowel sounds, no palpable masses, no hepatomegaly Extremities: no cyanosis, no clubbing, no edema Hosp A/P (1) Acute respiratory failure with hypoxemia Code(s): J96.01 - ACUTE RESPIRATORY FAILURE WITH HYPOXIA Status: Acute (2) Healthcare-associated pneumonia Code(s): J18.9 - PNEUMONIA, UNSPECIFIED ORGANISM Status: Acute (3) Sepsis Code(s): A41.9 - SEPSIS, UNSPECIFIED ORGANISM Status: Acute (4) UTI (urinary tract infection) Status: Acute Qualifiers: Urinary tract infection type: catheter-associated UTI Indwelling urinary catheter type: indwelling urethral catheter (5) Dementia Code(s): F03.90 - UNSPECIFIED DEMENTIA WITHOUT BEHAVIORAL DISTURBANCE Status: Chronic (6) Hypothyroidism Code(s): E03.9 - HYPOTHYROIDISM, UNSPECIFIED Status: Chronic (7) Rheumatoid arthritis Code(s): M06.9 - RHEUMATOID ARTHRITIS, UNSPECIFIED Status: Chronic (8) Anemia, normocytic normochromic Code(s): D64.9 - ANEMIA, UNSPECIFIED Status: Chronic - Plan * Acute respiratory failure- she continues with mechanical vent support * Rheumatoid Lung? with HAP- continue empiric antibiotics ( cefepime and Levaquin ) and Steroids * UTI- urine culture is growing cadida, but with low CFU- continue Diflucan * Anemia- likely due to chronic disease- will check a ferritin in the AM * Hypothyroidism- she is clinically euthyroid
[2018-12-21] MEDS: methylPREDNISolone Sod Succ 40 MG VIAL IVP SCH (20:37)
[2018-12-22] MEDS: Lorazepam 2 MG/ML VIAL SLOW IVP PRN ×3 (02:35→14:22)
[2018-12-22] MEDS: Propofol 1,000 MG/100 ML VIAL IV PRN ×2 (02:35→14:22)
[2018-12-22] MEDS: Cefepime 2 GM in Sodium Chloride 0.9% 100 ML IVPB SCH ×2 (04:39→16:16)
[2018-12-22] MEDS: fentaNYL Citrate/PF 2,000 MCG in Sodium Chloride 0.9% 60 ML IV SCH (05:05)
[2018-12-22 05:32] LABS: Band 4 % (5-11); Hemoglobin 7.4 g/dL (12.0-16.0); Lymphocytes 5 % (21-51); MDiff Complete? YES; Mean Corpuscular HGB CONC 32.3 g/dL (32.0-36.0); Mean Corpuscular Hemoglobin 28.5 pg (27.0-31.0); Mean Corpuscular Volume 88.3 fL (78.0-98.0); Mean Platelet Volume 7.2 fL (7.4-10.4); Monocytes 3 % (0-10); Neutrophil 88 % (42-75); Platelet Count 345 thou/uL (130-400); Platelet Morphology Comment Appears Adequate; RBC Distribution Width 13.8 % (11.5-14.5); RBC Morphology Normal; Red Blood Cell (RBC) Count 2.59 mill/uL (4.20-5.40); White Blood Cell (WBC) Count 21.1 thou/uL (4.8-10.8)
[2018-12-22 05:33] LABS: Anion Gap 11 mmol/L (10-20); BUN (Urea Nitrogen) 23 mg/dL (9.8-20.1); Calc. Creatinine Clearance 88 mL/min (70-130); Calcium 8.8 mg/dL (7.8-10.44); Carbon Dioxide 22 mmol/L (23-31); Chloride 103 mmol/L (98-107); Estimated GFR-MDRD Greater than 90; Glucose 155 mg/dL (83-110); Potassium 3.9 mmol/L (3.5-5.1); Sodium 132 mmol/L (136-145)
[2018-12-22 05:37] LABS: Phosphorus 2.9 mg/dL (2.3-4.7)
[2018-12-22 06:09] LABS: Ferritin 873.77 ng/mL (10-291); Free T4 (Free Thyroxine) 0.51 ng/dL (0.70-1.48)
[2018-12-22 06:10] LABS: Thyroid Stimulating Hormone 5.9267 uIU/mL (0.35-4.94)
[2018-12-22 07:23] LABS: Actual Bicarbonate (HCO3a) 21.6 mEq/L (22-28); Base Excess (BEa) -4.2 mEq/L (-2.0 to +3.0); CO2 Tension 42.6 mmHg (35.0-45.0); Calcium, Ionized 1.28 mmol/L (1.12-1.30); Carboxyhemoglobin (COHb) 1.5 gm% (0.0-3.0); Hemoglobin (Hb) 8.9 g/dL (12.0-16.0); O2 Tension (PaO2) 60.6 mmHg (> 70.0); Potassium - ABG Lab 4.04 mmol/L (3.70-5.30); pH, Arterial 7.32 (7.35-7.45)
[2018-12-22 07:24] LABS: Puncture Site RRA
[2018-12-22] MEDS: Famotidine/PF 20 mg/2ml Vial SLOW IVP SCH ×2 (09:40→20:39)
[2018-12-22] MEDS: Fluconazole In NaCl,Iso-Osm 200 MG in Premix Bag 1 BAG IVPB SCH (09:40)
[2018-12-22] MEDS: Enoxaparin Sodium 40 MG/0.4 ML SYRINGE SC SCH (09:40)
[2018-12-22] MEDS: Levothyroxine Sodium 75 MCG TAB PO SCH (09:41)
[2018-12-22] MEDS: methylPREDNISolone Sod Succ 40 MG VIAL IVP SCH ×2 (09:41→20:39)
[2018-12-22] MEDS: Liothyronine Sodium 5 MCG TAB PO SCH (09:41)
[2018-12-22] MEDS: Sodium Chloride 0.9% 1,000 ML IV SCH (09:45)
--- NOTE | 2018-12-22 09:54 | PRG ---
DATE OF SERVICE: 12/22/2018 SUBJECTIVE: Patricia Hightower remains intubated in the vent, sedated. OBJECTIVE: VITAL SIGNS: Temperature 98, pulse 80, blood pressure 130/60, respiratory rate 18. CHEST: Decreased breath sounds, no wheezing. CARDIAC: Normal S1, S2. ABDOMEN: No masses. LABORATORY DATA: PO2 is 60, PCO2 is 40, pH 7.32. Lytes are normal. White count 21,000, H and H are 7 and 21, platelet count normal. IMPRESSION: Respiratory failure, diffuse pulmonary infiltrates, etiology unclear, possibly rheumatoid lung disease versus acute respiratory distress syndrome. PLAN: Continue steroids, broad-spectrum antibiotics, deescalate antibiotics in the next 24 to 48 hours. Nutrition, PT. One-half hour of critical time. Job ID: [id number]
--- NOTE | 2018-12-22 10:55 | PDOC.HOSPP ---
- Subjective Encounter Date: 12/22/18 Encounter Time: 10:53 Subjective: Ms. Hightower was seen today in follow-up of respiratory failure. She is intubated. She will open her eyes, but she does not follow commands. - Objective Vital Signs & Weight: Vital Signs (12 hours) Temp Pulse Resp BP 12/22/18 10:00 14 12/22/18 08:00 18 12/22/18 06:59 96 134/60 12/22/18 06:00 18 12/22/18 04:00 98.1 F 15 12/22/18 03:18 84 12/22/18 02:00 12 12/22/18 00:00 97.7 F 16 12/21/18 23:44 89 127/60 Weight Admit Weight 150 lb Weight 157 lb 3.033 oz Most Recent Monitor Data Heart Rate from ECG 88 NIBP 134/60 NIBP BP-Mean 84 Respiration from ECG 12 SpO2 90 I&O: 12/21/18 12/22/18 12/23/18 06:59 06:59 06:59 Intake Total 3086.8 3007.4 30 Output Total 1780 702 Balance 1306.8 2305.4 30 Result Diagrams: 12/22/18 04:56 12/22/18 04:56 Hospitalist ROS - Medication Medications: Active Medications Generic Name Dose Route Start Last Admin Trade Name Freq PRN Reason Stop Dose Admin Acetaminophen 650 mg 12/19/18 03:26 12/19/18 17:14 Tylenol [place] 650 mg Q4H PRN Administration Headache/Fever/Mild Pain (1-3) Enoxaparin Sodium 40 mg 12/19/18 09:00 12/22/18 09:40 Lovenox SC 40 mg 0900 [facility] Administration Famotidine 20 mg 12/19/18 09:00 12/22/18 09:40 Pepcid SLOW IVP 20 mg Q12HR [facility] Administration Fentanyl Citrate 2,000 mcg/ 100 mls @ 0 mls/hr 12/19/18 02:55 12/22/18 05:05 Sodium Chloride IV 01/18/19 02:55 100 mls INF [facility] Administration Protocol Per Protocol Cefepime HCl 2 gm/ Sodium 100 mls @ 200 mls/hr 12/19/18 04:00 12/22/18 04:39 Chloride IVPB 100 mls 0400,1600 [facility] Administration Sodium Chloride 1,000 mls @ 50 mls/hr 12/19/18 03:45 12/22/18 09:45 Normal Saline 0.9% IV 1,000 mls .Q20H [facility] Administration Fluconazole/Sodium Chloride 100 mls @ 100 mls/hr 12/19/18 09:00 12/22/18 09: 40 200 mg/ Device IVPB 100 mls DAILY [facility] Administration Levofloxacin 750 mg/ Device 150 mls @ 100 mls/hr 12/19/18 20:00 12/21/18 20: 37 IVPB 150 mls Q24HR [facility] Administration Levothyroxine Sodium 75 mcg 12/22/18 09:00 12/22/18 09:41 Synthroid PO 75 mcg DAILY [facility] Administration Liothyronine Sodium 5 mcg 12/22/18 09:00 12/22/18 09:41 Cytomel PO 5 mcg DAILY [facility] Administration Lorazepam 2 mg 12/19/18 06:15 12/22/18 07:01 Ativan SLOW IVP 01/18/19 06:15 2 mg Q1H PRN Administration Breakthrough agitation Methylprednisolone Sodium Succinate 40 mg 12/21/18 21:00 12/22/18 09:41 Solu-Medrol IVP 40 mg BID [facility] Administration Propofol 1,000 mg 12/19/18 06:15 12/22/18 02:35 Diprivan IV 01/18/19 06:15 1,000 mg INF PRN Administration TO ACHIEVE GOAL RASS Protocol Sodium Chloride 10 ml 12/19/18 21:00 12/21/18 22:24 Flush - Normal Saline IVF 10 ml Q12HR [facility] Administration - Exam Eye: PERRL, anicteric sclera Heart: RRR, no murmur, no gallops, no rubs Respiratory: CTAB (+ occasional rhonchi bilaterally) Gastrointestinal: soft, non-tender, non-distended, normal bowel sounds, no palpable masses, no hepatomegaly Extremities: no cyanosis (+ RA changes in the hands), no edema Hosp A/P (1) Acute respiratory failure with hypoxemia Code(s): J96.01 - ACUTE RESPIRATORY FAILURE WITH HYPOXIA Status: Acute (2) Healthcare-associated pneumonia Code(s): J18.9 - PNEUMONIA, UNSPECIFIED ORGANISM Status: Acute (3) Sepsis Code(s): A41.9 - SEPSIS, UNSPECIFIED ORGANISM Status: Acute (4) UTI (urinary tract infection) Status: Acute Qualifiers: Urinary tract infection type: catheter-associated UTI Indwelling urinary catheter type: indwelling urethral catheter (5) Dementia Code(s): F03.90 - UNSPECIFIED DEMENTIA WITHOUT BEHAVIORAL DISTURBANCE Status: Chronic (6) Hypothyroidism Code(s): E03.9 - HYPOTHYROIDISM, UNSPECIFIED Status: Chronic (7) Rheumatoid arthritis Code(s): M06.9 - RHEUMATOID ARTHRITIS, UNSPECIFIED Status: Chronic (8) Anemia, normocytic normochromic Code(s): D64.9 - ANEMIA, UNSPECIFIED Status: Chronic - Plan * Acute respiratory failure- she continues with mechanical vent support * Rheumatoid Lung? with HAP- continue empiric antibiotics ( cefepime and Levaquin ) and Steroids * UTI-continue Diflucan * Anemia-consistent with anemia of chronic disease- continue to monitor, and transfuse as needed * Hypothyroidism- she is clinically euthyroid
[2018-12-23] MEDS: fentaNYL Citrate/PF 2,000 MCG in Sodium Chloride 0.9% 60 ML IV SCH (00:39)
[2018-12-23] MEDS: Propofol 1,000 MG/100 ML VIAL IV PRN (02:48)
[2018-12-23] MEDS: Cefepime 2 GM in Sodium Chloride 0.9% 100 ML IVPB SCH (04:49)
[2018-12-23 05:30] LABS: #Lymphocytes 0.7 thou/uL (1.20-3.40); #Monocytes 1.3 thou/uL (0.11-0.59); #Neutrophils 16.3 thou/uL (1.40-6.50); %Eosinophils 0.3 % (0.0-10.0); %Lymphocytes 3.9 % (21.0-51.0); %Monocytes 6.9 % (0.0-10.0); Hemoglobin 7.8 g/dL (12.0-16.0); Mean Corpuscular HGB CONC 31.4 g/dL (32.0-36.0); Mean Platelet Volume 6.9 fL (7.4-10.4); Platelet Count 372 thou/uL (130-400); RBC Distribution Width 13.9 % (11.5-14.5); White Blood Cell (WBC) Count 18.3 thou/uL (4.8-10.8)
[2018-12-23 05:51] LABS: Phosphorus 2.9 mg/dL (2.3-4.7)
[2018-12-23 05:53] LABS: Anion Gap 12 mmol/L (10-20); BUN (Urea Nitrogen) 15 mg/dL (9.8-20.1); Calc. Creatinine Clearance 92 mL/min (70-130); Calcium 8.6 mg/dL (7.8-10.44); Carbon Dioxide 23 mmol/L (23-31); Chloride 104 mmol/L (98-107); Estimated GFR-MDRD Greater than 90; Glucose 126 mg/dL (83-110); Magnesium 2.1 mg/dL (1.6-2.6); Potassium 4.3 mmol/L (3.5-5.1); Sodium 135 mmol/L (136-145)
[2018-12-23] MEDS: Sodium Chloride 0.9% 1,000 ML IV SCH (06:45)
[2018-12-23] MEDS: Enoxaparin Sodium 40 MG/0.4 ML SYRINGE SC SCH (09:49)
[2018-12-23] MEDS: Fluconazole In NaCl,Iso-Osm 200 MG in Premix Bag 1 BAG IVPB SCH (09:50)
[2018-12-23] MEDS: Famotidine/PF 20 mg/2ml Vial SLOW IVP SCH (09:50)
[2018-12-23] MEDS: Liothyronine Sodium 5 MCG TAB PO SCH (09:50)
[2018-12-23] MEDS: Levothyroxine Sodium 75 MCG TAB PO SCH (09:50)
[2018-12-23] MEDS: methylPREDNISolone Sod Succ 40 MG VIAL IVP SCH (09:51)
--- NOTE | 2018-12-23 09:52 | RAD ---
RADIOGRAPH CHEST 1 VIEW: Date: 12/23/2018. Time: 4:43 a.m. HISTORY: A 78-year-old female in respiratory failure. COMPARISON: 12/10/2018, 4:20 a.m. FINDINGS: Endotracheal tube distal tip is now 1 to 1.5 cm superior to the violet, perhaps due to patient positi onal differences. Esophagogastric tube remains. No cardiomegaly. Severe bilateral alveolar infiltr ates are unchanged. No pneumothorax. IMPRESSION: No interval change in the severe bilateral infiltrates: evidence of ARDS (adult respiratory distress syndrome). JN [] POS: TPC
[2018-12-23] MEDS: Morphine 10 MG/ML VIAL SLOW IVP PRN ×3 (12:55→21:52)
--- NOTE | 2018-12-23 18:42 | PDOC.HOSPP ---
- Subjective Encounter Date: 12/23/18 Encounter Time: 10:30 Subjective: Ms. Hightower was seen today in follow-up of respiratory failure. She is intubated. There has been no significant change overnight. - Objective Vital Signs & Weight: Vital Signs (12 hours) Temp Pulse Resp BP Pulse Ox 12/23/18 12:00 98.5 F 15 12/23/18 10:48 83 142/62 H 12/23/18 10:00 11 L 12/23/18 08:00 12 94 L 12/23/18 07:00 98.1 F 12/23/18 06:53 86 128/62 Weight Admit Weight 150 lb Weight 161 lb 2.526 oz Most Recent Monitor Data Heart Rate from ECG 103 NIBP 142/57 NIBP BP-Mean 85 Respiration from ECG 17 SpO2 94 I&O: 12/22/18 12/23/18 12/24/18 06:59 06:59 06:59 Intake Total 3007.4 2866.2 222.7 Output Total 702 911 645 Balance 2305.4 1955.2 -422.3 Result Diagrams: 12/23/18 05:20 12/23/18 05:20 Hospitalist ROS - Medication Medications: Active Medications Generic Name Dose Route Start Last Admin Trade Name Freq PRN Reason Stop Dose Admin Acetaminophen 650 mg 12/19/18 03:26 12/19/18 17:14 Tylenol MT 650 mg Q4H PRN Administration Headache/Fever/Mild Pain (1-3) Sodium Chloride 1,000 mls @ 50 mls/hr 12/19/18 03:45 12/23/18 06:45 Normal Saline 0.9% IV 1,000 mls .Q20H BETHANY Administration Lorazepam 2 mg 12/19/18 06:15 12/22/18 14:22 Ativan SLOW IVP 01/18/19 06:15 2 mg Q1H PRN Administration Breakthrough agitation Morphine Sulfate 10 mg 12/23/18 12:00 12/23/18 17:03 Morphine SLOW IVP 01/18/19 06:15 10 mg Q1H PRN Administration BREAKTHROUGH PAIN/Agitation Sodium Chloride 10 ml 12/19/18 21:00 12/23/18 09:52 Flush - Normal Saline IVF 10 ml Q12HR BETHANY Administration - Exam Eye: PERRL Heart: RRR, no murmur, no gallops, no rubs, normal peripheral pulses Respiratory: no rales (coarse breath sounds bilaterally) Gastrointestinal: soft, non-tender, non-distended, normal bowel sounds, no palpable masses, no hepatomegaly, no splenomegaly Extremities: no cyanosis, 1+ LE edema Hosp A/P (1) Acute respiratory failure with hypoxemia Code(s): J96.01 - ACUTE RESPIRATORY FAILURE WITH HYPOXIA Status: Acute (2) Healthcare-associated pneumonia Code(s): J18.9 - PNEUMONIA, UNSPECIFIED ORGANISM Status: Acute (3) Sepsis Code(s): A41.9 - SEPSIS, UNSPECIFIED ORGANISM Status: Acute (4) UTI (urinary tract infection) Status: Acute Qualifiers: Urinary tract infection type: catheter-associated UTI Indwelling urinary catheter type: indwelling urethral catheter (5) Dementia Code(s): F03.90 - UNSPECIFIED DEMENTIA WITHOUT BEHAVIORAL DISTURBANCE Status: Chronic (6) Hypothyroidism Code(s): E03.9 - HYPOTHYROIDISM, UNSPECIFIED Status: Chronic (7) Rheumatoid arthritis Code(s): M06.9 - RHEUMATOID ARTHRITIS, UNSPECIFIED Status: Chronic (8) Anemia, normocytic normochromic Code(s): D64.9 - ANEMIA, UNSPECIFIED Status: Chronic - Plan * Acute respiratory failure- she continues with mechanical vent support * Rheumatoid Lung? with HAP- continue empiric antibiotics ( cefepime and Levaquin ) and Steroids * UTI-continue Diflucan * Anemia-stable * Hypothyroidism- stable * Await input from the family regarding continued treatment
--- NOTE | 2018-12-23 20:27 | PRG ---
DATE OF SERVICE: 12/23/2018 SUBJECTIVE: Patricia Hightower clinically unchanged over the weekend. OBJECTIVE: VITAL SIGNS: Have been stable. LUNGS: Unchanged. HEART: Unchanged. ABDOMEN: Unchanged. LABORATORY DATA: Lab today showed a white count of 18.3, hemoglobin 7.8, platelets 372. Sodium 135, potassium 4.3, chloride 104, bicarb 23, BUN 15, and creatinine 0.57. No blood gas was done today. PLAN: Family decided they want to withdraw care, move forward with comfort measures. I met with the daughter and the son. They both are very clear about this, state that she would not want to continue like this. I actually do not think she can recover from this. I suspect her reason for intubation was just muscle weakness more than her interstitial lung disease or pneumonia. Once she is extubated, she will be kept comfortable. She can move out of the Critical Care Unit. Critical care time is 35 minutes. Job ID: [id number] MTDD
--- NOTE | 2018-12-23 23:05 | EKG ---
Test Reason : Blood Pressure : / mmHG Vent. Rate : 106 BPM Atrial Rate : 106 BPM P-R Int : 214 ms QRS Dur : 088 ms QT Int : 340 ms P-R-T Axes : 039 -09 044 degrees QTc Int : 451 ms Sinus tachycardia with 1st degree A-V block Otherwise normal ECG When compared with ECG of 19-DEC-2018 02:21, (Unconfirmed) Fusion complexes are no longer Present NH interval has increased Confirmed by HAILE BIGGS M.D. ([id number]) on 12/23/2018 11:04:48 PM Referred By: DOM kenyon Confirmed By:HAILE BIGGS M.D.
[2018-12-24] MEDS: Morphine 10 MG/ML VIAL SLOW IVP PRN ×4 (02:14→15:08)
[2018-12-24] MEDS: Sodium Chloride 0.9% 1,000 ML IV SCH (07:36)
[2018-12-24 07:41] VITALS: BP 116/55; TEMP 99.9
[2018-12-24] MEDS ORDERED: Morphine 10 MG/ML VIAL SLOW IVP PRN ×2 (08:12→15:02)
[2018-12-24] MEDS: Lorazepam 2 MG/ML VIAL SLOW IVP PRN ×2 (08:20→16:53)
[2018-12-24] MEDS: Morphine 4 MG/ML VIAL SLOW IVP PRN ×4 (09:27→13:58)
[2018-12-24] MEDS ORDERED: Scopolamine 1.5 mg/72 hour Patch TD PRN (15:03)
--- NOTE | 2018-12-24 16:47 | PDOC.HOSPP ---
- Subjective Encounter Date: 12/24/18 Encounter Time: 16:45 Subjective: Ma. Hightower was seen today in follow-up of respiratory failure. She has been extubated and moved to the medical floor. Family is at bedside. - Objective Vital Signs & Weight: Vital Signs (12 hours) Temp Pulse Resp BP Pulse Ox 12/24/18 07:38 99.9 F H 108 H 22 H 116/55 L 61 L Weight Admit Weight 150 lb Weight 161 lb 2.526 oz Most Recent Monitor Data Heart Rate from ECG 89 NIBP 135/63 NIBP BP-Mean 87 Respiration from ECG 14 SpO2 94 I&O: 12/23/18 12/24/18 12/25/18 06:59 06:59 06:59 Intake Total 2866.2 871.5 Output Total 911 945 Balance 1955.2 -73.5 Result Diagrams: 12/23/18 05:20 12/23/18 05:20 Hospitalist ROS - Medication Medications: Active Medications Generic Name Dose Route Start Last Admin Trade Name Freq PRN Reason Stop Dose Admin Acetaminophen 650 mg 12/19/18 03:26 12/19/18 17:14 Tylenol AR 650 mg Q4H PRN Administration Headache/Fever/Mild Pain (1-3) Sodium Chloride 1,000 mls @ 50 mls/hr 12/19/18 03:45 12/24/18 07:36 Normal Saline 0.9% IV Not Given .Q20H BETHANY Lorazepam 1 mg 12/24/18 08:12 12/24/18 08:20 Ativan SLOW IVP 1 mg Q1H PRN Administration Anxiety/Agitation Morphine Sulfate 4 mg 12/24/18 09:22 12/24/18 13:58 Morphine SLOW IVP 4 mg Q1H PRN Administration BREAKTHROUGH PAIN/Agitation Sodium Chloride 10 ml 12/19/18 21:00 12/24/18 07:04 Flush - Normal Saline IVF Not Given Q12HR BETHANY - Exam Eye: anicteric sclera Heart: RRR, no murmur, no gallops, no rubs, normal peripheral pulses Respiratory: CTAB, no wheezes, no rales, no ronchi, normal chest expansion Gastrointestinal: soft, non-distended Extremities: 1+ LE edema Hosp A/P (1) Acute respiratory failure with hypoxemia Code(s): J96.01 - ACUTE RESPIRATORY FAILURE WITH HYPOXIA Status: Acute (2) Healthcare-associated pneumonia Code(s): J18.9 - PNEUMONIA, UNSPECIFIED ORGANISM Status: Acute (3) Sepsis Code(s): A41.9 - SEPSIS, UNSPECIFIED ORGANISM Status: Acute (4) UTI (urinary tract infection) Status: Acute Qualifiers: Urinary tract infection type: catheter-associated UTI Indwelling urinary catheter type: indwelling urethral catheter (5) Dementia Code(s): F03.90 - UNSPECIFIED DEMENTIA WITHOUT BEHAVIORAL DISTURBANCE Status: Chronic (6) Hypothyroidism Code(s): E03.9 - HYPOTHYROIDISM, UNSPECIFIED Status: Chronic (7) Rheumatoid arthritis Code(s): M06.9 - RHEUMATOID ARTHRITIS, UNSPECIFIED Status: Chronic (8) Anemia, normocytic normochromic Code(s): D64.9 - ANEMIA, UNSPECIFIED Status: Chronic - Plan * Acute respiratory failure due to Rheumatoid Interstitial Lung disease- She has been taken off the ventilator, and antibiotics have been discontinued * She is being evaluated for Hospice
--- NOTE | 2018-12-25 12:16 | DIS ---
DATE OF ADMISSION: 12/19/2018 DATE OF DISCHARGE: 12/24/2018 DISCHARGE DISPOSITION: Inpatient hospice. DISCHARGE DIAGNOSES: 1. Acute on chronic respiratory failure with hypoxemia. 2. Rheumatoid interstitial pulmonary fibrosis. 3. Lewy body dementia. 4. Rheumatoid arthritis. 5. Polymyalgia rheumatica. 6. Hypertension. 7. Osteoarthritis. 8. Hypothyroidism. 9. Gastroesophageal reflux disease. DISCHARGE MEDICATIONS: None. PROCEDURES DONE DURING ADMISSION: No special procedures. ALLERGIES: NO KNOWN DRUG ALLERGIES. CODE STATUS: DNR. HOSPITAL COURSE: Ms. Hightower is a 78-year-old female, who was admitted to the hospital with shortness of breath and hypoxemia. She was found to have an exacerbation of an interstitial lung disease. It was also thought that she may have a hospital-acquired pneumonia. She was admitted to the ICU and seen by Pulmonology. She required intubation. She remained on the ventilator during the majority of her hospital stay and it appeared she was going to have difficulty with weaning. The family had noted that this was never one of her wishes to be intubated and the decision was made for terminal extubation. The patient was extubated and eventually moved out of the ICU to the medical floor. Family was at bedside and she was then transitioned into inpatient hospice facility. Job ID: [id number]
== END 2018-12-24 17:12 | disposition hospice, inpatient (51) | DRG 870 ==
LOC: ERS 02:08 → CCU 05:57 → T4-A 12-23 21:43
PROVIDERS: ADMIT Internal Medicine; ATTEND Internal Medicine
PROC: 5A1955Z Respiratory Ventilation, Greater than 96 Consecutive Hours (ICD-10-PCS; principal; 2018-12-19)
PROC: 0BH17EZ Insertion of Endotracheal Airway into Trachea, Via Natural or Artificial Opening (ICD-10-PCS; 2018-12-19)
DX: A41.9 Sepsis, unspecified organism (principal); J96.01 Acute respiratory failure with hypoxia; J18.9 Pneumonia, unspecified organism; T83.511A Infection and inflammatory reaction due to indwelling urethral catheter, initial encounter; N39.0 Urinary tract infection, site not specified; E87.1 Hypo-osmolality and hyponatremia; E46 Unspecified protein-calorie malnutrition; R65.20 Severe sepsis without septic shock; K21.9 Gastro-esophageal reflux disease without esophagitis; E03.9 Hypothyroidism, unspecified; M06.9 Rheumatoid arthritis, unspecified; M35.3 Polymyalgia rheumatica; Z66 Do not resuscitate; F32.9 Major depressive disorder, single episode, unspecified; D63.8 Anemia in other chronic diseases classified elsewhere; Z51.5 Encounter for palliative care; Z68.26 Body mass index [BMI] 26.0-26.9, adult
CPT/HCPCS: 31500; 36415; 36416; 36430; 51702; 71045; 80048; 80202; 81003; 81015; 82607; 82728; 82746; 82805; 83540; 83550; 83605; 83735; 83930; 83935; 84100; 84439; 84443; 84481; 85025; 86850; 86900; 86901; 87040; 87086; 93005; 93010; 94002; 94003; 96365; 96366; 96368; 96375; 96376; J0171; J0692; J1450; J1650; J1940; J1956; J2060; J2270; J2543; J2704; J2920; J3010; J3370; J3490; P9016; S0028

== ENCOUNTER 2018-12-24 17:35 | Inpatient (IN) | payer OTHER ==
[2018-12-24] MEDS ORDERED: Ondansetron PF 4 MG/2 ML Vial SLOW IVP PRN (19:37)
[2018-12-24] MEDS ORDERED: Scopolamine 1.5 mg/72 hour Patch TOP SCH (20:00)
[2018-12-24] MEDS: Morphine 10 MG/ML VIAL SLOW IVP SCH ×2 (20:06→23:22)
[2018-12-24] MEDS: Sodium Chloride 0.9% 1,000 ML IV SCH (21:03)
[2018-12-24] MEDS: Lorazepam 2 MG/ML VIAL SLOW IVP SCH (21:03)
[2018-12-25] MEDS: Lorazepam 2 MG/ML VIAL SLOW IVP SCH ×6 (00:57→21:08)
[2018-12-25] MEDS: Morphine 10 MG/ML VIAL SLOW IVP SCH ×7 (03:00→21:12)
[2018-12-25] MEDS: Sodium Chloride 0.9% 1,000 ML IV SCH (21:07)
[2018-12-25 21:16] VITALS: BP 80/49; TEMP 98.7
--- NOTE | 2018-12-26 12:54 | DIS ---
DATE OF ADMISSION: 12/24/2018 DATE OF DISCHARGE: 12/25/2018 SUMMARY BRIEF SUMMARY OF HOSPITALIZATION: The patient is a 78-year-old white female who was initially admitted to [facility] on 12/19/2018 with [id number] respiratory failure with hypoxemia. The patient had a history of rheumatoid interstitial pulmonary fibrosis and was admitted due to exacerbation of her interstitial lung disease and may have had hospital-acquired pneumonia as well. She was admitted to the ICU and was intubated. Her course continued to be extremely poor with a very poor prognosis and the family determined it was not the choice of the patient to be intubated [employer] and thus desire was to make a terminal extubation which occurred and the patient was discharged from acute stay and admitted to inpatient hospice on 12/24/2018. The patient required inpatient hospice due to terminal restlessness and acute respiratory failure with hypoxemia and shortness of breath requiring supplemental oxygen, IV morphine, as well as IV Ativan. The patient was given scopolamine patches and other comfort measures. Over the next 24 hours, the patient's symptoms improved to the point that she was more comfortable. Family was by bedside and the patient had frequent nursing visits. On 12/25/2018, the patient was found by nursing staff at 2320 hours to have lack of respirations, no pulse, no response to painful stimuli, and thus was pronounced by the charge nurse at 2320 hours on 12/25/2018. Hospice nurse was notified. The family was consoled and body was released to the home per patient wishes. TIME OF : 12/25/2018 at 2320 hours. CAUSE OF : Asystole secondary to cardiac arrhythmia due to [id number] respiratory failure with hypoxemia. Job ID: [id number]
--- NOTE | 2019-01-23 18:43 | PQF ---
BUNNY LARIOS KIA E MD [id number] CLINICAL DOCUMENTATION CLARIFICATION FORM: POST DISCHARGE Addendum to original discharge summary date: ____ Late entry note date: __ DATE: 01/23/19 ATTN: Sally Akins Please exercise your independent, professional judgment in responding to the clarification form. Clinical indicators are provided on the bottom of this form for your review Please check appropriate box(s): I (concur) with the Wound Care findings as stated below. [ ] Pressure Ulcer: (Stage I: Erythema; Stage II: Partial thickness; Stage III : Full thickness; Stage IV: Necrosis to muscle/bone) [ ] Location: POA: [ ] Yes [ ] No[ ] Unable to determine Stage (I to IV): (Left Right Bilateral N/A ) [ ] Location: POA: [ ] Yes [ ] No[ ] Unable to determine Stage (I to IV): (Left Right Bilateral N/A ) [ ] Location: POA: [ ] Yes [ ] No[ ] Unable to determine Stage (I to IV): (Left Right Bilateral N/A ) [ ] Gangrene present [ ] Yes [ ] ischemic gangrene [ ] gas gangrene [ ] No [ ] No pressure ulcer diagnosis [ ] Deep tissue injury [ ] Other diagnosis [ ] Unable to determine In addition, please specify: Present on Admission (POA): [ ] Yes [ ] No [ ] Unable to determine For continuity of documentation, please document condition throughout progress notes and discharge summary. Thank You. CLINICAL INDICATORS - SIGNS / SYMPTOMS / LABS DS p1 12/25 Dr Fraser admitted to hospice due to restlessness and respiratory failure Nursing Assessment: Ulcer Sacrum stage 3 RISK FACTORS: DS p1 12/25 78-year-old White Female DS p1 12/25 Rheumatoid interstitial pulmonary fibrosis TREATMENTS: Nursing Assessment: Bar soaps avoided Nursing Assessment: positioning changes q2h in bed Nursing Assessment: Turn 30degrees side to side. Support pillows placed DS p1 12/25 Comfort care (This form is maintained as a part of the permanent medical record) 2014 [employer]. All Rights Reserved [email or web address] [not provided] MTDD
--- NOTE | 2019-01-23 18:46 | PQF ---
BUNNY LARIOS KIA E MD [id number] CLINICAL DOCUMENTATION CLARIFICATION FORM: POST DISCHARGE Addendum to original discharge summary date: ____ Late entry note date: __ DATE: 01/23/19 ATTN: Sally Akins Please exercise your independent, professional judgment in responding to the clarification form. Clinical indicators are provided on the bottom of this form for your review In your clinical opinion based on clinical findings below, can you please identify the etiology of Acute on Chronic Respiratory Failure if due to: Please check appropriate box(s): [ ] Hospital Acquired Pneumonia [ ] Pulmonary fibrosis exacerbation [ ] Other diagnosis [ ] Unable to determine In addition, please specify: Present on Admission (POA): [ ] Yes [ ] No [ ] Unable to determine For continuity of documentation, please document condition throughout progress notes and discharge summary. Thank You. CLINICAL INDICATORS - SIGNS / SYMPTOMS / LABS DS p1 12/25 Dr Fraser Initially admitted to [facility] on 12/19 with Acute on chronic Respiraotry Failure DS p1 12/25 Dr Fraser recently admitted due to exacerbation of her interstitial lung disease and may have hospital acquired pneumonia DS p1 12/25 Dr Fraser extremely poor with a very poor prognosis and family determined it was not the choice of patient to be intubated jail DS p1 12/25 Dr Fraser admitted to hospice due to restlessness and respiratory failure RISK FACTORS DS p1 12/25 78-year-old White Female DS p1 12/25 Rheumatoid interstitial pulmonary fibrosis DS p1 12/25 Recent hospital acquired Pneumonia DS p1 12/25 Cause of asystole 2/2 cardiac arrhythmia due to acute on chronic Respiratory failure TREATMENTS: DS p1 12/25 Supplemental Oxygen DS p1 12/25 IV morphine DS p1 12/25 Comfort care (This form is maintained as a part of the permanent medical record) 2015 [employer]. All Rights Reserved [email or web address] [not provided] MTDD
--- NOTE | 2019-01-23 18:47 | PQF ---
BUNNY LARIOS KIA E MD [id number] CLINICAL DOCUMENTATION CLARIFICATION FORM: POST DISCHARGE Addendum to original discharge summary date: ____ Late entry note date: __ DATE: 01/23/19 ATTN: Sally Akins Please exercise your independent, professional judgment in responding to the clarification form. Clinical indicators are provided on the bottom of this form for your review Please check appropriate box(s): [ ] Acute Toxic Encephalopathy [ ] Acute Metabolic Encephalopathy [ ] Transient Alteration of Awareness [ ] Other diagnosis [ ] Unable to determine In addition, please specify: Present on Admission (POA): [ ] Yes [ ] No [ ] Unable to determine For continuity of documentation, please document condition throughout progress notes and discharge summary. Thank You. CLINICAL INDICATORS - SIGNS / SYMPTOMS / LABS DS p1 12/25 Dr Fraser Initially admitted to [facility] on 12/19 with Acute on chronic Respiraotry Failure DS p1 12/25 Dr Fraser recently admitted due to exacerbation of her interstitial lung disease and may have hospital acquired pneumonia DS p1 12/25 Dr Fraser extremely poor with a very poor prognosis and family determined it was not the choice of patient to be intubated fdc DS p1 12/25 Dr Fraser admitted to hospice due to restlessness and respiratory failure RISK FACTORS DS p1 12/25 78-year-old White Female DS p1 12/25 Rheumatoid interstitial pulmonary fibrosis DS p1 12/25 Recent hospital acquired Pneumonia DS p1 12/25 Cause of asystole 2/2 cardiac arrhythmia due to acute on chronic Respiratory failure TREATMENTS: DS p1 12/25 Supplemental Oxygen DS p1 12/25 IV morphine DS p1 12/25 Comfort care (This form is maintained as a part of the permanent medical record) 2014 [employer]. All Rights Reserved Demi [email or web address] [not provided] MTDD
== END 2018-12-25 23:20 | disposition expired | DRG 951 ==
LOC: T4-A 17:35
PROVIDERS: ADMIT Family Medicine; ATTEND Family Medicine
DX: Z51.5 Encounter for palliative care (principal); J96.21 Acute and chronic respiratory failure with hypoxia; J84.10 Pulmonary fibrosis, unspecified; I49.9 Cardiac arrhythmia, unspecified; Z66 Do not resuscitate; G31.83 Neurocognitive disorder with Lewy bodies; F02.80 Dementia in other diseases classified elsewhere, unspecified severity, without behavioral disturbance, psychotic disturbance, mood disturbance, and anxiety; M35.3 Polymyalgia rheumatica; I10 Essential (primary) hypertension; M19.90 Unspecified osteoarthritis, unspecified site; E03.9 Hypothyroidism, unspecified; K21.9 Gastro-esophageal reflux disease without esophagitis; F41.9 Anxiety disorder, unspecified; F32.9 Major depressive disorder, single episode, unspecified; M05.10 Rheumatoid lung disease with rheumatoid arthritis of unspecified site; Z87.440 Personal history of urinary (tract) infections; Z79.899 Other long term (current) drug therapy
CPT/HCPCS: J2060; J2270